=== PATIENT | female | born 1965 | race Asian ===

== ENCOUNTER 2020-03-28 13:14 | Outpatient (REF) | payer OTHER, SELFPAY ==
[2020-03-28 14:08] LABS: Basophils Absolute Auto 0.1 X10*3/uL (0.0-0.2); Basophils Percent Auto 1.8 % (0-2); Eosinophils Absolute Auto 0.7 X10*3/uL (0.0-0.4); Eosinophils Percent Auto 9.1 % (0-4); Imm Gran Abs Auto 0.02 X10*3/uL (0.00-0.03); Imm Gran Pct Auto 0.3 % (0.0-0.4); MANUAL DIFF FLAG SCAN; SCAN SMEAR FLAG 1
[2020-03-28 14:10] LABS: Hematocrit 25.3 % (37-47); Lymphocytes Absolute Auto 2.4 X10*3/uL (1.2-4.9); Lymphocytes Percent Auto 33.7 % (20-40); Mean Corpuscular HGB Conc 24.9 g/dl (31.0-35.0); Mean Corpuscular Hemoglobin 13.3 pg (27.0-33.0); Monocytes Absolute Auto 0.7 X10*3/uL (0.1-1.2); Monocytes Percent Auto 9.1 % (2-11); NRBC Pct Auto 0.6 /100WBC (0.0-0.2); Neutrophils Absolute Auto 3.3 X10*3/uL (2.0-8.3); Platelet Count 434 X10*3/uL (160-400); Red Blood Count 4.74 X10*6/uL (4.20-5.50); Red Cell Distribution Width 21.7 % (11.0-16.0); White Blood Count 7.3 X10*3/uL (4.8-10.8)
[2020-03-28 14:18] LABS: Mean Corpuscular Volume 53.4 fL (80-98)
[2020-03-28 14:19] LABS: Estimated Average Glucose 108 mg/dL; Hemoglobin A1c % 5.4 %
[2020-03-28 14:20] LABS: PLT ABN DIST 1
[2020-03-28 14:27] LABS: Hemoglobin 6.3 g/dl (12.0-16.0)
[2020-03-28 14:43] LABS: Anion Gap 12 (12-20); Blood Urea Nitrogen 14 mg/dL (9-16); Carbon Dioxide 25 mmol/L (22-29); Chloride 108 mmol/L (96-108); Cholesterol 115 mg/dL; Estimated Glomerular Filt Rate > 60; Glucose Fasting 94 mg/dL (60-99); HDL Cholesterol 34 mg/dL; LDL Cholesterol Calculated 57 mg/dl; Potassium 4.9 mmol/l (3.3-5.1); Sodium 140 mmol/L (135-145); Triglycerides 123 mg/dL
[2020-03-28 15:00] LABS: SLIDE REVIEW VERIFIED
[2020-03-28 15:01] LABS: Erythrocyte Sedimentation Rate 28 MM/HR (0-20)
[2020-03-30 09:37] LABS: SARS COV2 IgG Negative (Negative)
== END 2020-03-28 13:15 | disposition home or self-care (01) ==
LOC: HO.HMGCLDS 13:14
PROVIDERS: PCP Internal Medicine; Visit Provider Internal Medicine
DX: Z20.828 Contact with and (suspected) exposure to other viral communicable diseases (principal)
CPT/HCPCS: 36415; 80048; 80061; 83036; 85025; 85060; 85652; 86769

== ENCOUNTER 2020-04-09 12:12 | Outpatient (REF) | payer OTHER, SELFPAY ==
[2020-04-09 12:45] LABS: Basophils Absolute Auto 0.2 X10*3/uL (0.0-0.2); Hemoglobin 10.2 g/dl (12.0-16.0); Imm Gran Abs Auto 0.03 X10*3/uL (0.00-0.03); Imm Gran Pct Auto 0.3 % (0.0-0.4); MANUAL DIFF FLAG SCAN; Red Blood Count 5.67 X10*6/uL (4.20-5.50); SCAN SMEAR FLAG 1
[2020-04-09 12:47] LABS: Basophils Percent Auto 1.8 % (0-2); Eosinophils Absolute Auto 0.9 X10*3/uL (0.0-0.4); Eosinophils Percent Auto 9.4 % (0-4); Hematocrit 36.7 % (37-47); Lymphocytes Absolute Auto 2.7 X10*3/uL (1.2-4.9); Mean Corpuscular HGB Conc 27.8 g/dl (31.0-35.0); Mean Platelet Volume 9.6 fL (9.4-12.3); Monocytes Absolute Auto 0.8 X10*3/uL (0.1-1.2); Monocytes Percent Auto 8.3 % (2-11); Neutrophils Absolute Auto 4.5 X10*3/uL (2.0-8.3); Neutrophils Percent Auto 50.2 % (45-73); Platelet Count 453 X10*3/uL (160-400)
[2020-04-09 12:48] LABS: Mean Corpuscular Volume 64.7 fL (80-98)
[2020-04-09 12:49] LABS: PLT ABN DIST 1
[2020-04-09 13:35] LABS: SLIDE REVIEW VERIFIED
== END 2020-04-09 12:13 | disposition home or self-care (01) ==
LOC: HO.LAB 12:12
PROVIDERS: PCP Internal Medicine; Visit Provider Internal Medicine
DX: D64.9 Anemia, unspecified (principal)
CPT/HCPCS: 36415; 85025

== ENCOUNTER → 2020-05-08 14:08 | Outpatient (BNVA) | payer OTHER, SELFPAY | PROVIDERS: PCP Internal Medicine; Referring Provider Internal Medicine; Visit Provider Internal Medicine Gastroenterology | DX: Z76.89 Persons encountering health services in other specified circumstances (principal) ==

== ENCOUNTER → 2020-06-30 14:51 | Outpatient (BNVA) | payer OTHER, SELFPAY | PROVIDERS: PCP Internal Medicine; Visit Provider Internal Medicine Gastroenterology | DX: Z76.89 Persons encountering health services in other specified circumstances (principal) ==

== ENCOUNTER 2020-10-14 14:28 | Outpatient (REF) | payer OTHER, SELFPAY ==
[2020-10-14 16:26] LABS: MANUAL DIFF FLAG NO
[2020-10-14 16:29] LABS: Basophils Percent Auto 0.6 % (0-2); Eosinophils Absolute Auto 0.2 X10*3/uL (0.0-0.4); Eosinophils Percent Auto 3.5 % (0-4); Hematocrit 39.7 % (37-47); Hemoglobin 12.5 g/dl (12.0-16.0); Imm Gran Abs Auto 0.02 X10*3/uL (0.00-0.03); Imm Gran Pct Auto 0.3 % (0.0-0.4); Lymphocytes Absolute Auto 2.3 X10*3/uL (1.2-4.9); Lymphocytes Percent Auto 36.7 % (20-40); Mean Corpuscular HGB Conc 31.5 g/dl (31.0-35.0); Mean Corpuscular Hemoglobin 25.5 pg (27.0-33.0); Mean Platelet Volume 10.4 fL (9.4-12.3); Monocytes Absolute Auto 0.6 X10*3/uL (0.1-1.2); Monocytes Percent Auto 9.3 % (2-11); Neutrophils Absolute Auto 3.1 X10*3/uL (2.0-8.3); Neutrophils Percent Auto 49.6 % (45-73); Platelet Count 453 X10*3/uL (160-400); Red Cell Distribution Width 12.9 % (11.0-16.0); White Blood Count 6.3 X10*3/uL (4.8-10.8)
[2020-10-14 16:57] LABS: Alanine Aminotransferase 24 U/L (0-31); Alkaline Phosphatase 95 U/L (39-117); Anion Gap 13 (12-20); Aspartate Amino Transferase 35 U/L (5-31); Bilirubin Total 0.7 mg/dL (0.0-1.0); Blood Urea Nitrogen 13 mg/dL (9-16); Calcium 9.7 mg/dL (8.4-10.2); Carbon Dioxide 27 mmol/L (22-29); Chloride 107 mmol/L (96-108); Estimated Glomerular Filt Rate > 60; Glucose Random 95 mg/dL (60-115); Sodium 142 mmol/L (135-145); Total Protein 7.8 g/dL (6.5-8.0)
[2020-10-14 17:17] LABS: Ferritin 22 ng/mL (10-250)
== END 2020-10-14 14:29 | disposition home or self-care (01) ==
LOC: HO.HMGCLDS 14:28
PROVIDERS: PCP Internal Medicine; Visit Provider Internal Medicine Medical Oncology
DX: D50.9 Iron deficiency anemia, unspecified (principal); N93.8 Other specified abnormal uterine and vaginal bleeding
CPT/HCPCS: 36415; 80053; 82728; 85025

== ENCOUNTER 2020-11-03 15:56 | Outpatient (REF) | payer OTHER, SELFPAY | END 2020-11-03 15:57 | disposition home or self-care (01) | LOC: HO.LAB 15:56 | PROVIDERS: Visit Provider Internal Medicine | DX: Z20.822 Contact with and (suspected) exposure to COVID-19 (principal) | CPT/HCPCS: C9803; U0003; U0005 ==

== ENCOUNTER 2020-11-04 09:37 | Outpatient (REF) | payer OTHER, SELFPAY ==
[2020-11-04 13:18] LABS: Thyroid Stimulating Hormone 2.01 uIU/mL (0.32-4.0)
[2020-11-05 04:00] LABS: CT PCR NOT DETECTED (Not Detect.); NG PCR NOT DETECTED (Not Detect.)
[2020-11-05 09:48] LABS: BV Int Neg Control Negative (Negative); BV Int Pos Control Positive (Positive)
[2020-11-05 12:43] LABS: Follicle Stimulating Hormone 86.8 mIU/mL
[2020-11-07 15:11] LABS: HPV mRNA E6/E7 rflx Not Detected (Not Detected)
== END 2020-11-04 09:38 | disposition home or self-care (01) ==
LOC: HO.LAB 09:37
PROVIDERS: PCP Internal Medicine; Visit Provider Advanced Practice Midwife
DX: N93.9 Abnormal uterine and vaginal bleeding, unspecified (principal); N92.1 Excessive and frequent menstruation with irregular cycle; R23.2 Flushing; I10 Essential (primary) hypertension; R79.1 Abnormal coagulation profile; F41.9 Anxiety disorder, unspecified
CPT/HCPCS: 36415; 83001; 84443; 87480; 87491; 87510; 87591; 87624; 87660; 88142; 99202

== ENCOUNTER 2020-11-12 15:20 | Outpatient (REF) | payer OTHER, SELFPAY | END 2020-11-12 15:21 | disposition home or self-care (01) | LOC: HO.US 15:20 | PROVIDERS: PCP Internal Medicine; Visit Provider Advanced Practice Midwife | DX: Z13.89 Encounter for screening for other disorder (principal) ==

== ENCOUNTER 2020-11-18 16:01 | Outpatient (REF) | payer OTHER, SELFPAY ==
--- NOTE | ~2020-11-18 | US_ITS ---
EXAMINATION: US PELVIS CLINICAL INFORMATION: Abnormal uterine and vaginal bleeding. COMPARISON: None TECHNIQUE: Transabdominal pelvic ultrasound. Patient refused transvaginal exam. Exam is limited due to body habitus. FINDINGS: UTERUS: The uterus is anteverted and measures 9.1 x 5.7 x 5.1 cm. The endometrium is not seen. No focal uterine lesion is appreciated. Right ovary not seen. Left ovary measures 1.9 x 1.6 x 1.5 cm and is normal-appearing. There is no fluid in the pelvis. US/US pelvic complete IMPRESSION: Very limited exam. Endometrium not seen. Right ovary not seen. Patient declined transvaginal exam.
== END 2020-11-18 16:02 | disposition home or self-care (01) ==
LOC: HO.US 16:01
PROVIDERS: Visit Provider Advanced Practice Midwife
DX: N93.9 Abnormal uterine and vaginal bleeding, unspecified (principal)
CPT/HCPCS: 76856

== ENCOUNTER → 2020-11-27 13:15 | Outpatient (BNVA) | payer OTHER, SELFPAY | PROVIDERS: Visit Provider Advanced Practice Midwife ==

== ENCOUNTER 2020-12-10 14:13 | Outpatient (REF) | payer OTHER, SELFPAY | END 2020-12-10 14:14 | disposition home or self-care (01) | LOC: HO.LAB 14:13 | PROVIDERS: Visit Provider Advanced Practice Midwife | DX: N93.9 Abnormal uterine and vaginal bleeding, unspecified (principal) | CPT/HCPCS: 58100; 88305 ==

== ENCOUNTER → 2020-12-24 15:20 | Outpatient (BNVA) | payer OTHER, SELFPAY | PROVIDERS: Visit Provider Advanced Practice Midwife ==

== ENCOUNTER 2021-02-17 14:46 | Outpatient (REF) | payer OTHER, SELFPAY ==
--- NOTE | ~2021-02-17 | XR_ITS ---
EXAMINATION: BILATERAL KNEE X-RAY CLINICAL INFORMATION: Pain COMPARISON: None TECHNIQUE: 2 views of each knee FINDINGS: Left: Bone alignment is normal. No fracture or dislocation is seen. There is arthritis at the patellofemoral joint with osteophytes. There is no joint effusion. Right: Bone alignment is normal. No fracture or dislocation is seen. There is arthritis at the medial femoral tibial and patellofemoral joints with osteophyte formation. There is an osteophyte at the quadriceps tendon insertion to the patella. There is no joint effusion. XR/XR knee RT 2V IMPRESSION: Bilateral arthritis.
--- NOTE | ~2021-02-17 | XR_ITS ---
EXAMINATION: BILATERAL KNEE X-RAY CLINICAL INFORMATION: Pain COMPARISON: None TECHNIQUE: 2 views of each knee FINDINGS: Left: Bone alignment is normal. No fracture or dislocation is seen. There is arthritis at the patellofemoral joint with osteophytes. There is no joint effusion. Right: Bone alignment is normal. No fracture or dislocation is seen. There is arthritis at the medial femoral tibial and patellofemoral joints with osteophyte formation. There is an osteophyte at the quadriceps tendon insertion to the patella. There is no joint effusion. XR/XR knee LT 2V IMPRESSION: Bilateral arthritis.
[2021-02-17 16:44] LABS: MANUAL DIFF FLAG NO
[2021-02-17 16:55] LABS: Basophils Absolute Auto 0.1 X10*3/uL (0.0-0.2); Eosinophils Absolute Auto 0.5 X10*3/uL (0.0-0.4); Eosinophils Percent Auto 8.7 % (0-4); Hematocrit 44.9 % (37-47); Hemoglobin 14.5 g/dl (12.0-16.0); Imm Gran Abs Auto 0.01 X10*3/uL (0.00-0.03); Imm Gran Pct Auto 0.2 % (0.0-0.4); Lymphocytes Absolute Auto 2.4 X10*3/uL (1.2-4.9); Lymphocytes Percent Auto 41.4 % (20-40); Mean Corpuscular HGB Conc 32.3 g/dl (31.0-35.0); Mean Corpuscular Hemoglobin 25.5 pg (27.0-33.0); Mean Corpuscular Volume 78.9 fL (80-98); Mean Platelet Volume 10.3 fL (9.4-12.3); Monocytes Absolute Auto 0.5 X10*3/uL (0.1-1.2); Monocytes Percent Auto 7.8 % (2-11); Neutrophils Absolute Auto 2.4 X10*3/uL (2.0-8.3); Neutrophils Percent Auto 40.9 % (45-73); Platelet Count 255 X10*3/uL (160-400); Red Blood Count 5.69 X10*6/uL (4.20-5.50); White Blood Count 5.9 X10*3/uL (4.8-10.8)
[2021-02-17 17:21] LABS: Alanine Aminotransferase 60 U/L (0-31); Albumin Level 3.9 g/dL (3.5-5.0); Alkaline Phosphatase 101 U/L (39-117); Anion Gap 11 (12-20); Aspartate Amino Transferase 70 U/L (5-31); Bilirubin Total 0.7 mg/dL (0.0-1.0); Blood Urea Nitrogen 8 mg/dL (9-16); Calcium 9.4 mg/dL (8.4-10.2); Carbon Dioxide 26 mmol/L (22-29); Chloride 106 mmol/L (96-108); Estimated Glomerular Filt Rate > 60; Glucose Random 91 mg/dL (60-115); Potassium 4.3 mmol/L (3.3-5.1); Sodium 139 mmol/L (135-145); Total Protein 7.5 g/dL (6.5-8.0); Uric Acid 6.9 mg/dL (2.4-5.7)
== END 2021-02-17 14:47 | disposition home or self-care (01) ==
LOC: HO.HMGCX 14:46
PROVIDERS: PCP Internal Medicine; Visit Provider Internal Medicine
DX: Z00.01 Encounter for general adult medical examination with abnormal findings (principal); M25.561 Pain in right knee; M25.562 Pain in left knee; I10 Essential (primary) hypertension; D50.9 Iron deficiency anemia, unspecified
CPT/HCPCS: 36415; 73560; 80053; 84550; 85025

== ENCOUNTER 2021-03-10 15:55 | Outpatient (REF) | payer OTHER, SELFPAY ==
--- NOTE | ~2021-03-10 | MM_ITS ---
EXAMINATION: MM SCREENING DIGITAL BREAST TOMOSYNTHESIS, BILATERAL CLINICAL INFORMATION: Screening. Asymptomatic. The lifetime risk of breast cancer based on the Tyrer-Cuzick Model is 5.5%. COMPARISON: Mammography: 10/25/2018 and studies dating back to 09/06/2014 TECHNIQUE: Digital breast tomosynthesis is performed in both the craniocaudal and mediolateral oblique views along with computer-aided detection (CAD). Synthesized 2-D images are generated from the tomosynthesis. FINDINGS: There are scattered areas of fibroglandular density (ACR BI-RADS breast composition Category b). Within the deep lateral aspect of the left breast on craniocaudal view, there is an asymmetric density with question of a few calcifications not definitely seen on prior study, however, not as much posterior tissue was present on prior studies. Recommend spot magnification view in craniocaudal projection. Within the upper outer aspect of the right breast, there is a circumscribed 1.1 x 1.0 x 0.8 cm density without spiculation or calcification for which ultrasound is recommended. MM/MM tomosynthesis screening BI IMPRESSION: Right breast circumscribed density for which ultrasound is recommended. Density with a few calcifications about the deep lateral aspect of the left breast for which a spot magnification view is recommended. ASSESSMENT: BI-RADS 0: Incomplete - Need Additional Imaging Evaluation. RECOMMENDATION: 1. Additional views of the left breast. Right breast ultrasound. 2. Targeted ultrasound left breast if warranted after review of the additional views. 3. Radiology department staff will contact the patient for additional imaging. This patient's information was entered into a reminder system with a target due date for their next mammogram.
== END 2021-03-10 15:56 | disposition home or self-care (01) ==
LOC: HO.MAMMO 15:55
PROVIDERS: PCP Internal Medicine; Visit Provider Advanced Practice Midwife
DX: Z12.31 Encounter for screening mammogram for malignant neoplasm of breast (principal)
CPT/HCPCS: 77063; 77067

== ENCOUNTER 2021-03-24 09:39 | Outpatient (REF) | payer OTHER, SELFPAY ==
--- NOTE | ~2021-03-24 | US_ITS ---
EXAMINATION: MM DIAGNOSTIC DIGITAL MAMMOGRAPHY, LEFT US DIAGNOSTIC ULTRASOUND BREAST, RIGHT CLINICAL INFORMATION: Bilateral recall from screening for question of asymmetric density with calcification posterior upper outer left breast, and for smooth nodule with partly obscured margins posterior upper outer right breast. COMPARISON: Mammography: 11/07/2020, 10/25/2018, 11/12/2016, 09/06/2014 TECHNIQUE: Digital breast tomosynthesis is performed. 2D images are generated from the tomosynthesis. The following views are obtained: Magnification left CC, magnification left ML x2, Ultrasound right breast is targeted to the posterior upper outer breast. Grayscale imaging and color Doppler are performed. Patient declined additional scanning by the radiologist. FINDINGS: There are scattered areas of fibroglandular density (ACR BI-RADS breast composition Category b). Additional views left breast show no abnormal calcifications. There is no persistent asymmetric density or developing density in this area. Parenchymal pattern is similar to remote prior mammography left breast 2016 and 2014. Ultrasound right breast demonstrates an oblong simple cyst with circumscribed margins and anechoic lumen with real-time posterior acoustic enhancement and no associated color flow. Dimensions are 1.2 x 0.7 x 0.4 cm. This most likely corresponds to the finding on mammography. There is also an incidental node seen upper outer right breast with normal jonas architecture and overall size 0.7 cm. There is no solid mass or architectural abnormality. Patient declined additional ultrasound evaluation by the radiologist. Results are discussed with the patient and her son at time of visit. US/US breast RT limited IMPRESSION: 1. Left: Additional views show no significant changes from prior exams. 2. Right: Ultrasound demonstrates benign cyst in area of recent imaging concern. ASSESSMENT: BI-RADS 2: Benign RECOMMENDATION: Routine annual mammography screening. This patient's information was entered into a reminder system with a target due date for their next mammogram.
== END 2021-03-24 09:40 | disposition home or self-care (01) ==
LOC: HO.MAMMO 09:39
PROVIDERS: Visit Provider Internal Medicine
DX: R92.2 Inconclusive mammogram (principal); R92.1 Mammographic calcification found on diagnostic imaging of breast
CPT/HCPCS: 76642; 77065

== ENCOUNTER 2021-12-23 13:24 | Outpatient (REF) | payer OTHER, SELFPAY ==
[2021-12-23 14:01] LABS: MANUAL DIFF FLAG NO
[2021-12-23 14:06] LABS: Basophils Absolute Auto 0.1 X10*3/uL (0.0-0.2); Basophils Percent Auto 0.8 % (0-2); Eosinophils Absolute Auto 0.5 X10*3/uL (0.0-0.4); Hematocrit 47.7 % (37.0-47.0); Hemoglobin 15.3 g/dl (12.0-16.0); Imm Gran Abs Auto 0.01 X10*3/uL (0.00-0.03); Imm Gran Pct Auto 0.2 % (0.0-0.4); Lymphocytes Absolute Auto 3.1 X10*3/uL (1.2-4.9); Lymphocytes Percent Auto 47.6 % (20-40); Mean Corpuscular HGB Conc 32.1 g/dl (31.0-35.0); Mean Corpuscular Hemoglobin 25.5 pg (27.0-33.0); Mean Corpuscular Volume 79.4 fL (80.0-98.0); Mean Platelet Volume 10.2 fL (9.4-12.3); Monocytes Absolute Auto 0.5 X10*3/uL (0.1-1.2); Neutrophils Absolute Auto 2.4 x10*3/uL (2.0-8.3); Neutrophils Percent Auto 36.4 % (45-73); Platelet Count 271 X10*3/uL (160-400); Red Blood Count 6.01 X10*6/uL (4.20-5.50); Red Cell Distribution Width 13.2 % (11.0-16.0); White Blood Count 6.6 X10*3/uL (4.8-10.8)
[2021-12-23 14:31] LABS: Alanine Aminotransferase 57 U/L (0-31); Albumin Level 3.9 g/dL (3.5-5.0); Alkaline Phosphatase 115 U/L (39-117); Anion Gap 11 (12-20); Aspartate Amino Transferase 64 U/L (5-31); Bilirubin Total 0.8 mg/dL (0.0-1.0); Blood Urea Nitrogen 11 mg/dL (9-16); Calcium 9.4 mg/dL (8.4-10.2); Carbon Dioxide 27 mmol/L (22-29); Chloride 107 mmol/L (96-108); Cholesterol 169 mg/dL; Estimated Glomerular Filt Rate > 60; Glucose Fasting 101 mg/dL (60-99); HDL Cholesterol 53 mg/dL; LDL Cholesterol Calculated 91 mg/dl; Potassium 4.3 mmol/L (3.3-5.1); Sodium 141 mmol/L (135-145); Total Protein 7.6 g/dL (6.5-8.0); Triglycerides 129 mg/dL
== END 2021-12-23 13:25 | disposition home or self-care (01) ==
LOC: HO.HMGCLDS 13:24
PROVIDERS: PCP Internal Medicine; Visit Provider Internal Medicine
DX: I10 Essential (primary) hypertension (principal); K21.9 Gastro-esophageal reflux disease without esophagitis; M25.561 Pain in right knee; M25.562 Pain in left knee; M62.830 Muscle spasm of back; R21 Rash and other nonspecific skin eruption
CPT/HCPCS: 36415; 80053; 80061; 84443; 85025

== ENCOUNTER 2022-02-10 07:25 | Outpatient (REF) | payer OTHER, SELFPAY ==
--- NOTE | ~2022-02-10 | XR_ITS ---
EXAMINATION: XR KNEES, STANDING AP XR KNEE, RIGHT XR KNEE, LEFT CLINICAL INFORMATION: Bilateral knee pain. COMPARISON: Radiographs bilateral knees 02/17/2021. TECHNIQUE: Standing AP view of both knees is performed. Each knee is also imaged in lateral and axial patella views. FINDINGS: Right: Normal bony mineralization. No fracture, dislocation, or definite effusion. There is mild narrowing medial knee joint compartment and lateral patellofemoral joint. No erosive change or visible chondrocalcinosis. There are marginal osteophytes from the medial femoral condyle, lateral tibial plateau, and lateral patella. Probable mild lateral tilting of the patella. Degenerative changes are slightly increased since prior imaging 2020. Left: Normal bony mineralization. No fracture, dislocation, or definite effusion. There is mild narrowing medial knee joint compartment and the patellofemoral joint. No erosive change or visible chondrocalcinosis. There are marginal osteophytes from the medial femoral condyle, lateral tibial plateau, and lateral patella. No lateralization or tilting patella. Degenerative changes are slightly increased since prior imaging 2020. XR/XR knee RT 2V IMPRESSION: -Bilateral degenerative changes slightly increased since prior imaging 02/17/2021. -No definite effusion.
--- NOTE | ~2022-02-10 | XR_ITS ---
EXAMINATION: XR KNEES, STANDING AP XR KNEE, RIGHT XR KNEE, LEFT CLINICAL INFORMATION: Bilateral knee pain. COMPARISON: Radiographs bilateral knees 02/17/2021. TECHNIQUE: Standing AP view of both knees is performed. Each knee is also imaged in lateral and axial patella views. FINDINGS: Right: Normal bony mineralization. No fracture, dislocation, or definite effusion. There is mild narrowing medial knee joint compartment and lateral patellofemoral joint. No erosive change or visible chondrocalcinosis. There are marginal osteophytes from the medial femoral condyle, lateral tibial plateau, and lateral patella. Probable mild lateral tilting of the patella. Degenerative changes are slightly increased since prior imaging 2020. Left: Normal bony mineralization. No fracture, dislocation, or definite effusion. There is mild narrowing medial knee joint compartment and the patellofemoral joint. No erosive change or visible chondrocalcinosis. There are marginal osteophytes from the medial femoral condyle, lateral tibial plateau, and lateral patella. No lateralization or tilting patella. Degenerative changes are slightly increased since prior imaging 2020. XR/XR knee standing BI IMPRESSION: -Bilateral degenerative changes slightly increased since prior imaging 02/17/2021. -No definite effusion.
--- NOTE | ~2022-02-10 | XR_ITS ---
EXAMINATION: XR KNEES, STANDING AP XR KNEE, RIGHT XR KNEE, LEFT CLINICAL INFORMATION: Bilateral knee pain. COMPARISON: Radiographs bilateral knees 02/17/2021. TECHNIQUE: Standing AP view of both knees is performed. Each knee is also imaged in lateral and axial patella views. FINDINGS: Right: Normal bony mineralization. No fracture, dislocation, or definite effusion. There is mild narrowing medial knee joint compartment and lateral patellofemoral joint. No erosive change or visible chondrocalcinosis. There are marginal osteophytes from the medial femoral condyle, lateral tibial plateau, and lateral patella. Probable mild lateral tilting of the patella. Degenerative changes are slightly increased since prior imaging 2020. Left: Normal bony mineralization. No fracture, dislocation, or definite effusion. There is mild narrowing medial knee joint compartment and the patellofemoral joint. No erosive change or visible chondrocalcinosis. There are marginal osteophytes from the medial femoral condyle, lateral tibial plateau, and lateral patella. No lateralization or tilting patella. Degenerative changes are slightly increased since prior imaging 2020. XR/XR knee LT 2V IMPRESSION: -Bilateral degenerative changes slightly increased since prior imaging 02/17/2021. -No definite effusion.
== END 2022-02-10 07:26 | disposition home or self-care (01) ==
LOC: HO.HOSX 07:25
PROVIDERS: Visit Provider Physician Assistant
DX: M17.0 Bilateral primary osteoarthritis of knee (principal)
CPT/HCPCS: 73560; 73565; 99202

== ENCOUNTER 2022-10-15 12:17 | Outpatient (REF) | payer OTHER, SELFPAY ==
[2022-10-15 13:40] LABS: MANUAL DIFF FLAG NO
[2022-10-15 13:47] LABS: Basophils Absolute Auto 0.1 X10*3/uL (0.0-0.2); Basophils Percent Auto 1.2 % (0-2); Eosinophils Absolute Auto 0.3 X10*3/uL (0.0-0.4); Eosinophils Percent Auto 5.6 % (0-4); Hematocrit 44.8 % (37.0-47.0); Hemoglobin 14.6 g/dl (12.0-16.0); Imm Gran Abs Auto 0.01 X10*3/uL (0.00-0.03); Imm Gran Pct Auto 0.2 % (0.0-0.4); Lymphocytes Absolute Auto 1.9 X10*3/uL (1.2-4.9); Lymphocytes Percent Auto 33.1 % (20-40); Mean Corpuscular HGB Conc 32.6 g/dl (31.0-35.0); Mean Corpuscular Hemoglobin 26.2 pg (27.0-33.0); Mean Corpuscular Volume 80.4 fL (80.0-98.0); Mean Platelet Volume 10.9 fL (9.4-12.3); Monocytes Absolute Auto 0.6 X10*3/uL (0.1-1.2); Monocytes Percent Auto 9.8 % (2-11); Neutrophils Absolute Auto 2.9 x10*3/uL (2.0-8.3); Neutrophils Percent Auto 50.1 % (45-73); Platelet Count 260 X10*3/uL (160-400); Red Blood Count 5.57 X10*6/uL (4.20-5.50); Red Cell Distribution Width 12.9 % (11.0-16.0); White Blood Count 5.7 X10*3/uL (4.8-10.8)
[2022-10-15 14:08] LABS: Alanine Aminotransferase 74 U/L (0-31); Albumin Level 3.7 g/dL (3.5-5.0); Alkaline Phosphatase 116 U/L (39-117); Anion Gap 12 (12-20); Aspartate Amino Transferase 94 U/L (5-31); Bilirubin Total 0.6 mg/dL (0.0-1.0); Blood Urea Nitrogen 14 mg/dL (9-16); Calcium 9.4 mg/dL (8.4-10.2); Carbon Dioxide 24 mmol/L (22-29); Chloride 108 mmol/L (96-108); Estimated Glomerular Filt Rate > 60; Glucose Random 109 mg/dL (60-115); Potassium 4.2 mmol/L (3.3-5.1); Sodium 140 mmol/L (135-145); Total Protein 7.1 g/dL (6.5-8.0)
[2022-10-18 01:49] LABS: LDL Cholesterol Direct 87 mg/dL (<100)
== END 2022-10-15 12:18 | disposition home or self-care (01) ==
LOC: HO.HMGCLDS 12:17
PROVIDERS: PCP Internal Medicine; Visit Provider Internal Medicine
DX: I10 Essential (primary) hypertension (principal); F41.1 Generalized anxiety disorder; R10.13 Epigastric pain; D64.9 Anemia, unspecified; L29.9 Pruritus, unspecified; K21.9 Gastro-esophageal reflux disease without esophagitis; M17.0 Bilateral primary osteoarthritis of knee
CPT/HCPCS: 36415; 80053; 83721; 84443; 85025

== ENCOUNTER 2022-12-17 16:32 | Outpatient (REF) | payer OTHER, SELFPAY ==
--- NOTE | ~2022-12-17 | XR_ITS ---
EXAMINATION: XR TIBIA AND FIBULA, LEFT CLINICAL INFORMATION: Pain. COMPARISON: None available. TECHNIQUE: AP and lateral views of the left tibia and fibula were obtained. FINDINGS: No acute fractures or malalignment. No significant soft tissue abnormality. No unexpected radiopaque foreign bodies. XR/XR tibia fibula LT 2V IMPRESSION: No acute fractures or malalignment.
--- NOTE | ~2022-12-17 | XR_ITS ---
EXAMINATION: XR KNEE, LEFT CLINICAL INFORMATION: Pain. COMPARISON: Radiograph left knee 02/10/2022. TECHNIQUE: Four views of the left knee. FINDINGS: No evidence of acute fractures or subluxation. Mild joint space narrowing and subcortical sclerosis of the medial and patellofemoral compartments. No erosions or chondrocalcinosis. No joint effusion. XR/XR knee LT 4V IMPRESSION: 1. No acute fractures or subluxation. 2. Mild degenerative osteoarthritis of the medial and patellofemoral compartments.
--- NOTE | ~2022-12-17 | XR_ITS ---
EXAMINATION: XR ANKLE, LEFT CLINICAL INFORMATION: Pain. COMPARISON: None available. TECHNIQUE: AP, lateral, and mortise views of the left ankle. FINDINGS: No acute fractures or malalignment. Nonspecific soft tissue thickening more prominent adjacent to the medial malleolus and along the anterior surface of the ankle. No unexpected radiopaque foreign bodies. XR/XR ankle LT min 3V IMPRESSION: 1. No acute fractures or malalignment. 2. Nonspecific soft tissue thickening, more prominent adjacent to the medial malleolus and anterior surface of the ankle.
== END 2022-12-17 16:33 | disposition home or self-care (01) ==
LOC: HO.HMGCX 16:32
PROVIDERS: PCP Internal Medicine; Visit Provider Physician Assistant Medical
DX: M25.562 Pain in left knee (principal); S99.912A Unspecified injury of left ankle, initial encounter
CPT/HCPCS: 73564; 73590; 73610

== ENCOUNTER 2023-01-14 10:39 | Outpatient (AMB) | payer OTHER, SELFPAY ==
--- NOTE | 2023-01-14 10:58 | A.OFFVIS_ITS ---
Intake Intake Visit Reasons: FC- Left Ankle Sprain Intake Note: Jyoti 57 yr old female who is right hand dominant who speaks Thai presents today with her son Matthew for her left ankle injury from DOI 12/17/22. States she fell by a play area. States she fell and sat on her own ankle. Seen in walk in center same day where xrays were taken and was given a boot. Also seen with her PCP who told her to D/C boot. Currently patient states she cont's to have pain and is limited with her ROM. Allergies No Known Allergies [No Known Allergies*] Allergy (Verified 01/14/23 11:04) HPI FC- Left Ankle Sprain HPI Details 57-year-old right hand dominant Thai speaking female who presents to the office today with her son for evaluation of left ankle injury s/p fall by a play area and sitting on her own ankle, 12/17/22. She was seen at walk-in center the same day where x-rays were performed and she was placed in a boot. She was also seen by her PCP where she was told to discontinue the boot. She currently states she has pain in her ankle which makes her limited with ROM. She had tried Celebrex in the past with benefits but she had to discontinue it due to her history of hypertension. [facility], [facility] Medical History Anxiety, generalized Dyspepsia Hypertension, essential Low hematocrit Microcytic anemia Normal colonoscopy Surgical History Hx of colonoscopy (~10/2014) Family History Father Heart attack Mother Hepatitis C HTN (hypertension) Social History Household Members Other:: . 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 No discomfort along the posterior aspect of the ankle, no deformity along the Achilles tendon, negative Velazco?s. No pain along the syndesmosis or anterior tibia. No laxity, NVI. Results Reviewed Results Reviewed: xrays of the left ankle are negative for fracture or dislocation Assessment & Plan Assessment & Plan (1) Left ankle sprain: Code(s): S93.402A - Sprain of unspecified ligament of left ankle, initial encounter Plan She was fit for an off the shelf lace-up ankle brace and also referred to physical therapy. She should increase activity as tolerated and continue to take anti-inflammatories as directed by her PCP. Due to her hypertension, she cannot take high doses of medications. If symptoms persist or worsens, patient will contact the office, otherwise follow-up as needed. Orders: Orders PT Evaluation and Treatment Today S93.402A - Sprain of unspecified ligament of left ankle, initial encounter Patient Instructions: Scribed for Lou Johnson PA-C, by Toi Avelar medical sales associate, on 01/14/2023 at 10:30 AM EST. I, Lou Johnson PA-C, have personally reviewed and agree with the information entered by the scribe. Coding Level of Care Code Est Pt Level 3 (70426) Diagnoses Left ankle sprain S93.402A
== END 2023-01-14 12:17 | disposition home or self-care (01) ==
PROVIDERS: PCP Internal Medicine; Visit Provider Physician Assistant
DX: S93.402A Sprain of unspecified ligament of left ankle, initial encounter (principal)
CPT/HCPCS: 99213

== ENCOUNTER → 2023-01-14 10:39 | Outpatient (BNVA) | payer OTHER, SELFPAY | PROVIDERS: PCP Internal Medicine; Visit Provider Physician Assistant | DX: S93.402A Sprain of unspecified ligament of left ankle, initial encounter (principal) | CPT/HCPCS: 99212 ==

== ENCOUNTER 2023-02-15 14:01 | Outpatient (AMB) | payer OTHER, SELFPAY ==
--- NOTE | 2023-02-15 14:13 | A.OFFPC_ITS ---
Vital Signs 02/15/23 14:15 Weight 162 lb BP 120/88 Blood Pressure Location Lt brachial Position Sitting Pulse 64 Pulse Source Pulse Oximeter Pulse Oximetry (%) 98 Oxygen Delivery Method Room Air Intake Visit Reasons: PE Allergies No Known Allergies [No Known Allergies*] Allergy (Verified 02/15/23 14:16) Medication List - Last Reconciled 02/15/23 by Jose Manuel Saleh MD acetaminophen 500 mg PO Q6H PRN 90 days atenolol 100 mg PO DAILY 90 days celecoxib (Celebrex) 200 mg PO ONCE PRN 90 days cholecalciferol (vitamin D3) 25 mcg PO DAILY 90 days clonidine HCl 0.2 mg PO BEDTIME clotrimazole-betamethasone 1-0.05 % 1 appl topical ONCE 30 days cyclobenzaprine 5 mg PO BEDTIME 30 days fluticasone propionate 50 mcg/actuation (Allergy Relief (fluticasone)) 1 spray intranasal DAILY 30 days hydroxyzine HCl 25 mg PO BEDTIME PRN 90 days losartan-hydrochlorothiazide 100-25 mg 1 tab PO DAILY multivitamin 1 cap PO DAILY pantoprazole 40 mg PO BEDTIME Tobacco use date assessed: 12/31/22 HPI PE HPI Details Physical exam appointment Mammogram up-to-date Colonoscopy 2014 Pap smear 2020 LFT elevated but stable Due for labs Blood pressure is fluctuating up and down due to stress at home Blood pressure is well controlled today Patient is requesting orthopedic appointment for knee pain, referral created Follow-up 3 months [facility] Medical History Anxiety, generalized Dyspepsia Hypertension, essential Low hematocrit Microcytic anemia Normal colonoscopy Surgical History Hx of colonoscopy (~10/2014) Family History Father Heart attack Mother Hepatitis C HTN (hypertension) Social History Household Members Other:: . 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 1. Little interest or pleasure in doing things: not at all 2. Feeling down, depressed, or hopeless: not at all 3. Trouble falling or staying asleep, or sleeping too much: not at all 4. Feeling tired or having little energy: several days 5. Poor appetite or overeating: not at all 6. Feeling bad about yourself - or that you are a failure or have let yourself or your family down: not at all 7. Trouble concentrating on things, such as reading the newspaper or watching television: not at all 8. Moving or speaking so slowly that other people could have noticed. Or the opposite - being so fidgety or restless that you have been moving around a lot more than usual: not at all 9. Thoughts that you would be better off or of hurting yourself in some way: not at all Total score: 1 Depression Screening Interpretation: Negative 31257 - PHQ-9 Billing: Yes Source: Developed by Drs. Lio Ogden, Mildred Paez, Gen Butler and colleagues, with an educational radha from [employer]. Thrive Questionnaire Date Thrive assessed: 12/23/21 Review of Systems Const Denies chills, Denies fever(s) and Denies headache(s) Eyes Denies blurry vision ENT Denies headache(s), Denies nasal discharge, Denies nasal obstruction, Denies odynophagia and Denies sinus pain Card Denies chest pain at rest and Denies chest pain with activity Resp Denies cough and Denies hemoptysis GI Denies diarrhea, Denies odynophagia, Denies vomiting and Denies hematemesis Reports as per HPI Musc Denies abnormal gait Skin/Breast Reports as per HPI Neuro Denies Neuro-related abnormal movements, Denies Abnormal speech present, Denies abnormal gait, Denies headache(s) and Denies Sensory deficit (Neuro) Psych Denies mood swings and Denies paranoia Endo Reports as per HPI Dell/Lymph Reports as per HPI Aller/Immun Reports as per HPI Physical exam (Primary Care) Vital Signs: Last Vital Signs Pulse 64 02/15/23 14:15 BP 120/88 08/22/23 14:15 Pulse Ox 98 02/15/23 14:15 Oxygen Delivery Method Room Air 02/15/23 14:15 Tobacco/Smoking Status: Tobacco use Status Tobacco use date assessed 12/31/22 02/15/23 14:15 Patient Tobacco Use Status Never used Tobacco 02/15/23 14:15 e-Cigarette/Vaping Use Never Used 02/15/23 14:15 Depression Screening Interpretation: Negative Thrive Assessment: Date of Thrive Assessment Date Thrive assessed 12/23/21 02/15/23 14:15 Const General: cooperative, comfortable and no acute distress Orientation/consciousness: patient oriented x3 HENMT Head: Yes normocephalic and Yes atraumatic Eyes General: appearance normal, both eyes and all related structures Pupils: Equal, round and reactive pupils present EOM: EOMs intact bilaterally Neck Neck: Yes supple and No lymphadenopathy Thyroid: Thyroid normal Lymphatic: no lymphadenopathy noted Chest Other: Breast exam declined Resp Effort & Inspection: normal respiratory effort and able to speak in complete sen tences Auscultation: clear to auscultation bilaterally Cardio Heart sounds: S1 normal heart sound present and S2 normal heart sound present GI Palpation (GI): Soft to palpation and nontender Auscultation: normal bowel sounds General: Yes no CVA tenderness Back/Spine/Pelvis Back: no CVA tenderness Skin General skin exam: elasticity normal and turgor normal Neuro General: patient oriented x3 and gait normal Cranial nerves: Yes Equal, round and reactive pupils present Speech: No Abnormal speech present Sensory Exam: No Sensory deficit (Neuro) Coordination: tandem gait normal and Romberg test negative Extrem General: Yes normal exam except as noted and No edema Assessment and Plan Assessment & Plan (1) Encounter for general adult medical examination with abnormal findings: Code(s): Z00.01 - Encounter for general adult medical examination with abnormal findings (2) Hypertension, essential: Comment: continue medications Code(s): I10 - Essential (primary) hypertension (3) Anxiety, generalized: Comment: continue medications Code(s): F41.1 - Generalized anxiety disorder (4) Microcytic anemia: Code(s): D50.9 - Iron deficiency anemia, unspecified (5) GERD (gastroesophageal reflux disease): Code(s): K21.9 - Gastro-esophageal reflux disease without esophagitis (6) Chronic constipation: Code(s): K59.09 - Other constipation (7) Stress at home: Code(s): F43.9 - Reaction to severe stress, unspecified (8) Knee pain, bilateral: Code(s): M25.561 - Pain in right knee; M25.562 - Pain in left knee Orders: Orders Comprehensive Met. Panel Today D50.9 - Iron deficiency anemia, unspecified, F41.1 - Generalized anxiety disorder, F43.9 - Reaction to severe stress, unspecified, I10 - Essential (primary) hypertension, K21.9 - Gastro-esophageal reflux disease without esophagitis, K59.09 - Other constipation, Z00.01 - Encounter for general adult medical examination with abnormal findings LDL Cholesterol Direct Today D50.9 - Iron deficiency anemia, unspecified, F41.1 - Generalized anxiety disorder, F43.9 - Reaction to severe stress, unspecified, I10 - Essential (primary) hypertension, K21.9 - Gastro-esophageal reflux disease without esophagitis, K59.09 - Other constipation, Z00.01 - Encounter for general adult medical examination with abnormal findings Complete Blood Count Auto Diff Today D50.9 - Iron deficiency anemia, unspecified, F41.1 - Generalized anxiety disorder, F43.9 - Reaction to severe stress, unspecified, I10 - Essential (primary) hypertension, K21.9 - Gastro- esophageal reflux disease without esophagitis, K59.09 - Other constipation, Z00.01 - Encounter for general adult medical examination with abnormal findings MM tomosynthesis screening BI Today Z12.31 - Encounter for screening mammogram for malignant neoplasm of breast Referrals Orthopedics Referral M25.561 - Pain in right knee, M25.562 - Pain in left knee Medications: Refilled atenolol 100 mg PO DAILY 90 tabs 1RF 90 days I10 - Essential (primary) hypertension clonidine HCl 0.2 mg PO BEDTIME 90 tabs 1RF losartan-hydrochlorothiazide 100-25 mg 1 tab PO DAILY 90 tabs 1RF pantoprazole 40 mg PO BEDTIME 90 tabs 0RF Stomach acid celecoxib (Celebrex) 200 mg PO ONCE PRN 90 caps 0RF pain knee 90 days cholecalciferol (vitamin D3) 25 mcg PO DAILY 90 tabs 1RF Vitamin-D supplement 90 days acetaminophen 500 mg PO Q6H PRN 180 tabs 0RF Pain knee 90 days Discontinued cyclobenzaprine Discontinued Reason: Doctor's Order 5 mg PO BEDTIME 30 days 30 tabs 0RF M54.9 - Dorsalgia, unspecified hydroxyzine HCl Discontinued Reason: Doctor's Order 25 mg PO BEDTIME 90 days PRN 90 tabs 0RF itching Coding Level of Care Code Est Pt Prev Care 40-64y(78385) Diagnoses Encounter for general adult medical examination with abnormal findings Z00.01 Hypertension, essential I10 Anxiety, generalized F41.1 Microcytic anemia D50.9 GERD (gastroesophageal reflux disease) K21.9 Chronic constipation K59.09 Stress at home F43.9 Knee pain, bilateral M25.561; M25.562
[2023-02-15 14:15] VITALS: BP 120/88; PULSE 64; O2SAT 98
== END 2023-02-15 14:47 | disposition home or self-care (01) ==
PROVIDERS: Visit Provider Internal Medicine
DX: Z00.01 Encounter for general adult medical examination with abnormal findings (principal); I10 Essential (primary) hypertension; K21.9 Gastro-esophageal reflux disease without esophagitis; F43.9 Reaction to severe stress, unspecified; F41.1 Generalized anxiety disorder; D50.9 Iron deficiency anemia, unspecified; K59.09 Other constipation; M25.561 Pain in right knee; M25.562 Pain in left knee
CPT/HCPCS: 99396

== ENCOUNTER 2023-02-15 14:42 | Outpatient (REF) | payer OTHER, SELFPAY ==
[2023-02-15 16:10] LABS: MANUAL DIFF FLAG NO
[2023-02-15 16:18] LABS: Basophils Absolute Auto 0.1 X10*3/uL (0.0-0.2); Basophils Percent Auto 1.2 % (0-2); Eosinophils Absolute Auto 0.2 X10*3/uL (0.0-0.4); Hematocrit 48.1 % (37.0-47.0); Hemoglobin 15.4 g/dl (12.0-16.0); Imm Gran Abs Auto 0.02 X10*3/uL (0.00-0.03); Imm Gran Pct Auto 0.3 % (0.0-0.4); Lymphocytes Absolute Auto 2.8 X10*3/uL (1.2-4.9); Mean Corpuscular Volume 81.3 fL (80.0-98.0); Monocytes Absolute Auto 0.6 X10*3/uL (0.1-1.2); Monocytes Percent Auto 7.9 % (2-11); Neutrophils Percent Auto 51.6 % (45-73); Platelet Count 294 X10*3/uL (160-400); Red Blood Count 5.92 X10*6/uL (4.20-5.50); Red Cell Distribution Width 13.2 % (11.0-16.0); White Blood Count 7.8 X10*3/uL (4.8-10.8)
[2023-02-15 17:01] LABS: Alanine Aminotransferase 71 U/L (0-31); Alkaline Phosphatase 98 U/L (39-117); Anion Gap 13 (12-20); Aspartate Amino Transferase 79 U/L (5-31); Bilirubin Total 0.6 mg/dL (0.0-1.0); Blood Urea Nitrogen 16 mg/dL (9-16); Calcium 10.6 mg/dL (8.4-10.2); Carbon Dioxide 26 mmol/L (22-29); Chloride 109 mmol/L (96-108); Estimated Glomerular Filt Rate > 60; Glucose Random 108 mg/dL (60-115); Potassium 3.9 mmol/L (3.3-5.1); Sodium 144 mmol/L (135-145); Total Protein 8.2 g/dL (6.5-8.0)
[2023-02-16 19:17] LABS: LDL Cholesterol Direct 104 mg/dL (<100)
== END 2023-02-15 14:43 | disposition home or self-care (01) ==
LOC: HO.HMGCLDS 14:42
PROVIDERS: PCP Internal Medicine; Visit Provider Internal Medicine
DX: Z00.01 Encounter for general adult medical examination with abnormal findings (principal); D50.9 Iron deficiency anemia, unspecified; F41.1 Generalized anxiety disorder; F43.9 Reaction to severe stress, unspecified; K21.9 Gastro-esophageal reflux disease without esophagitis; K59.09 Other constipation; I10 Essential (primary) hypertension
CPT/HCPCS: 36415; 80053; 83721; 85025

== ENCOUNTER 2023-03-28 09:54 | Outpatient (REF) | payer OTHER, SELFPAY ==
--- NOTE | ~2023-03-28 | XR_ITS ---
EXAMINATION: XR KNEE, AP STANDING, BILATERAL XR KNEE, 2 VIEWS, LEFT XR KNEE, 2 VIEWS, RIGHT CLINICAL INFORMATION: Bilateral knee pain. COMPARISON: 12/17/2022 and 02/10/2022. TECHNIQUE: Standing AP view of both knees and lateral and sunrise views of each knee. FINDINGS: LEFT KNEE: Small marginal osteophytes are present in the patellofemoral and medial compartments with mild associated joint space narrowing. Small marginal osteophytes in the lateral compartment without appreciable joint space narrowing. No effusion. No fracture or malalignment. No erosions or chondrocalcinosis. Findings are similar to the prior study from November of this year. Small enthesopathic spur at the quadriceps tendon insertion. RIGHT KNEE: Small tricompartmental marginal osteophytes. Mild medial and patellofemoral compartment joint space narrowing. Lateral compartment joint space appears relatively well preserved. No effusion. Small enthesopathic spur at the quadriceps tendon insertion. No fracture or malalignment. No erosions or chondrocalcinosis. Findings are unchanged from the prior study from 2021. XR/XR knee standing BI IMPRESSION: No significant change in the mild tricompartmental osteoarthritis in both knees, more notably in the medial and patellofemoral compartments.
--- NOTE | ~2023-03-28 | XR_ITS ---
EXAMINATION: XR KNEE, AP STANDING, BILATERAL XR KNEE, 2 VIEWS, LEFT XR KNEE, 2 VIEWS, RIGHT CLINICAL INFORMATION: Bilateral knee pain. COMPARISON: 12/17/2022 and 02/10/2022. TECHNIQUE: Standing AP view of both knees and lateral and sunrise views of each knee. FINDINGS: LEFT KNEE: Small marginal osteophytes are present in the patellofemoral and medial compartments with mild associated joint space narrowing. Small marginal osteophytes in the lateral compartment without appreciable joint space narrowing. No effusion. No fracture or malalignment. No erosions or chondrocalcinosis. Findings are similar to the prior study from November of this year. Small enthesopathic spur at the quadriceps tendon insertion. RIGHT KNEE: Small tricompartmental marginal osteophytes. Mild medial and patellofemoral compartment joint space narrowing. Lateral compartment joint space appears relatively well preserved. No effusion. Small enthesopathic spur at the quadriceps tendon insertion. No fracture or malalignment. No erosions or chondrocalcinosis. Findings are unchanged from the prior study from 2021. XR/XR knee LT 1V IMPRESSION: No significant change in the mild tricompartmental osteoarthritis in both knees, more notably in the medial and patellofemoral compartments.
--- NOTE | ~2023-03-28 | XR_ITS ---
EXAMINATION: XR KNEE, AP STANDING, BILATERAL XR KNEE, 2 VIEWS, LEFT XR KNEE, 2 VIEWS, RIGHT CLINICAL INFORMATION: Bilateral knee pain. COMPARISON: 12/17/2022 and 02/10/2022. TECHNIQUE: Standing AP view of both knees and lateral and sunrise views of each knee. FINDINGS: LEFT KNEE: Small marginal osteophytes are present in the patellofemoral and medial compartments with mild associated joint space narrowing. Small marginal osteophytes in the lateral compartment without appreciable joint space narrowing. No effusion. No fracture or malalignment. No erosions or chondrocalcinosis. Findings are similar to the prior study from November of this year. Small enthesopathic spur at the quadriceps tendon insertion. RIGHT KNEE: Small tricompartmental marginal osteophytes. Mild medial and patellofemoral compartment joint space narrowing. Lateral compartment joint space appears relatively well preserved. No effusion. Small enthesopathic spur at the quadriceps tendon insertion. No fracture or malalignment. No erosions or chondrocalcinosis. Findings are unchanged from the prior study from 2021. XR/XR knee RT 2V IMPRESSION: No significant change in the mild tricompartmental osteoarthritis in both knees, more notably in the medial and patellofemoral compartments.
== END 2023-03-28 09:55 | disposition home or self-care (01) ==
LOC: HO.HOSX 09:54
PROVIDERS: Visit Provider Physician Assistant
DX: M25.561 Pain in right knee (principal); M25.562 Pain in left knee
CPT/HCPCS: 20610; 73560; 73565; 99212; J1040

== ENCOUNTER 2023-03-28 13:50 | Outpatient (AMB) | payer OTHER, SELFPAY ==
--- NOTE | 2023-03-28 14:06 | MHC.OFFVIS ---
Intake Vital Signs 03/28/23 14:07 Height 5 ft 3 in Weight 162 lb BMI 28.7 Intake Visit Reasons: ov- B/L knee pain Intake Note: getting worse making it difficult to wlak, knee locks. She would like to go forward with bilateral cortisone injection. Allergies No Known Allergies [No Known Allergies*] Allergy (Verified 02/15/23 14:16) HPI ov- B/L knee pain HPI Details Ms. Beaver is a 58-year-old female who presents the office today for bilateral knee pain. She is accompanied by her son. She reports that she has been having ongoing knee pain for quite some time. Roughly about 4 months. She has been seen in the past by Lou Johnson PA-C, where cortisone injections were discussed. She would like to proceed with this while in the office today. [facility] Medical History Anxiety, generalized Dyspepsia Hypertension, essential Low hematocrit Microcytic anemia Normal colonoscopy Surgical History Hx of colonoscopy (~10/2014) Family History Father Heart attack Mother Hepatitis C HTN (hypertension) Social History Household Members Other:: . 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 Crepitus felt with range of motion. Tenderness to palpation medial and lateral joint lines bilaterally which is mild. Negative Kari. Negative anterior drawer. NVI. Office Procedures Joint Injection/Drain Joint Injection/Drain Primary Site: right knee Secondary Site: left knee Injected: 80 mg of, DepoMedrol, with 8 mL of (2% plain lidocaine) and in the joint Approach Used: anterolateral Coding - Large joint Procedure code (CPT) selection complete Results Reviewed Results Reviewed: 03/28/23 14:05 Lidocaine HCl 2 % MPF [Xylocaine 2 % MPF] 5 ml .ROUTE .STK-MED ONE methylPREDNISolone acetate [DEPO-MedroL] 80 mg .ROUTE .STK-MED ONE Assessment & Plan Assessment & Plan (1) Knee pain, bilateral: Code(s): M25.561 - Pain in right knee; M25.562 - Pain in left knee Plan: Ms. Beaver is a 58-year-old female who presents the office today for bilateral knee pain. She is accompanied by her son. She reports that she has been having ongoing knee pain for quite some time. Roughly about 4 months. She has been seen in the past by Lou Johnson PA-C, where cortisone injections were discussed. She would like to proceed with this while in the office today. After obtaining consent I injected both knees. Patient tolerated procedure very well. There were no complications. Instructed the patient that she may have an increase in pain over the next several days. Should this occur she should take Tylenol ibuprofen as needed for pain. She reports that she will be relieving the country for the next 2-3 months she will follow-up upon her return if needed. X-rays obtained the office today reveal osteoarthritis bilateral knees. Orders: Orders XR knee LT 1V Today M25.569 - Pain in unspecified knee XR knee RT 2V Today M25.569 - Pain in unspecified knee XR knee standing BI Today M25.569 - Pain in unspecified knee Coding Level of Care Code Est Pt Level 3 (33096) Diagnoses Knee pain, bilateral M25.561; M25.562 CPT Codes Coding - Large joint: 48222 - Large joint ([id number])
[2023-03-28 14:07] VITALS: BMI 28.7
== END 2023-03-28 14:28 | disposition home or self-care (01) ==
PROVIDERS: PCP Internal Medicine; Visit Provider Physician Assistant
DX: M25.561 Pain in right knee (principal); M25.562 Pain in left knee
CPT/HCPCS: 20610; 99213

== ENCOUNTER → 2023-03-29 14:30 | Outpatient (BNV) | payer OTHER, SELFPAY | PROVIDERS: PCP Internal Medicine; Visit Provider Radiology Diagnostic Radiology | DX: Z12.31 Encounter for screening mammogram for malignant neoplasm of breast (principal) | CPT/HCPCS: 77063; 77067 ==

== ENCOUNTER 2023-03-29 14:32 | Outpatient (REF) | payer OTHER, SELFPAY | END 2023-03-29 14:33 | disposition home or self-care (01) | LOC: HO.MAMMO 14:32 | PROVIDERS: PCP Internal Medicine; Visit Provider Internal Medicine | DX: Z12.31 Encounter for screening mammogram for malignant neoplasm of breast (principal) | CPT/HCPCS: 77063; 77067 ==

== ENCOUNTER 2023-09-02 08:18 | Outpatient (REF) | payer OTHER, SELFPAY | END 2023-09-02 08:19 | disposition home or self-care (01) | LOC: HO.HOSX 08:18 | PROVIDERS: PCP Internal Medicine; Visit Provider Physician Assistant | DX: M17.0 Bilateral primary osteoarthritis of knee (principal) | CPT/HCPCS: 20610; 99212; J1040 ==

== ENCOUNTER 2023-09-02 08:18 | Outpatient (AMB) | payer OTHER, SELFPAY ==
--- NOTE | 2023-09-02 08:19 | A.OFFVIS_ITS ---
Intake Intake Visit Reasons: OV - B/L knee OA, last inj 03/28/23 Intake Note: Jyoti is a 58 year old female who presents today for a follow up for her bilateral knee OA, last inj 03/28/23. Patient reports her last injection gave her relief for 3 months. She states that she would like to repeat. Allergies No Known Allergies [No Known Allergies*] Allergy (Verified 09/02/23 08:35) HPI OV - B/L knee OA, last inj 03/28/23 HPI Details 58-year-old female, presents in the offi ce today for a follow up of bilateral knee pain. I last saw the patient on 03/28/2023 at which time she received cortisone injections in the bilateral knees. While in the office today the patient reports the last injection gave her about 3 months of relief. She would like to repeat the injections today. [facility] Medical History Anxiety, generalized Dyspepsia Hypertension, essential Low hematocrit Microcytic anemia Normal colonoscopy Surgical History Hx of colonoscopy (~10/2014) Family History Father Heart attack Mother Hepatitis C HTN (hypertension) Social History Household Members Other:: . 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 Crepitus felt with range of motion. Tenderness to palpation medial and lateral joint lines bilaterally which is mild. Negative Kari. Negative anterior drawer. NVI. Office Procedures Joint Injection/Drain Joint Injection/Drain Primary Site: right knee Secondary Site: left knee Injected: 80 mg of, DepoMedrol, with 8 mL of (2% plain lido) and in the joint Approach Used: anterolateral Procedure: The patient tolerated the procedure well, but had some pain with the injection and there was some relief with the local anesthesia Coding - Large joint Procedure code (CPT) selection complete Assessment & Plan Assessment & Plan (1) Knee pain, bilateral: Code(s): M25.561 - Pain in right knee; M25.562 - Pain in left knee Plan Ms. Beaver is a 58-year-old female, presents in the office today for a follow up of bilateral knee pain. I last saw the patient on 03/28/2023 at which time she received cortisone injections in the bilateral knees. While in the office today the patient reports the last injection gave her about 3 months of relief. She would like to repeat the injections today. The patient was offered a cortisone injection in the bilateral knees with 80 mg of DepoMedrol. The patient was explained the risk, benefits, and alternatives to receiving this injection. After receiving consent for the injection, the patient had the procedure done while in office today. The patient tolerated the procedure well with no complications. Follow up will be PRN, or sooner if needed. Patient Instructions: Scribed by Anastasia Zeng medical billing and coding instructor, for Adelina Martins PA-C on 09/02/2023 at 8:34 am, EST. Coding Level of Care Code Est Pt Level 3 (96709) Diagnoses Knee pain, bilateral M25.561; M25.562 CPT Codes Coding - Large joint: 49914 - Large joint ([id number])
== END 2023-09-02 08:36 | disposition home or self-care (01) ==
PROVIDERS: PCP Internal Medicine; Visit Provider Physician Assistant
DX: M25.561 Pain in right knee (principal); M25.562 Pain in left knee
CPT/HCPCS: 20610; 99213

== ENCOUNTER 2023-11-15 14:59 | Outpatient (AMB) | payer OTHER, SELFPAY ==
--- NOTE | 2023-11-15 15:02 | A.OFFPC_ITS ---
Vital Signs 11/15/23 15:03 Height 5 ft 3 in Weight 163 lb 6 oz BMI 28.9 BP 156/90 H Blood Pressure Location Rt brachial Position Sitting Pulse 68 Pulse Source Pulse Oximeter Pulse Oximetry (%) 98 Oxygen Delivery Method Room Air Intake Visit Reasons: knee pain Allergies No Known Allergies [No Known Allergies*] Allergy (Verified 11/15/23 15:07) Medication List - Last Reconciled 11/15/23 by Jose Manuel Saleh MD acetaminophen 500 mg PO Q6H PRN 90 days atenolol 100 mg PO DAILY 90 days cholecalciferol (vitamin D3) 25 mcg PO DAILY 90 days losartan-hydrochlorothiazide 100-25 mg 1 tab PO DAILY multivitamin 1 cap PO DAILY pantoprazole 40 mg PO BEDTIME Tobacco use date assessed: 11/15/23 Dental Screening Dental Screen Date: 11/15/23 Did you have a dental visit in the last 12 months?: No Did you have a dental problem in the last 6 months where you did not have access to dental care?: No Was dental information given to patient?: No HPI knee pain HPI Details Patient is 58-year-old female who was last seen January of last year then missed her follow-up appointment as she was traveling internationally Blood pressure is 156/90, patient is on atenolol 100 mg and losartan hydrochlorothiazide 100-25 mg She also suffers from anxiety and is taking no medication for that, I have sent Lexapro 10 mg patient is to start taking that 1 daily She is complaining of bilateral knee pain, patient have osteoarthritis, she already have appointment with orthopedic coming up for cortisone injection LFT: Mild elevation, need to be monitored Patient says that she went for pilgr[place] so they reveal and over there she fell on her back She is complaining of pain which initially started in lumbar area and now also located at thoracic area Some days are worse than other. Pain is nonradiating to lower extremity. BMI is elevated need to lose weight Patient is having cataract surgery January 10 and need a preop appointment before that. [facility] Medical History Microcytic anemia Normal colonoscopy Low hematocrit Dyspepsia Anxiety, generalized Hypertension, essential Surgical History Hx of colonoscopy (~10/2014) Family History Father Heart attack Mother Hepatitis C HTN (hypertension) Social History Household Members Other:: . 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 1. Little interest or pleasure in doing things: not at all 2. Feeling down, depressed, or hopeless: not at all 3. Trouble falling or staying asleep, or sleeping too much: not at all 4. Feeling tired or having little energy: several days 5. Poor appetite or overeating: not at all 6. Feeling bad about yourself - or that you are a failure or have let yourself or your family down: not at all 7. Trouble concentrating on things, such as reading the newspaper or watching television: not at all 8. Moving or speaking so slowly that other people could have noticed. Or the opposite - being so fidgety or restless that you have been moving around a lot more than usual: not at all 9. Thoughts that you would be better off or of hurting yourself in some way: not at all Total score: 1 Depression Screening Interpretation: Negative Depression Screening Done: Yes 18361 - PHQ-9 Billing: Yes Source: Developed by Drs. Lio Ogden, Mildred Paez, Gen Butler and colleagues, with an educational radha from [employer]. Thrive Questionnaire Date Thrive assessed: 12/23/21 AUDIT C Alcohol Use Questionnaire (AUDIT-C) 1. How often do you have a drink containing alcohol?: Never 3. How often do you have six or more drinks on one occasion?: Never Total Score: 0 Score Reviewed/Action Taken: Yes Review of Systems Const Denies chills and Denies fever(s) ENT Denies epistaxis and Denies nasal discharge Card Denies chest pain Resp Denies chest congestion, Denies cough and Denies hemoptysis GI Denies diarrhea and Denies nausea Skin/Breast Denies rash Neuro Reports no additional complaints Psych Reports no additional complaints Endo Reports no additional complaints Physical exam (Primary Care) Vital Signs: Last Vital Signs Pulse 68 11/15/23 15:03 BP 156/90 H 11/15/23 15:03 Pulse Ox 98 11/15/23 15:03 Oxygen Delivery Method Room Air 11/15/23 15:03 BMI result Body Mass Index 28.9 Tobacco/Smoking Status: Tobacco use Status Tobacco use date assessed 11/15/23 11/15/23 15:07 Patient Tobacco Use Status Never used Tobacco 11/15/23 15:07 e-Cigarette/Vaping Use Never Used 11/15/23 15:07 Depression Screening Interpretation: Negative Thrive Assessment: Date of Thrive Assessment Date Thrive assessed 12/23/21 11/15/23 15:07 Const General: cooperative, comfortable and no acute distress Orientation/consciousness: patient oriented x3 HENMT Head: Yes normocephalic Eyes General: appearance normal, both eyes and all related structures Neck Neck: Yes supple Resp Effort & Inspection: normal respiratory effort, no cough and no stridor Cardio Rhythm: regular rhythm Heart sounds: S1 normal heart sound present and S2 normal heart sound present Skin General skin exam: turgor normal Neuro General: patient oriented x3, tone normal and moves all extremities Extrem Right lower extremity: no edema Left lower extremity: no edema Assessment and Plan Assessment & Plan (1) Uncontrolled hypertension: Code(s): I10 - Essential (primary) hypertension (2) Anxiety, generalized: Comment: continue medications Code(s): F41.1 - Generalized anxiety disorder (3) Dyspepsia: Comment: continue medications Code(s): R10.13 - Epigastric pain (4) Low hematocrit: Code(s): D64.9 - Anemia, unspecified (5) GERD (gastroesophageal reflux disease): Code(s): K21.9 - Gastro-esophageal reflux disease without esophagitis Qualifiers: Esophagitis presence: without esophagitis Qualified Code(s): K21.9 - Gastro-esophageal reflux disease without esophagitis (6) Chronic constipation: Code(s): K59.09 - Other constipation (7) Fall: Code(s): W19.XXXA - Unspecified fall, initial encounter Qualifiers: Encounter type: initial encounter Qualified Code(s): W19.XXXA - Unspecified fall, initial encounter (8) Thoracic back pain: Code(s): M54.6 - Pain in thoracic spine Qualifiers: Chronicity: chronic Back pain laterality: bilateral Qualified Code(s): M54.6 - Pain in thoracic spine; G89.29 - Other chronic pain (9) Lumbar pain: Code(s): M54.50 - Low back pain, unspecified Plan atient is 58-year-old female who was last seen January of last year then missed her follow-up appointment as she was traveling internationally Blood pressure is 156/90, patient is on atenolol 100 mg and losartan hydrochlorothiazide 100-25 mg She also suffers from anxiety and is taking no medication for that, I have sent Lexapro 10 mg patient is to start taking that 1 daily She is complaining of bilateral knee pain, patient have osteoarthritis, she already have appointment with orthopedic coming up for cortisone injection LFT: Mild elevation, need to be monitored Patient says that she went for pilgrimage so they reveal and over there she fell on her back She is complaining of pain which initially started in lumbar area and now also located at thoracic area Some days are worse than other. Pain is nonradiating to lower extremity. BMI is elevated need to lose weight Patient is having cataract surgery January 10 and need a preop appointment before that. Orders: Orders Complete Blood Count Auto Diff Today D64.9 - Anemia, unspecified, F41.1 - Generalized anxiety disorder, I10 - Essential (primary) hypertension, K21.9 - Gastro-esophageal reflux disease without esophagitis, K59.09 - Other constipation, R10.13 - Epigastric pain Comprehensive Met. Panel Today D64.9 - Anemia, unspecified, F41.1 - Generalized anxiety disorder, I10 - Essential (primary) hypertension, K21.9 - Gastro- esophageal reflux disease without esophagitis, K59.09 - Other constipation, R10.13 - Epigastric pain Hepatitis A,B,C Profile Today D64.9 - Anemia, unspecified, F41.1 - Generalized anxiety disorder, I10 - Essential (primary) hypertension, K21.9 - Gastro- esophageal reflux disease without esophagitis, K59.09 - Other constipation, R10.13 - Epigastric pain LDL Cholesterol Direct Today D64.9 - Anemia, unspecified, F41.1 - Generalized anxiety disorder, I10 - Essential (primary) hypertension, K21.9 - Gastro- esophageal reflux disease without esophagitis, K59.09 - Other constipation, R10.13 - Epigastric pain XR lumbar spine 2-3V Today M54.50 - Low back pain, unspecified, M54.6 - Pain in thoracic spine, W19.XXXA - Unspecified fall, initial encounter XR thoracic spine 2V Today M54.50 - Low back pain, unspecified, M54.6 - Pain in thoracic spine, W19.XXXA - Unspecified fall, initial encounter TSH reflex Free T4 Today D64.9 - Anemia, unspecified, F41.1 - Generalized anxiety disorder, I10 - Essential (primary) hypertension, K21.9 - Gastro- esophageal reflux disease without esophagitis, K59.09 - Other constipation, R10.13 - Epigastric pain Vitamin B12 Today D64.9 - Anemia, unspecified, F41.1 - Generalized anxiety disorder, I10 - Essential (primary) hypertension, K21.9 - Gastro-esophageal reflux disease without esophagitis, K59.09 - Other constipation, R10.13 - Epigastric pain Vitamin D 25-OH (D2 and D3) Today D64.9 - Anemia, unspecified, F41.1 - Genera lized anxiety disorder, I10 - Essential (primary) hypertension, K21.9 - Gastro- esophageal reflux disease without esophagitis, K59.09 - Other constipation, R10.13 - Epigastric pain Medications: New escitalopram oxalate (Lexapro) 10 mg PO DAILY 90 tabs 0RF Anxiety Coding Level of Care Code Est Pt Level 4 (21581) Complex EM visit Add On G2211 Diagnoses Uncontrolled hypertension I10 Anxiety, generalized F41.1 Dyspepsia R10.13 Low hematocrit D64.9 Gastroesophageal reflux disease without esophagitis K21.9 Esophagitis presence: without esophagitis Chronic constipation K59.09 Fall, initial encounter W19.XXXA Encounter type: initial encounter Chronic bilateral thoracic back pain M54.6; G89.29 Chronicity: chronic Back pain laterality: bilateral Lumbar pain M54.50
[2023-11-15 15:03] VITALS: BP 156/90; PULSE 68; O2SAT 98; BMI 28.9
== END 2023-11-15 15:39 | disposition home or self-care (01) ==
PROVIDERS: PCP Internal Medicine; Visit Provider Internal Medicine
DX: I10 Essential (primary) hypertension (principal); F41.1 Generalized anxiety disorder; R10.13 Epigastric pain; D64.9 Anemia, unspecified; K21.9 Gastro-esophageal reflux disease without esophagitis; K59.09 Other constipation; W19.XXXA Unspecified fall, initial encounter; M54.6 Pain in thoracic spine; G89.29 Other chronic pain; M54.50 Low back pain, unspecified
CPT/HCPCS: 99214; G2211

== ENCOUNTER 2023-11-18 11:29 | Outpatient (REF) | payer OTHER, SELFPAY ==
--- NOTE | ~2023-11-18 | XR_ITS ---
EXAMINATION: THORACIC AND LUMBAR SPINE CLINICAL INFORMATION: Fall with pain COMPARISON: MRI of May 08, 2019 TECHNIQUE: AP and lateral views of the thoracic spine. Three-view lumbar spine. FINDINGS: Thoracic spine: The bony texture and alignment of the thoracic spine is satisfactory. No significant disc space narrowing is identified. There is some marginal spurring seen within the mid and lower thoracic spine. No acute fracture. Pedicles appear intact. No abnormal paraspinal line bulge. Lumbar spine: There are 5 nonrib bearing lumbar vertebra. No acute fractures identified. There is narrowing of the L5-S1 disc space with a grade 1 spondylolisthesis. There appear to be bilateral L5 pars defects with facet arthropathy bilaterally at L5-S1. No significant abnormality is seen L1-L4. XR/XR thoracic spine 2V IMPRESSION: No significant thoracic spine abnormality. No acute fracture within the thoracic spine. No acute fracture within the lumbar spine. Grade 1 spondylolisthesis L5-S1 with bilateral L5 pars defects and disc space narrowing.
--- NOTE | ~2023-11-18 | XR_ITS ---
EXAMINATION: THORACIC AND LUMBAR SPINE CLINICAL INFORMATION: Fall with pain COMPARISON: MRI of May 08, 2019 TECHNIQUE: AP and lateral views of the thoracic spine. Three-view lumbar spine. FINDINGS: Thoracic spine: The bony texture and alignment of the thoracic spine is satisfactory. No significant disc space narrowing is identified. There is some marginal spurring seen within the mid and lower thoracic spine. No acute fracture. Pedicles appear intact. No abnormal paraspinal line bulge. Lumbar spine: There are 5 nonrib bearing lumbar vertebra. No acute fractures identified. There is narrowing of the L5-S1 disc space with a grade 1 spondylolisthesis. There appear to be bilateral L5 pars defects with facet arthropathy bilaterally at L5-S1. No significant abnormality is seen L1-L4. XR/XR lumbar spine 2-3V IMPRESSION: No significant thoracic spine abnormality. No acute fracture within the thoracic spine. No acute fracture within the lumbar spine. Grade 1 spondylolisthesis L5-S1 with bilateral L5 pars defects and disc space narrowing.
[2023-11-18 13:14] LABS: MANUAL DIFF FLAG NO
[2023-11-18 13:30] LABS: Basophils Absolute Auto 0.1 X10*3/uL (0.0-0.2); Basophils Percent Auto 0.9 % (0-2); Eosinophils Absolute Auto 0.3 X10*3/uL (0.0-0.4); Hematocrit 45.5 % (37.0-47.0); Hemoglobin 14.7 g/dl (12.0-16.0); Imm Gran Abs Auto 0.02 X10*3/uL (0.00-0.03); Imm Gran Pct Auto 0.3 % (0.0-0.4); Lymphocytes Absolute Auto 2.5 X10*3/uL (1.2-4.9); Lymphocytes Percent Auto 38.8 % (20-40); Mean Corpuscular HGB Conc 32.3 g/dl (31.0-35.0); Mean Corpuscular Volume 80.4 fL (80.0-98.0); Mean Platelet Volume 11.5 fL (9.4-12.3); Monocytes Absolute Auto 0.5 X10*3/uL (0.1-1.2); Monocytes Percent Auto 6.9 % (2-11); Neutrophils Absolute Auto 3.2 x10*3/uL (2.0-8.3); Neutrophils Percent Auto 49.1 % (45-73); Platelet Count 278 X10*3/uL (160-400); Red Blood Count 5.66 X10*6/uL (4.20-5.50); Red Cell Distribution Width 14.3 % (11.0-16.0); White Blood Count 6.5 X10*3/uL (4.8-10.8)
[2023-11-18 13:45] LABS: Alanine Aminotransferase 73 U/L (0-31); Albumin Level 3.6 g/dL (3.5-5.0); Alkaline Phosphatase 111 U/L (39-117); Anion Gap 12 (12-20); Aspartate Amino Transferase 78 U/L (5-31); Bilirubin Total 0.6 mg/dL (0.0-1.0); Blood Urea Nitrogen 14 mg/dL (9-16); Calcium 9.5 mg/dL (8.4-10.2); Carbon Dioxide 23 mmol/L (22-29); Chloride 109 mmol/L (96-108); Estimated Glomerular Filt Rate > 60; Glucose Random 105 mg/dL (60-115); Sodium 140 mmol/L (135-145); Total Protein 7.7 g/dL (6.5-8.0)
[2023-11-18 14:03] LABS: TSH reflex Free T4 1.51 uIU/mL (0.32-4.0)
[2023-11-18 14:30] LABS: Vitamin B12 570 pg/mL (200-900)
[2023-11-19 05:08] LABS: HBS Num1 212.17 mIU/mL (0-7.99); HBc Num1 2.07 S/CO (0.00-0.79); HBsAGNum1 0.37 S/CO (0.00-0.99); Hepatitis A Antibody IgM 0.19 Index (0-0.79); Hepatitis B Surface Antigen Negative (Negative); ~HepC Num1 11.26 S/CO (0.00-0.79); ~Hepatitis A Antibody IgM Nonreactive (Nonreactive); ~Hepatitis B Surface Antibody REACTIVE (Nonreactive); ~Hepatitis C Antibody Reactive (Nonreactive)
[2023-11-19 05:47] LABS: HBc Num2 2.17 S/CO; HBc Num3 2.26 S/CO; Hepatitis B Core Antibody Reactive (Nonreactive)
[2023-11-19 11:09] LABS: LDL Cholesterol Direct 84 mg/dL (<100)
[2023-11-22 16:48] LABS: Vitamin D 25-OH, D2 <4 ng/mL; Vitamin D 25-OH, D3 49 ng/mL; Vitamin D 25-OH, Total 49 ng/mL (30-100)
== END 2023-11-18 11:30 | disposition home or self-care (01) ==
LOC: HO.HMGCX 11:29
PROVIDERS: PCP Internal Medicine; Visit Provider Internal Medicine
DX: M54.50 Low back pain, unspecified (principal); M54.6 Pain in thoracic spine; W19.XXXA Unspecified fall, initial encounter; I10 Essential (primary) hypertension; F41.1 Generalized anxiety disorder; R10.13 Epigastric pain; D64.9 Anemia, unspecified; K21.9 Gastro-esophageal reflux disease without esophagitis; K59.09 Other constipation
CPT/HCPCS: 36415; 72070; 72100; 80053; 82306; 82607; 83721; 84443; 85025; 86704; 86706; 86709; 86803; 87340

== ENCOUNTER 2023-11-29 11:14 | Outpatient (AMB) | payer OTHER, SELFPAY ==
[2023-11-29 11:18] VITALS: BP 146/84; PULSE 68; O2SAT 97; BMI 29.4
--- NOTE | 2023-11-29 11:18 | A.OFFPC_ITS ---
Vital Signs 11/29/23 11:18 Height 5 ft 3 in Weight 166 lb BMI 29.4 BP 146/84 H Blood Pressure Location Rt brachial Position Sitting Pulse 68 Pulse Source Pulse Oximeter Pulse Oximetry (%) 97 Oxygen Delivery Method Room Air Intake Visit Reasons: 9m month fu Allergies No Known Allergies [No Known Allergies*] Allergy (Verified 11/29/23 11:21) Medication List - Last Reconciled 11/29/23 by Jose Manuel Saleh MD acetaminophen 500 mg PO Q6H PRN 90 days atenolol 100 mg PO DAILY 90 days cholecalciferol (vitamin D3) 25 mcg PO DAILY 90 days escitalopram oxalate (Lexapro) 10 mg PO DAILY losartan-hydrochlorothiazide 100-25 mg 1 tab PO DAILY multivitamin 1 cap PO DAILY pantoprazole 40 mg PO BEDTIME Tobacco use date assessed: 11/29/23 Dental Screening Dental Screen Date: 11/29/23 Did you have a dental visit in the last 12 months?: Yes Did you have a dental problem in the last 6 months where you did not have access to dental care?: No Was dental information given to patient?: Patient has dentist HPI 9m month fu HPI Details Patient is 58-year-old female today for follow-up appointment blood p ressure Blood pressure has 146/84, she patient is on atenolol 100 mg and losartan hydrochlorothiazide 100-25 mg Mood is stable with Lexapro 10 mg she is to continue that 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 Labs done recently reviewed, she is no longer anemic Kidney functions are intact Liver enzymes are stable Patient is stable for cataract surgery [facility] Medical History Microcytic anemia Normal colonoscopy Low hematocrit Dyspepsia Anxiety, generalized Hypertension, essential Surgical History Hx of colonoscopy (~10/2014) Family History Father Heart attack Mother Hepatitis C HTN (hypertension) Social History Household Members Other:: . 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 How often do you have a drink containing alcohol?: Never 3. How often do you have six or more drinks on one occasion?: Never Total Score: 0 Score Reviewed/Action Taken: Yes Review of Systems Const Denies chills and Denies fever(s) ENT Denies epistaxis and Denies nasal discharge Card Denies chest pain Resp Denies chest congestion, Denies cough and Denies hemoptysis GI Denies diarrhea and Denies nausea Skin/Breast Denies rash Neuro Reports no additional complaints Psych Reports no additional complaints Endo Reports no additional complaints Physical exam (Primary Care) Vital Signs: Last Vital Signs Pulse 68 11/29/23 11:18 BP 146/84 H 11/29/23 11:18 Pulse Ox 97 11/29/23 11:18 Oxygen Delivery Method Room Air 11/29/23 11:18 BMI result Body Mass Index 29.4 Tobacco/Smoking Status: Tobacco use Status Tobacco use date assessed 11/29/23 11/29/23 11:21 Patient Tobacco Use Status Never used Tobacco 11/29/23 11:21 e-Cigarette/Vaping Use Never Used 11/29/23 11:21 Thrive Assessment: Date of Thrive Assessment Date Thrive assessed 12/23/21 11/29/23 11:21 Const General: cooperative, comfortable and no acute distress Orientation/consciousness: patient oriented x3 HENMT Head: Yes normocephalic Eyes General: appearance normal, both eyes and all related structures Neck Neck: Yes supple Resp Effort & Inspection: normal respiratory effort, no cough and no stridor Cardio Rhythm: regular rhythm Heart sounds: S1 normal heart sound present and S2 normal heart sound present Skin General skin exam: turgor normal Neuro General: patient oriented x3, tone normal and moves all extremities Extrem Right lower extremity: no edema Left lower extremity: no edema Assessment and Plan Assessment & Plan (1) Hypertension, essential: Comment: continue medications Code(s): I10 - Essential (primary) hypertension (2) Anxiety, generalized: Comment: continue medications Code(s): F41.1 - Generalized anxiety disorder (3) Dyspepsia: Comment: continue medications Code(s): R10.13 - Epigastric pain (4) GERD (gastroesophageal reflux disease): Code(s): K21.9 - Gastro-esophageal reflux disease without esophagitis Qualifiers: Esophagitis presence: without esophagitis Qualified Code(s): K21.9 - Gastro-esophageal reflux disease without esophagitis (5) Chronic constipation: Code(s): K59.09 - Other constipation (6) Lumbar pain: Code(s): M54.50 - Low back pain, unspecified Plan Patient is 58-year-old female today for follow-up appointment blood pressure Blood pressure has 146/84, she patient is on atenolol 100 mg and losartan hydrochlorothiazide 100-25 mg Mood is stable with Lexapro 10 mg she is to continue that 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 Labs done recently reviewed, she is no longer anemic Kidney functions are intact Liver enzymes are stable Patient is stable for cataract surgery Orders: Orders Hepatitis A,B,C Profile Today I10 - Essential (primary) hypertension, R79.89 - Other specified abnormal findings of blood chemistry Comprehensive Met. Panel Today I10 - Essential (primary) hypertension, R79.89 - Other specified abnormal findings of blood chemistry Coding Level of Care Code Est Pt Level 4 (07238) Complex EM visit Add On G2211 Diagnoses Hypertension, essential I10 Anxiety, generalized F41.1 Dyspepsia R10.13 Gastroesophageal reflux disease without esophagitis K21.9 Esophagitis presence: without esophagitis Chronic constipation K59.09 Lumbar pain M54.50
== END 2023-11-29 12:42 | disposition home or self-care (01) ==
PROVIDERS: PCP Internal Medicine; Visit Provider Internal Medicine
DX: I10 Essential (primary) hypertension (principal); F41.1 Generalized anxiety disorder; R10.13 Epigastric pain; K21.9 Gastro-esophageal reflux disease without esophagitis; K59.09 Other constipation; M54.50 Low back pain, unspecified
CPT/HCPCS: 99214; G2211

== ENCOUNTER 2023-12-06 13:42 | Outpatient (AMB) | payer OTHER, SELFPAY ==
--- NOTE | 2023-12-06 13:43 | MHC.OFFVIS ---
Vital Signs 12/06/23 13:43 Height 5 ft 3 in Intake Visit Reasons: B/L knee OA, last inj 09/02/2023 Intake Note: Jyoti is a 58 year old female who presents today for a follow up for her bilateral knee OA, last inj 09/02/23. Patient reports her last injection gave her a week of relief. Patient and her son wants to talk to Adelina before she repeats her injections. Allergies No Known Allergies [No Known Allergies*] Allergy (Verified 12/06/23 13:52) HPI HPI B/L knee OA, last inj 09/02/2023: Details: 58-year-old female, who is Georgian speaking, presents in the office today for a follow up of bilateral knee pain. I last saw the patient in the office on 09/02/2023 when she received cortisone injections in the bilateral knees. While in the office today the patient reports the injection gave her about a week of relief. Patient is accompanied in the office today by her son. [facility] Medical History Microcytic anemia Normal colonoscopy Low hematocrit Dyspepsia Anxiety, generalized Hypertension, essential Surgical History Hx of colonoscopy (~10/2014) Family History Father Heart attack Mother Hepatitis C HTN (hypertension) Social History Household Members Other:: . 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 Crepitus felt with range of motion. Tenderness to palpation medial and lateral joint lines bilaterally which is mild. Negative Kari. Negative anterior drawer. NVI. Office Procedures Joint Injection/Drain Joint Injection/Drain Primary Site: right knee Secondary Site: left knee Prep: site was prepped using aseptic technique, ethochloride spray was applied and injection warnings given Injected: 80 mg of, DepoMedrol, with 8 mL of (2% plain lido ) and in the joint Approach Used: anterolateral Procedure: The patient tolerated the procedure well, but had some pain with the injection and there was some relief with the local anesthesia Coding - Large joint Procedure code (CPT) selection complete Assessment & Plan Assessment & Plan (1) Knee pain, bilateral: Code(s): M25.561 - Pain in right knee; M25.562 - Pain in left knee Category: Medical (2) Osteoarthritis of knees, bilateral: Code(s): M17.0 - Bilateral primary osteoarthritis of knee Category: Medical Plan: ? Plan 58-year-old female, who is Georgian speaking, presents in the office today for a follow up of bilateral knee pain. I last saw the patient in the office on 09/02/2023 when she received cortisone injections in the bilateral knees. ? While in the office today the patient reports the injection gave her about a week of relief.? Patient is accompanied in the office today by her son.? The patient was offered a cortisone injection in the bilateral knees with 80 mg of DepoMedrol. The patient was explained the risk, benefits, and alternatives to receiving this injection. After receiving consent for the injection, the patient had the procedure done while in the office today. The patient tolerated the procedure well with no complications.?? We will petition the insurance for gel injections. Follow-up will be after insurance approval, or sooner if needed. Patient Instructions: Scribed by Anastasia Zeng medical anthropology director, for Adelina Martins PA-C on 12/06/2023 at 1:45 pm, EST. Coding Level of Care Code Est Pt Level 3 (52469) Diagnoses Knee pain, bilateral M25.561; M25.562 Osteoarthritis of knees, bilateral M17.0 CPT Codes Coding - Large joint: 88257 - Large joint ([id number])
== END 2023-12-06 14:07 | disposition home or self-care (01) ==
PROVIDERS: PCP Internal Medicine; Visit Provider Physician Assistant
DX: M17.0 Bilateral primary osteoarthritis of knee (principal)
CPT/HCPCS: 20610; 99213

== ENCOUNTER → 2023-12-06 13:42 | Outpatient (BNVA) | payer OTHER, SELFPAY | PROVIDERS: PCP Internal Medicine; Visit Provider Physician Assistant | DX: M17.0 Bilateral primary osteoarthritis of knee (principal); M25.561 Pain in right knee; M25.562 Pain in left knee | CPT/HCPCS: 20610; 99212; J1010 ==

== ENCOUNTER 2024-01-05 13:06 | Outpatient (AMB) | payer OTHER, SELFPAY ==
--- NOTE | 2024-01-05 13:08 | MHC.OFFVIS ---
Vital Signs 01/05/24 13:20 Height 5 ft 4 in Weight 163 lb 2.273 oz BMI 28.0 Intake Visit Reasons: [employer] [place] low back pain Intake Note: Jyoti is a 58 year old female who presents to the office today with her son for a new patient visit for Bilateral lower back pain. Referral provider unknown. Lumbar/thoracic spine X-ray done 11/18/23. Patient states she has been having sharp pain that have been consistent for 4-5 months. She expresses occasional stiffness in the lower back that causes discomfort and pain when she has to bend forward. There is pain with ambulation, walking, prolonged sitting and lying on back. She has numbness and tingling that comes on and off and radiates down her back into her buttock. Tylenol gives her relief. Denies recent injury. She has cataract surgery 01/11/24 and would like to know if she is okay to proceed with this. Allergies No Known Allergies [No Known Allergies*] Allergy (Verified 01/05/24 13:21) Medication List - Last Reconciled 01/05/24 by Josette Nevarez MD acetaminophen 500 mg PO Q6H PRN 90 days atenolol 100 mg PO DAILY 90 days cholecalciferol (vitamin D3) 25 mcg PO DAILY 90 days escitalopram oxalate (Lexapro) 10 mg PO DAILY losartan-hydrochlorothiazide 100-25 mg 1 tab PO DAILY multivitamin 1 cap PO DAILY pantoprazole 40 mg PO BEDTIME HPI Comments Details: Here with son. Back pain only 6 months. [place], impacting right side. Pain in lower back, goes both legs, back to thights/buttocks Not to feet. Numbness/tingling in same distribution, not on feet, which only started last week. Pain worst with bending forward. No PT yet. [facility] Medical History Microcytic anemia Normal colonoscopy Low hematocrit Dyspepsia Anxiety, generalized Hypertension, essential Surgical History Hx of colonoscopy (~10/2014) Family History Father Heart attack Mother Hepatitis C HTN (hypertension) Social History Household Members Other:: . 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 Patient was appropriately conversant and oriented. Good historian. MSK: No specific abnormalities found on inspection of the spine and all extremities. Most of the tenderness is midline lumbar lower levels. But she is also slightly tender on lumbar paraspinals, SI joints, GT. Lumbar ROM was full. Bilateral hip, knee and ankle ROM WNL. No ligamentous laxity or crepitance. No increased effusion. Straight-leg raising test negative. FABERE test negative. Strength is 5/5 in all muscle groups tested. No increased tone noted. Neurological: Neurologic examination of the upper and lower extremities was nonfocal with intact sensation, muscle stretch reflexes and without focal motor deficits . Reilly?s negative bilaterally. Babinski was down going bilaterally. Clonus was negative. Gait is non-antalgic without loss of balance. Results Reviewed Results Reviewed: I independently reviewed the results of the following: [ ] I reviewed records from the following: [ ] Assessment & Plan Assessment & Plan (1) Acquired spondylolisthesis of lumbosacral region: Code(s): M43.17 - Spondylolisthesis, lumbosacral region Category: Medical (2) Lumbar spondylolysis: Code(s): M43.06 - Spondylolysis, lumbar region Category: Medical (3) Trochanteric bursitis of both hips: Code(s): M70.61 - Trochanteric bursitis, right hip; M70.62 - Trochanteric bursitis, left hip Category: Medical Plan Lumbar x-rays read as having bilateral L5 spondylolysis and grade 1 spondylolisthesis. Most likely from fall 6 months ago as patient denies any back pain prior. She does not have any red flags now. She also has some tenderness over bilateral greater trochanter and describes this as being swollen. We will refer to physical therapy for now, work on both lumbar and trochanters. If not improved at follow-up, we may consider trochanteric injections versus obtaining further lumbar imaging. Assessment and plan discussed with patient, and patient was agreeable. All questions were answered thoroughly. Follow up in 2 months. Josette Nevarez MD, RUTH Board Certified, [place] [employer] and [employer] (ABPMR) Board Certified, [place] [employer] (ABEM) Orders: Orders PT Evaluation and Treatment Today M43.06 - Spondylolysis, lumbar region, M43.17 - Spondylolisthesis, lumbosacral region, M70.61 - Trochanteric bursitis, right hip, M70.62 - Trochanteric bursitis, left hip Coding Level of Care Code New Pt Level 4 (58309) Diagnoses Acquired spondylolisthesis of lumbosacral region M43.17 Lumbar spondylolysis M43.06 Trochanteric bursitis of both hips M70.61; M70.62
[2024-01-05 13:20] VITALS: BMI 28.0
== END 2024-01-05 13:40 | disposition home or self-care (01) ==
PROVIDERS: PCP Internal Medicine; Visit Provider Physical Medicine & Rehabilitation
DX: M43.17 Spondylolisthesis, lumbosacral region (principal); M43.06 Spondylolysis, lumbar region; M70.61 Trochanteric bursitis, right hip; M70.62 Trochanteric bursitis, left hip
CPT/HCPCS: 99203

== ENCOUNTER → 2024-01-05 13:06 | Outpatient (BNVA) | payer OTHER, SELFPAY | PROVIDERS: PCP Internal Medicine; Visit Provider Physical Medicine & Rehabilitation | DX: M43.17 Spondylolisthesis, lumbosacral region (principal); M43.06 Spondylolysis, lumbar region; M70.61 Trochanteric bursitis, right hip; M70.62 Trochanteric bursitis, left hip | CPT/HCPCS: 99202 ==

== ENCOUNTER 2024-01-06 13:18 | Outpatient (AMB) | payer OTHER, SELFPAY ==
[2024-01-06 13:22] VITALS: BP 180/100; PULSE 73; O2SAT 96; BMI 28.7
--- NOTE | 2024-01-06 13:22 | MHC.PC.OV ---
Vital Signs 01/06/24 13:22 01/06/24 14:40 Height 5 ft 4 in Weight 167 lb 8 oz BMI 28.7 BP 180/100 H 150/89 H Blood Pressure Location Lt brachial Pulse 73 Pulse Source Pulse Oximeter Pulse Oximetry (%) 96 Oxygen Delivery Method Room Air Intake Visit Reasons: Preop/ surgery 01/10 Allergies No Known Allergies [No Known Allergies*] Allergy (Verified 01/06/24 13:24) Medication List - Last Reconciled 01/06/24 by Jose Manuel Saleh MD acetaminophen 500 mg PO Q6H PRN 90 days atenolol 100 mg PO DAILY 90 days cholecalciferol (vitamin D3) 25 mcg PO DAILY 90 days escitalopram oxalate (Lexapro) 10 mg PO DAILY losartan-hydrochlorothiazide 100-25 mg 1 tab PO DAILY multivitamin 1 cap PO DAILY pantoprazole 40 mg PO BEDTIME Tobacco use date assessed: 01/06/24 Dental Screening Dental Screen Date: 01/06/24 Did you have a dental visit in the last 12 months?: No Did you have a dental problem in the last 6 months where you did not have access to dental care?: No Was dental information given to patient?: No HPI Preop/ surgery 01/10 HPI Details Patient is 58-year-old female who is going in for cataract surgery by Dr. 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, taking Tylenol as needed LFT: Mild elevation, need to be monitored , I will add hepatitis profile with next set of labs Lumbar pain is better, x-ray shows L5-S1 vertebral height narrowing, will address that if pain got intense or constant BMI is elevated need to lose weight Labs done recently reviewed, she is no longer anemic Kidney functions are intact Liver enzymes are stable, continued to be slightly elevated Patient is stable for cataract surgery [facility] Medical History Microcytic anemia Normal colonoscopy Low hematocrit Dyspepsia Anxiety, generalized Hypertension, essential Surgical History Hx of colonoscopy (~10/2014) Family History Father Heart attack Mother Hepatitis C HTN (hypertension) Social History Household Members Other:: . 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 How often do you have a drink containing alcohol?: Never 3. How often do you have six or more drinks on one occasion?: Never Total Score: 0 Score Reviewed/Action Taken: Yes Review of Systems Const Denies chills and Denies fever(s) ENT Denies epistaxis and Denies nasal discharge Card Denies chest pain Resp Denies chest congestion, Denies cough and Denies hemoptysis GI Denies diarrhea and Denies nausea Skin/Breast Denies rash Neuro Reports no additional complaints Psych Reports no additional complaints Endo Reports no additional complaints Physical exam (Primary Care) Vital Signs: Last Vital Signs Pulse 73 01/06/24 13:22 BP 180/100 H 01/06/24 13:22 Pulse Ox 96 01/06/24 13:22 Oxygen Delivery Method Room Air 01/06/24 13:22 BMI result Body Mass Index 28.7 Tobacco/Smoking Status: Tobacco use Status Tobacco use date assessed 01/06/24 01/06/24 13:25 Patient Tobacco Use Status Never used Tobacco 01/06/24 13:25 e-Cigarette/Vaping Use Never Used 01/06/24 13:25 Thrive Assessment: Date of Thrive Assessment Date Thrive assessed 12/23/21 01/06/24 13:25 Const General: cooperative, comfortable and no acute distress Orientation/consciousness: patient oriented x3 HENMT Head: Yes normocephalic Eyes General: appearance normal, both eyes and all related structures Neck Neck: Yes supple Resp Effort & Inspection: normal respiratory effort, no cough and no stridor Cardio Rhythm: regular rhythm Heart sounds: S1 normal heart sound present and S2 normal heart sound present Skin General skin exam: turgor normal Neuro General: patient oriented x3, tone normal and moves all extremities Extrem Right lower extremity: no edema Left lower extremity: no edema Assessment and Plan Assessment & Plan (1) Pre-op evaluation: Code(s): Z01.818 - Encounter for other preprocedural examination (2) Cataract: Code(s): H26.9 - Unspecified cataract Qualifiers: Cataract type: other Laterality: unspecified laterality Qualified Code(s): H26.8 - Other specified cataract (3) Hypertension, essential: Comment: continue medications Code(s): I10 - Essential (primary) hypertension (4) Anxiety, generalized: Comment: continue medications Code(s): F41.1 - Generalized anxiety disorder (5) Dyspepsia: Comment: continue medications Code(s): R10.13 - Epigastric pain (6) GERD (gastroesophageal reflux disease): Code(s): K21.9 - Gastro-esophageal reflux disease without esophagitis Qualifiers: Esophagitis presence: without esophagitis Qualified Code(s): K21.9 - Gastro-esophageal reflux disease without esophagitis (7) LFT elevation: Code(s): R79.89 - Other specified abnormal findings of blood chemistry (8) White coat syndrome with hypertension: Code(s): I10 - Essential (primary) hypertension Plan Patient is 58-year-old female who is going in for cataract surgery by Dr. 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, taking Tylenol as needed LFT: Mild elevation, need to be monitored , I will add hepatitis profile with next set of labs Lumbar pain is better, x-ray shows L5-S1 vertebral height narrowing, will address that if pain got intense or constant BMI is elevated need to lose weight Labs done recently reviewed, she is no longer anemic Kidney functions are intact Liver enzymes are stable, continued to be slightly elevated Patient is stable for cataract surgery Orders: Orders Lipid Panel 2 Months F41.1 - Generalized anxiety disorder, I10 - Essential (primary) hypertension, K21.9 - Gastro-esophageal reflux disease without esophagitis, R10.13 - Epigastric pain, R79.89 - Other specified abnormal findings of blood chemistry Hepatitis A,B,C Profile 2 Months F41.1 - Generalized anxiety disorder, I10 - Essential (primary) hypertension, K21.9 - Gastro-esophageal reflux disease without esophagitis, R10.13 - Epigastric pain, R79.89 - Other specified abnormal findings of blood chemistry Complete Blood Count Auto Diff 2 Months F41.1 - Generalized anxiety disorder, I10 - Essential (primary) hypertension, K21.9 - Gastro-esophageal reflux disease without esophagitis, R10.13 - Epigastric pain, R79.89 - Other specified abnormal findings of blood chemistry Comprehensive [place]. Panel Fast 2 Months F41.1 - Generalized anxiety disorder, I10 - Essential (primary) hypertension, K21.9 - Gastro-esophageal reflux disease without esophagitis, R10.13 - Epigastric pain, R79.89 - Other specified abnormal findings of blood chemistry TSH reflex Free T4 2 Months F41.1 - Generalized anxiety disorder, I10 - Essential (primary) hypertension, K21.9 - Gastro-esophageal reflux disease without esophagitis, R10.13 - Epigastric pain, R79.89 - Other specified abnormal findings of blood chemistry Medications: New lorazepam One tablet the day of doctor's appointment 0.5 mg PO DAILY 90 days PRN 14 tabs 0RF anxiety Refilled escitalopram oxalate (Lexapro) 10 mg PO DAILY 90 tabs 3RF Anxiety losartan-hydrochlorothiazide 100-25 mg 1 tab PO DAILY 90 tabs 1RF atenolol 100 mg PO DAILY 90 days 90 tabs 1RF I10 - Essential (primary) hypertension pantoprazole 40 mg PO BEDTIME 90 tabs 1RF Stomach acid Discontinued acetaminophen Discontinued Reason: Doctor's Order 500 mg PO Q6H 90 days PRN 180 tabs 0RF Pain knee Coding Level of Care Code Est Pt Level 4 (56221) Complex EM visit Add On G2211 Diagnoses Pre-op evaluation Z01.818 Other cataract, unspecified laterality H26.8 Cataract type: other Laterality: unspecified laterality Hypertension, essential I10 Anxiety, generalized F41.1 Dyspepsia R10.13 Gastroesophageal reflux disease without esophagitis K21.9 Esophagitis presence: without esophagitis LFT elevation R79.89 White coat syndrome with hypertension I10
[2024-01-06 14:40] VITALS: BP 150/89
== END 2024-01-06 13:56 | disposition home or self-care (01) ==
PROVIDERS: PCP Internal Medicine; Visit Provider Internal Medicine
DX: I10 Essential (primary) hypertension (principal); Z01.818 Encounter for other preprocedural examination; H26.8 Other specified cataract; F41.1 Generalized anxiety disorder; R10.13 Epigastric pain; K21.9 Gastro-esophageal reflux disease without esophagitis; R79.89 Other specified abnormal findings of blood chemistry
CPT/HCPCS: 99214; G2211

== ENCOUNTER → 2024-02-22 13:40 | Outpatient (RCR) | payer OTHER, SELFPAY ==
[2020-05-05 13:39] VITALS: BMI 27.3
[2020-05-05 13:42] VITALS: BP 154/78; PULSE 75; RESP 18; TEMP 36.4; O2SAT 98
[2020-05-05 14:43] LABS: Baso%MD 1.3 %; Hemoglobin 12.9 g/dl (12.0-16.0); IG%MD 0.2 %; Platelet Count 307 X10*3/uL (160-400)
[2020-05-05 14:45] LABS: Eos%MD 10.6 %; Lymph%MD 39.5 %; Mean Corpuscular Hemoglobin 21.5 pg (27.0-33.0); Mean Corpuscular Volume 71.8 fL (80-98); Mono%MD 8.3 %; Neut%MD 40.1 %; Red Blood Count 5.99 X10*6/uL (4.20-5.50); Reticulocyte Percent 0.5 % (0.5-1.8); White Blood Count 6.1 X10*3/uL (4.8-10.8)
[2020-05-05 14:58] LABS: PLT ABN DIST 1
--- NOTE | 2020-05-05 15:00 | PM.HEMONCCN ---
Subjective - Subjective Chief complaint: consult for microcytic hypochromic anemia. Patient: new to practice Requesting Physician: Jose Manuel Saleh. Primary Care Provider: Jose Manuel Saleh MD Medical Summary: DIAGNOSIS: MICROCYTIC ANEMIA. HPI - Consult Narrative Reason for consult: CONSULT FOR MICROCYTIC ANEMIA. Narrative: Jyoti Beaver is a pleasant 55 year old lady, Tells me that she felt rather fatigued over a month ago. While doing her housework, she noted her legs were getting weak. even walking a few steps made her feel exhausted. She had to stop. Subsequently she noted a same thing happening to her arms. one-day she passed out. She went to her primary. labs revealed a hemoglobin of 6.2. she was advised to go to the emergency room right away. The patient was actually on her way to visit her sister in [place], so she elected to go to the ER there. There, the hemoglobin was repeated and was confirmed to be 6.2. She was there overnight. she was given a couple of units of blood and then discharged the next day. Subsequently she was placed on oral iron. She has noted her stool color to be black. She does not know if it was black previous to that since she did not pay much attention. She denies any past history of a similar episode. Denies any known family history of anemia on GI issues. She went through menopause about a year ago. She had a screening colonoscopy 11/13/2014, by Dr. Marcial which was negative except for lymphoid follicle. Review of Systems - Constitutional Reports system reviewed and no additional complaints, except as documented, Reports fatigue, Denies anorexia - Eyes Reports system reviewed and no additional complaints, except as documented - ENT Reports system reviewed and no additional complaints, except as documented - Cardiovascular Reports system reviewed and no additional complaints, except as documented - Respiratory Reports no additional respiratory complaints - Gastrointestinal Reports system reviewed and no additional complaints, except as documented, Reports belching, Reports black, tarry stools, Reports bloating, Reports bright, red blood in stools, Reports change in bowel habits, Reports excessive passing of gas - Genitourinary Reports no additional female genitourinary complaints - Integumentary/Breasts Skin/Breast: Reports no additional skin complaints - Neurologic Reports system reviewed and no additional complaints, except as documented - Psychiatric Reports system reviewed and no additional complaints, except as documented - Endocrine Reports no additional endocrine complaints - Hematologic/Lymphatic Reports system reviewed and no additional complaints, except as documented - Allergic/Immunologic Reports system reviewed and no additional complaints, except as documented [facility] Medical History: Medical History (Last Updated 05/05/20 @ 13:55 by Jenna Ann RN) Anxiety, generalized Dyspepsia Hypertension, essential Low hematocrit Normal colonoscopy Patient : No Family History: Family History (Last Updated 03/28/20 @ 12:44 by JAMES Delgadillo) Father CVD (cardiovascular disease) Mother Hepatitis C Home Medications and Allergies Home Medications Medication Instructions Recorded Confirmed Type acetaminophen 500 mg tablet 500 mg PO Q6H PRN 03/28/20 03/28/20 History atenolol 100 mg tablet 50 mg PO DAILY tab 03/28/20 History carbamide peroxide 6.5 % ear drops 5 drp OTIC (EARS) DAILY 03/28/20 03/28/20 History multivitamin 1 cap PO DAILY 03/28/20 03/28/20 History Allergies Allergy/AdvReac Type Severity Reaction Status Date / Time No Known Allergies Allergy Verified 05/05/20 13:54 [No Known Allergies*] Physical Exam Vital signs: Vital Signs Temp 97.6 F 05/05/20 13:42 Pulse 75 05/05/20 13:42 Resp 18 05/05/20 13:42 BP 154/78 H 05/05/20 13:42 Pulse Ox 98 05/05/20 13:42 Intake & Output 05/04/20 05/05/20 05/05/20 18:59 06:59 18:59 Other: Weight 70.1 kg Weight 70.1 kg - Constitutional Present: no acute distress - Routine HEENT Exam Head: Present: normal inspection ENT: Present: mucous membranes moist - Routine Neck Exam Present: supple - Routine Respiratory Exam Present: CTAB - Routine Cardiovascular Exam Cardiovascular: Present: S1, S2 - Routine Abdominal Exam Present: soft, tenderness - Routine Rectal Exam Patient deferred: digital exam - Routine Extremities Exam Present: nontender - Routine Skin Exam Present: intact - Detailed Neurological Exam: Coma Scale Eye Opening: Spontaneous (4) Verbal Response: Oriented (5) Motor Response: Obeys commands (6) Brook Coma Scale Total: 15 - Routine Psychiatric Exam Present: normal affect Hem/Onc Consult Result - Labs CBC & Chem 7: 05/05/20 14:30 05/05/20 14:30 Labs: Short CBC 05/05/20 Range/Units 14:30 WBC 6.1 (4.8-10.8) X10*3/uL Hgb 12.9 D (12.0-16.0) g/dl Hct 43.0 (37-47) % Plt Count 307 D (160-400) X10*3/uL Assessment and Plan (1) Microcytic anemia Status: Acute This is a pleasant 55-year-old lady, with onset of symptoms a couple of months ago consisting of progressive easy fatigability. She was noted to have a microcytic hypochromic anemia with a hemoglobin down to 6 range. She had a couple of units of blood at [facility], in the beginning of March. She was started on oral iron. She felt a lot better after the transfusion but now her energy level is trailing. She does have some GI complaints. occasional bright red blood per rectum. Her stool is black however that could be the oral iron. My concern is iron deficiency anemia related to occult GI bleeding. other possibility is iron malabsorption from something like celiac disease. Hemoglobin on April 09 was 10.2. DIFFERENTIAL DIAGNOSIS: Includes: 2. Thalassemia: Could cause the Microcytosis. She is from [place] where it is a common finding. PLAN: I will check her labs today. B12 509. Folate 16. Will check a type and screen, in case she needs a transfusion. Will check iron studies however they may not be reliable, given that she is on iron replacement and had blood transfusion earlier. iron studies: 68/458/15/54. Will check for celiac disease: Transglut. IgA is less than 1. Will arrange for a GI consult for EGD/colonoscopy. For now she was advised to take iron supplements along with vitamin-C. She will return in a month for a follow-up visit. Thank you, cc: Dr. Jose Manuel Saleh. Dr. Lobo Herrera. Dr. Nedra Marcial. Addendum: Hemoglobin is 12.9 today. This is reassuring. She will continue on the iron and follow up with GI. (2) Microcytic anemia Status: Acute
[2020-05-05 15:06] LABS: Alanine Aminotransferase 58 U/L (0-31); Albumin Level 3.9 g/dL (3.5-5.0); Alkaline Phosphatase 70 U/L (39-117); Anion Gap 12 (12-20); Aspartate Amino Transferase 69 U/L (5-31); Bilirubin Total 0.3 mg/dL (0.0-1.0); Blood Urea Nitrogen 13 mg/dL (9-16); Calcium 9.6 mg/dL (8.4-10.2); Carbon Dioxide 26 mmol/L (22-29); Chloride 106 mmol/L (96-108); Creatinine Clr Calc Pharmacy 79.8; Estimated Glomerular Filt Rate > 60; Glucose Random 105 mg/dL (60-115); Iron 68 mcg/dL (30-160); Percent Iron Saturation 15 % (15-50); Potassium 4.1 mmol/l (3.3-5.1); Sodium 140 mmol/L (135-145); Total Iron Binding Capacity 458 mcg/dL (228-428); Total Protein 7.4 g/dL (6.5-8.0); Unsaturated Iron Binding 390 ug/dL
[2020-05-05 15:15] LABS: Basophils Abs Manual 0.2 X10*3/uL (0.0-0.3); Basophils Percent Manual 3 % (0-1); Eosinophils Absolute Manual 0.7 X10*3/UL (0.0-0.8); Eosinophils Percent Manual 12 % (0-4); Lymphocytes Percent Manual 33 % (20-40); Monocytes Absolute Manual 0.7 X10*3/uL (0.0-1.2); Monocytes Percent Manual 11 % (2-11); Neutrophils Percent Manual 41 % (45-73)
[2020-05-05 15:16] LABS: Band Neutrophils Percent 0 % (3-5); Neutrophils Absolute Manual 2.5 X10*3/uL (2.2-7.9); Platelet Estimate NORMAL (NORMAL)
[2020-05-05 15:17] LABS: Hypochromasia 1+; Macrocytosis 1+; Microcytosis 1+; Platelet Morphology Comment NORMAL; RBC Morphology NOTED; Stomatocytes 1+; Target Cells 1+
[2020-05-05 15:18] LABS: Ovalocytes 1+; Spherocytes 1+; Tear Drop Cells 1+
[2020-05-05 15:27] LABS: Ferritin 54 ng/mL (10-250)
[2020-05-05 16:13] LABS: Vitamin B12 509 pg/mL (200-900)
--- NOTE | 2020-05-05 16:31 | MHC.HEMONC ---
Dr Marcial's office called to make follow up appt for endo/colonoscopy. Office will call patient with next available appt.
[2020-05-07 13:52] LABS: Transglutaminase IgA 1 U/mL
[2020-05-09 08:07] LABS: Hematocrit 42.6 % (35.0-45.0); Hemoglobin 12.9 g/dL (11.7-15.5); MCH 21.3 pg (27.0-33.0); MCV 70.2 fL (80.0-100.0); RBC 6.07 Million/uL (3.80-5.10)
[2020-06-05 14:46] VITALS: BMI 27.4
[2020-06-05 14:47] VITALS: BP 190/91; PULSE 61; RESP 18; TEMP 35.7; O2SAT 98
--- NOTE | 2020-06-05 14:50 | P.PNHO_ITS ---
Medical Summary - Medical Summary Date of Service: 06/05/20 Medical Summary: DIAGNOSIS: MICROCYTIC ANEMIA. Interval History Interval history: Jyoti Beaver is a pleasant 55 year old lady, here for a follow-up visit. She denies any changes in her medical history nor medications. She tells me that she is no longer fatigued nor tired. She used to have some GI complaints/dyspepsia. However since she moved into her new home which is more spatious, she is active, walking around, a GI complaints have resolved. She denies any diarrhea nor gross blood in the stools. Initially when she started the iron she was constipated however now that has resolved. She has not even taken the omeprazole for about 5 months. She was scheduled for an upper endoscopy a couple of weeks ago however she canceled that. She gets occasional pain in her arms and hip on movement. She enjoys agood appetite. She has gained weight. She is in good spirits. Rest of the review of systems is unremarkable. Previous History: She told me that she felt rather fatigued few months ago. While doing her housework, she noted her legs were getting weak. even walking a few steps made her feel exhausted. She had to stop. Subsequently she noted a same thing happening to her arms. one-day she passed out. She went to her primary. labs revealed a hemoglobin of 6.2. she was advised to go to the emergency room right away. The patient was actually on her way to visit her sister in [place], so she elected to go to the ER there. There, the hemoglobin was repeated and was confirmed to be 6.2. She was there overnight. she was given a couple of units of blood and then discharged the next day. Subsequently she was placed on oral iron. She has noted her stool color to be black. She does not know if it was black previous to that since she did not pay much attention. She had a screening colonoscopy 11/13/2014, by Dr. Marcial which was negative except for lymphoid follicle. Denies any known family history of anemia on GI issues. She went through menopause about a year ago. Review of Systems - Constitutional Denies lack of energy - Eyes Reports system reviewed and no additional complaints, except as documented - ENT Reports system reviewed and no additional complaints, except as documented - Cardiovascular Reports system reviewed and no additional complaints, except as documented, Denies chest pain at rest - Respiratory Reports no additional respiratory complaints, Denies chest congestion - Gastrointestinal Reports system reviewed and no additional complaints, except as documented, Denies abdominal pain, Denies belching, Denies black, tarry stools, Denies bloating - Genitourinary Reports no additional female genitourinary complaints - Musculoskeletal Reports joint pain - Integumentary/Breasts Skin/Breast: Reports no additional skin complaints - Neurologic Reports system reviewed and no additional complaints, except as documented - Psychiatric Reports system reviewed and no additional complaints, except as documented - Endocrine Reports no additional endocrine complaints - Hematologic/Lymphatic Reports system reviewed and no additional complaints, except as documented - Allergic/Immunologic Reports system reviewed and no additional complaints, except as documented [facility] Medical History: Medical History (Last Reviewed 05/14/20 @ 21:49 by Jose Manuel Saleh MD) Anxiety, generalized Dyspepsia Hypertension, essential Low hematocrit Microcytic anemia Normal colonoscopy Functional capacity: independent ambulation Patient : No Family History: Family History (Last Reviewed 05/14/20 @ 21:49 by Jose Manuel Saleh MD) Father Heart attack Mother Hepatitis C HTN (hypertension) Surgical History: Surgical History (Last Reviewed 05/14/20 @ 21:49 by Jose Manuel Saleh MD) Hx of colonoscopy Onset Date: ~10/2014 Home Medications and Allergies Home Medications Medication Instructions Recorded Confirmed Type acetaminophen 500 mg tablet 500 mg PO Q6H PRN 03/28/20 06/05/20 History atenolol 100 mg tablet 100 mg PO DAILY tab 03/28/20 06/05/20 History carbamide peroxide 6.5 % ear drops 5 drp OTIC (EARS) DAILY 03/28/20 06/05/20 History multivitamin 1 cap PO DAILY 03/28/20 06/05/20 History ferrous sulfate 325 mg PO BID 05/27/20 06/05/20 History Allergies Allergy/AdvReac Type Severity Reaction Status Date / Time No Known Allergies Allergy Verified 05/14/20 12:42 [No Known Allergies*] Exam Vital signs: Vital Signs Temp 96.3 F L 06/05/20 14:47 Pulse 61 06/05/20 14:47 Resp 18 06/05/20 14:47 BP 190/91 H 06/05/20 14:47 Pulse Ox 98 06/05/20 14:47 Intake & Output 06/04/20 06/05/20 06/05/20 18:59 06:59 18:59 Other: Weight 70.3 kg Weight 70.3 kg Body Mass Index 27.4 - Constitutional Present: no acute distress - Routine HEENT Exam Head: Present: normal inspection Eye: Present: normal appearance ENT: Present: mucous membranes moist - Routine Neck Exam Present: full ROM - Routine Respiratory Exam Present: CTAB - Routine Cardiovascular Exam Cardiovascular: Present: S1, S2 - Routine Abdominal Exam Present: soft, tenderness - Routine Rectal Exam Patient deferred: digital exam - Routine Extremities Exam Present: nontender - Routine Back/Spine/Pelvis Exam Back/Spine: Present: full ROM - Routine Skin Exam Present: intact - Routine Neurological Exam Present: alert, oriented X3 - Detailed Neurological Exam: Coma Scale Eye Opening: Spontaneous (4) - Routine Psychiatric Exam Present: normal affect Data - Labs CBC & Chem 7: 06/05/20 14:40 06/05/20 14:40 Labs: 05/05/20 14:30 Type and Screen Routine Complete Blood Count Man Dif Routine Comprehensive Met. Panel Routine Ferritin Routine IRON PROFILE Routine Reticulocyte Count Routine Transglutaminase IgA Routine Vitamin B12 and Folate Routine 05/05/20 15:27 Hemoglobin Electrophoresis Routine 05/05/20 15:34 Add Laboratory Test Routine Laboratory Last Values WBC 6.1 X10*3/uL (4.8-10.8) 05/05/20 14:30 RBC 5.99 X10*6/uL (4.20-5.50) H 05/05/20 14:30 RBC (Send Out) 6.07 Million/uL (3.80-5.10) H 05/05/20 15:27 Hgb 12.9 g/dl (12.0-16.0) D 05/05/20 14:30 Hgb (Send Out) 12.9 g/dL (11.7-15.5) 05/05/20 15:27 Hct 43.0 % (37-47) 05/05/20 14:30 Hct (Send Out) 42.6 % (35.0-45.0) 05/05/20 15:27 MCV 71.8 fL (80-98) L 05/05/20 14:30 MCV (Send Out) 70.2 fL (80.0-100.0) L 05/05/20 15: MCH 21.5 pg (27.0-33.0) L 05/05/20 14:30 MCH (Send Out) 21.3 pg (27.0-33.0) L 05/05/20 15: MCHC 30.0 g/dl (31.0-35.0) L 05/05/20 14:30 RDW Not Reportable 05/05/20 14:30 Red Cell Dist (Send Out) SEE NOTE % (11.0-15.0) 05/05/20 15: Plt Count 307 X10*3/uL (160-400) D 05/05/20 14:30 MPV Not Reportable 05/05/20 14: Absolute Nucleated RBC 0.000 X10*3/uL (0.0-0.012) 05/05/20 14:30 Nucleated RBC % (auto) 0.0 /100WBC (0.0-0.2) 05/05/20 14:30 Neutrophils % (Manual) 41 % (45-73) L 05/05/20 14:30 Band Neutrophils % 0 % (3-5) L 05/05/20 14:30 Lymphocytes % (Manual) 33 % (20-40) 05/05/20 14:30 Monocytes % (Manual) 11 % (2-11) 05/05/20 14:30 Eosinophils % (Manual) 12 % (0-4) H 05/05/20 14:30 Basophils % (Manual) 3 % (0-1) H 05/05/20 14:30 Abs Neuts (Manual) 2.5 X10*3/uL (2.2-7.9) 05/05/20 14:30 Lymphocytes # (Manual) 2.0 X10*3/uL (0.6-4.8) 05/05/20 14:30 Monocytes # (Manual) 0.7 X10*3/uL (0.0-1.2) 05/05/20 14:30 Eosinophils # (Manual) 0.7 X10*3/UL (0.0-0.8) 05/05/20 14:30 Basophils # (Manual) 0.2 X10*3/uL (0.0-0.3) 05/05/20 14:30 Platelet Estimate NORMAL (NORMAL) 05/05/20 14:30 Plt Morphology Comment NORMAL 05/05/20 14:30 RBC Morphology NOTED 05/05/20 14:30 Hypochromasia 1+ 05/05/20 14:30 Microcytosis 1+ 05/05/20 14:30 Macrocytosis 1+ 05/05/20 14:30 Spherocytes 1+ 05/05/20 14:30 Target Cells 1+ 05/05/20 14:30 Tear Drop Cells 1+ 05/05/20 14:30 Ovalocytes 1+ 05/05/20 14:30 Stomatocytes 1+ 05/05/20 14:30 Absolute Retic TNP 05/05/20 14:30 Percent Retic 0.5 % (0.5-1.8) 05/05/20 14:30 Immature Retic Fraction TNP 05/05/20 14:30 Retic Hgb Equivalent TNP 05/05/20 14:30 Hemoglobin A 96.8 % (>96.0) 05/05/20 15:27 Hemoglobin A2 2.2 % (1.8-3.5) 05/05/20 15:27 Hemoglobin C TNP 05/05/20 15:27 Hemoglobin E TNP 05/05/20 15:27 Hemoglobin F <1.0 % (<2.0) 05/05/20 15:27 Hemoglobin S TNP 05/05/20 15:27 Hgb ELP Comment TNP 05/05/20 15:27 Hgb ELP Comment 2 TNP 05/05/20 15:27 Hgb ELP Interp SEE NOTE 05/05/20 15:27 Sodium 140 mmol/L (135-145) 05/05/20 14:30 Potassium 4.1 mmol/l (3.3-5.1) 05/05/20 14:30 Chloride 106 mmol/L (96-108) 05/05/20 14:30 Carbon Dioxide 26 mmol/L (22-29) 05/05/20 14:30 Anion Gap 12 (12-20) 05/05/20 14:30 BUN 13 mg/dL (9-16) 05/05/20 14:30 Creatinine 0.73 mg/dL (0.5-1.4) 05/05/20 14:30 Estim Creat Clear Calc 79.8 05/05/20 14:30 Estimated GFR > 60 05/05/20 14:30 Random Glucose 105 mg/dL (60-115) 05/05/20 14:30 Calcium 9.6 mg/dL (8.4-10.2) D 05/05/20 14:30 Iron 68 mcg/dL (30-160) 05/05/20 14:30 TIBC 458 mcg/dL (228-428) H 05/05/20 14:30 % Saturation 15 % (15-50) 05/05/20 14:30 Unsat Iron Binding 390 ug/dL 05/05/20 14:30 Ferritin 54 ng/mL (10-250) 05/05/20 14:30 Total Bilirubin 0.3 mg/dL (0.0-1.0) 05/05/20 14:30 AST 69 U/L (5-31) H 05/05/20 14:30 ALT 58 U/L (0-31) H 05/05/20 14:30 Alkaline Phosphatase 70 U/L (39-117) 05/05/20 14:30 Total Protein 7.4 g/dL (6.5-8.0) 05/05/20 14:30 Albumin 3.9 g/dL (3.5-5.0) 05/05/20 14:30 Vitamin B12 509 pg/mL (200-900) 05/05/20 14:30 Folate 16.0 ng/mL (> or = 4.0) 05/05/20 14:30 Tiss Transglutamin IgA 1 U/mL 05/05/20 14:30 Blood Type TNP 05/05/20 14:30 Antibody Screen TNP 05/05/20 14:30 Progress Note: A/P (1) Microcytic anemia Status: Acute (2) Microcytic anemia Status: Inactive Assessment and plan: This is a pleasant 55-year-old lady, seen here a couple of months ago, with onset of symptoms a couple of months ago consisting of progressive easy fatigability. She was noted to have a microcytic hypochromic anemia with a hemoglobin down to 6 range. She had a couple of units of blood at [facility], in the beginning of March. She was started on oral iron. She felt a lot better after the transfusion but now her energy level is trailing. Initially, she did have some GI complaints. Occasional bright red blood per rectum. Her stool was black however that could be the oral iron. My concern was iron deficiency anemia related to occult GI bleeding. Other possibilitywais iron malabsorption from something like celiac disease. Hemoglobin on April 09 was 10.2. DIFFERENTIAL DIAGNOSIS: Includes: 2. Thalassemia: Could cause the Microcytosis. She is from [place] where it is a common finding. I checked her labs: B12 509. Folate 16. l checked a type and screen, in case she would need a transfusion. l checked iron studies however they may not be reliable, given that she is on iron replacement and had blood transfusion earlier. Iiron studies: 68/458/15/54. l checked for celiac disease: Transglut. IgA is less than 1. l referred her for further GI evaluation for EGD/colonoscopy. She was actually scheduled however she said she did not keep the appointment since she her symptoms resolved with increased activity. PLAN: Her blood count today is normal. Hemoglobin has improved. All that is good news. For now she was advised to continue to take iron supplements along with vitamin- C for another 3 months to replete her iron stores. She will return in 3 months for a follow-up visit. Thank you, cc: Dr. Jose Manuel Saleh. Dr. Lobo Herrera. - Time Spent With Patient Total time spent is greater than 50% in coordination of care (as documented) at patient's floor/unit and/or counseling patient: 25 - 35 minutes
[2020-06-05 15:02] LABS: Basophils Absolute Auto 0.1 X10*3/uL (0.0-0.2); Basophils Percent Auto 0.9 % (0-2); Eosinophils Absolute Auto 0.4 X10*3/uL (0.0-0.4); Eosinophils Percent Auto 5.7 % (0-4); Hematocrit 43.6 % (37-47); Hemoglobin 13.7 g/dl (12.0-16.0); Imm Gran Abs Auto 0.01 X10*3/uL (0.00-0.03); Imm Gran Pct Auto 0.1 % (0.0-0.4); Lymphocytes Absolute Auto 2.9 X10*3/uL (1.2-4.9); Lymphocytes Percent Auto 40.8 % (20-40); MANUAL DIFF FLAG SCAN; Mean Corpuscular HGB Conc 31.4 g/dl (31.0-35.0); Mean Corpuscular Hemoglobin 23.9 pg (27.0-33.0); Mean Corpuscular Volume 76.1 fL (80-98); Monocytes Absolute Auto 0.6 X10*3/uL (0.1-1.2); Monocytes Percent Auto 8.7 % (2-11); Neutrophils Absolute Auto 3.1 X10*3/uL (2.0-8.3); Neutrophils Percent Auto 43.8 % (45-73); Platelet Count 275 X10*3/uL (160-400); Red Blood Count 5.73 X10*6/uL (4.20-5.50); SCAN SMEAR FLAG 1
[2020-06-05 15:04] LABS: PLT ABN DIST 1
[2020-06-05 15:10] LABS: SLIDE REVIEW VERIFIED
[2020-06-05 15:17] LABS: Alanine Aminotransferase 49 U/L (0-31); Albumin Level 3.9 g/dL (3.5-5.0); Alkaline Phosphatase 86 U/L (39-117); Anion Gap 13 (12-20); Aspartate Amino Transferase 52 U/L (5-31); Bilirubin Total 0.3 mg/dL (0.0-1.0); Blood Urea Nitrogen 12 mg/dL (9-16); Calcium 9.7 mg/dL (8.4-10.2); Carbon Dioxide 27 mmol/L (22-29); Chloride 105 mmol/L (96-108); Creatinine Clr Calc Pharmacy 89.8; Estimated Glomerular Filt Rate > 60; Glucose Random 97 mg/dL (60-115); Sodium 141 mmol/L (135-145); Total Protein 7.3 g/dL (6.5-8.0)
[2020-06-05 15:38] LABS: Ferritin 58 ng/mL (10-250)
== END | disposition home or self-care (01) ==
LOC: HO.ONC 05-05 13:30
PROVIDERS: PCP Internal Medicine; Referring Provider Internal Medicine; Visit Provider Internal Medicine Medical Oncology
DX: D50.9 Iron deficiency anemia, unspecified (principal); Z79.899 Other long term (current) drug therapy
CPT/HCPCS: 36415; 80053; 82607; 82728; 82746; 83021; 83516; 83540; 85007; 85014; 85018; 85025; 85027; 85041; 85045; 86850; 99204; 99214

== ENCOUNTER 2024-04-20 11:33 | Outpatient (AMB) | payer OTHER, SELFPAY ==
--- NOTE | 2024-04-20 11:37 | A.OFFVIS_ITS ---
Intake Visit Reasons: Inj-B/L knee OA, last inj 12/06/23 Intake Note: Jyoti is a 58 year old female who presents today for a follow up for her bilateral knee OA, last inj 12/06/23. Patient reports the last injections didn't give her any relief. She has tried and failed 3 + months of Tylenol and NSAIDs. Allergies No Known Allergies [No Known Allergies*] Allergy (Verified 04/20/24 11:53) HPI HPI Inj-B/L knee OA, last inj 12/06/23: Details: 59-year-old female, who is [place] speaking, presents in the office today for a follow-up of bilateral knee osteoarthritis. I last saw the patient in the office on 12/06/23 when she was given a cortisone injection in the bilateral knees. We also discussed the role of gel injection and discussed sending the petition for insurance approval. While in the office today, the patient reports her last cortisone did not provide her any relief. She has tried and failed more than 3 months of Tylenol and NSAIDs. She would like to have a repeat injection today. [facility] Medical History Microcytic anemia Normal colonoscopy Low hematocrit Dyspepsia Anxiety, generalized Hypertension, essential Surgical History Hx of colonoscopy (~10/2014) Family History Father Heart attack Mother Hepatitis C HTN (hypertension) Social History Household Members Other:: . 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 Crepitus felt with range of motion. Tenderness to palpation medial and lateral joint lines bilaterally which is mild. Negative Kari. Negative anterior drawer. NVI. Office Procedures Joint Injection/Aspiration Joint Injection/Aspiration Primary Site: right knee Secondary Site: left knee Prep: site was prepped using aseptic technique, ethochloride spray was applied and injection warnings given Injected: 80 mg of, DepoMedrol, with 8 mL of (2% plain lido ) and in the joint Approach Used: anterolateral Procedure: The patient tolerated the procedure well, but had some pain with the injection and there was some relief with the local anesthesia Coding 24179 - Large joint Procedure code (CPT) selection complete Assessment & Plan Assessment & Plan (1) Knee pain, bilateral: Code(s): M25.561 - Pain in right knee; M25.562 - Pain in left knee Category: Medical (2) Osteoarthritis of knees, bilateral: Code(s): M17.0 - Bilateral primary osteoarthritis of knee Category: Medical Plan Ms. Beaver is a 59-year-old female, who is [place] speaking, presents in the office today for a follow-up of bilateral knee osteoarthritis. I last saw the patient in the office on 12/06/23 when she was given a cortisone injection in the bilateral knees. We also discussed the role of gel injection and discussed sending the petition for insurance approval. While in the office today, the patient reports her last cortisone did not provide her any relief. She has tried and failed more than 3 months of Tylenol and NSAIDs. She would like to have a repeat injection today. The patient was offered a cortisone injection in the bilateral knee with 80 mg of Depo-Medrol. The patient was explained the risks, benefits, and alternatives to receiving this injection. After receiving consent for the injection, the patient had the procedure done while in the office today. The patient tolerated the procedure well with no complication. Follow up will be PRN, or sooner if needed. Patient Instructions: Scribed by Aviva Spears medical communication specialist, for Adelina Martins PA-C on 04/19/24 at 11:50 am EST. Coding Level of Care Code Est Pt Level 3 (99710) Diagnoses Knee pain, bilateral M25.561; M25.562 Osteoarthritis of knees, bilateral M17.0 CPT Codes Coding - 12422 Large joint: 27641 - Large joint ([id number])
== END 2024-04-20 11:53 | disposition home or self-care (01) ==
PROVIDERS: PCP Internal Medicine; Visit Provider Physician Assistant
DX: M17.0 Bilateral primary osteoarthritis of knee (principal)
CPT/HCPCS: 20610; 99213

== ENCOUNTER → 2024-04-20 11:33 | Outpatient (BNVA) | payer OTHER, SELFPAY | PROVIDERS: PCP Internal Medicine; Visit Provider Physician Assistant | DX: M17.0 Bilateral primary osteoarthritis of knee (principal); M25.561 Pain in right knee; M25.562 Pain in left knee | CPT/HCPCS: 20610; 99212; J1010; J2003 ==

== ENCOUNTER 2024-05-23 15:08 | Outpatient (AMB) | payer OTHER, SELFPAY ==
[2024-05-23 15:15] VITALS: BP 154/82; PULSE 67; O2SAT 97; BMI 29.9
--- NOTE | 2024-05-23 15:15 | A.OFFPC_ITS ---
Vital Signs 05/23/24 15:15 Height 5 ft 4 in Weight 174 lb BMI 29.9 BP 154/82 H Blood Pressure Location Lt brachial Position Sitting Pulse 67 Pulse Source Pulse Oximeter Pulse Oximetry (%) 97 Oxygen Delivery Method Room Air Intake Visit Reasons: Rash on leg Allergies No Known Allergies [No Known Allergies*] Allergy (Verified 05/23/24 15:19) Medication List - Last Reconciled 05/23/24 by Jose Manuel Saleh MD atenolol 100 mg PO DAILY 90 days cholecalciferol (vitamin D3) 25 mcg PO DAILY 90 days escitalopram oxalate (Lexapro) 10 mg PO DAILY lorazepam 0.5 mg PO DAILY PRN 90 days losartan-hydrochlorothiazide 100-25 mg 1 tab PO DAILY multivitamin 1 cap PO DAILY pantoprazole 40 mg PO BEDTIME Tobacco use date assessed: 05/23/24 Dental Screening Dental Screen Date: 05/23/24 Did you have a dental visit in the last 12 months?: Yes Did you have a dental problem in the last 6 months where you did not have access to dental care?: No Was dental information given to patient?: Patient has dentist HPI Rash on leg HPI Details Patient is 59-year-old female who was last seen December of this year I did order labs which were supposed to be done however they are not done Reminded patient and her son who is present here today Blood pressure is always elevated when she comes to doctor's office, patient is on atenolol 100 mg and losartan hydrochlorothiazide 100-25 mg Patient tells me that at home it is running around 130s systolic Mood is stable with Lexapro 20 mg she is to continue that 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, taking Tylenol as needed LFT: Mild elevation, need to be monitored hepatitis profile was added but labs Lumbar pain is better, stable at this time She is complaining of frequent bruising on her legs without any injury or trauma She will take picture next time BMI is elevated need to lose weight GERD symptoms are worse, she is on pantoprazole 40 mg I have also added famotidine 40 mg to be taken in the morning I will stress controlling the diet and losing weight Follow-up June Medical History Microcytic anemia Normal colonoscopy Low hematocrit Dyspepsia Anxiety, generalized Hypertension, essential Surgical History Hx of colonoscopy (~10/2014) Family History Father Heart attack Mother Hepatitis C HTN (hypertension) Social History Household Members Other:: . 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 1. Little interest or pleasure in doing things: not at all 2. Feeling down, depressed, or hopeless: not at all 3. Trouble falling or staying asleep, or sleeping too much: not at all 4. Feeling tired or having little energy: not at all 5. Poor appetite or overeating: not at all 6. Feeling bad about yourself - or that you are a failure or have let yourself or your family down: not at all 7. Trouble concentrating on things, such as reading the newspaper or watching television: not at all 8. Moving or speaking so slowly that other people could have noticed. Or the opposite - being so fidgety or restless that you have been moving around a lot more than usual: not at all 9. Thoughts that you would be better off or of hurting yourself in some way: not at all Total score: 0 Depression Screening Interpretation: Negative Depression Screening Done: Yes 85687 - PHQ-9 Billing: Yes Source: Developed by Drs. Lio Ogden, Mildred Paez, Gen Butler and colleagues, with an educational radha from [employer] Thrive Questionnaire Date Thrive assessed: 05/23/24 I am a: Patient What is your living situation today?: I have a steady place to live Within the past 12 months, did the food you bought not last and you didn't have the money to get more?: I choose not to answer this question Within the past 12 months, did you worry whether your food would run out before you got money to buy more?: I choose not to answer this question Do you have trouble paying for medicines?: I choose not to answer this question Do you have trouble getting transportation to medical appointments?: I choose not to answer this question Do you have trouble paying your heating and electricity bill?: I choose not to answer this question Do you have trouble taking care of your child, family member or friend?: I choose not to answer this question Do you have trouble with day-to-day activities such as bathing, preparing meals, shopping, managing finances, etc.?: I choose not to answer this question Are you currently unemployed and looking for a job?: I choose not to answer this question Are you interested in more education?: I choose not to answer this question Please select the resources that you would like help with: None Currently or been in a relationship where the following occur: I choose not to answer THRIVE Score: 0 AUDIT C Alcohol Use Questionnaire (AUDIT-C) 1. How often do you have a drink containing alcohol?: Never 3. How often do you have six or more drinks on one occasion?: Never Total Score: 0 Score Reviewed/Action Taken: Yes SACHIN-7 AMB Questionnaire SACHIN-7 Date SACHIN - 7 assessed: 05/23/24 Feeling nervous, anxious, or on edge: 1 = Several days Not being able to stop or control worryin = Not at all Worrying too much about different things: 0 = Not at all Trouble relaxin = Not at all Being so restless that it is hard to sit still: 0 = Not at all Becoming easily annoyed or irritable: 0 = Not at all Feeling afraid as if something awful might happen: 0 = Not at all Total SACHIN-7 score (0-4 normal; 5-9 mild; 10-14 moderate; 15-21 severe): 1 Source: Developed by Drs. Lio Ogden, Mildred Paez, Gen Butler and colleagues, with an educational radha from [employer]. SACHIN-7 Assessment Billing SACHIN-7 Assessment Tool: SACHIN-7 Assessment 61396 Review of Systems Const Denies chills and Denies fever(s) ENT Denies epistaxis and Denies nasal discharge Card Denies chest pain Resp Denies chest congestion, Denies cough and Denies hemoptysis GI Denies diarrhea and Denies nausea Skin/Breast Denies rash Neuro Reports no additional complaints Psych Reports no additional complaints Endo Reports no additional complaints Physical exam (Primary Care) Vital Signs: Last Vital Signs Pulse 67 05/23/24 15:15 BP 154/82 H 05/23/24 15:15 Pulse Ox 97 05/23/24 15:15 Oxygen Delivery Method Room Air 05/23/24 15:15 BMI result Body Mass Index 29.9 Tobacco/Smoking Status: Tobacco use Status Tobacco use date assessed 05/23/24 05/23/24 15:21 Patient Tobacco Use Status Never used Tobacco 05/23/24 15:16 e-Cigarette/Vaping Use Never Used 05/23/24 15:16 PHQ-9: PHQ-9 Score PHQ-9: Total score 0 05/23/24 15:21 Depression Screening Interpretation: Negative Thrive Assessment: Date of Thrive Assessment Date Thrive assessed 05/23/24 05/23/24 15:21 Currently or been in a relationship where the following occur: I choose not to answer Const General: cooperative, comfortable and no acute distress Orientation/consciousness: patient oriented x3 HENMT Head: Yes normocephalic Eyes General: appearance normal, both eyes and all related structures Neck Neck: Yes supple Resp Effort & Inspection: normal respiratory effort, no cough and no stridor Cardio Rhythm: regular rhythm Heart sounds: S1 normal heart sound present and S2 normal heart sound present Skin General skin exam: turgor normal Neuro General: patient oriented x3, tone normal and moves all extremities Extrem Right lower extremity: no edema Left lower extremity: no edema Coding Level of Care Code Est Pt Level 4 (19499) Complex EM visit Add On G2211 Diagnoses Hypertension, essential I10 Anxiety, generalized F41.1 Dyspepsia R10.13 Gastroesophageal reflux disease without esophagitis K21.9 Esophagitis presence: without esophagitis Chronic pain of both knees M25.561; M25.562; G89.29 Chronicity: chronic Primary osteoarthritis of both knees M17.0 Osteoarthritis type: primary LFT elevation R79.89 Additional Codes SACHIN-7 Assessment Billing - SACHIN-7 Assessment Tool: SACHIN-7 Assessment 11343 ([id number]) PHQ-9 - 25741 - PHQ-9 Billing: Yes ([id number]) Assessment & Plan Assessment & Plan (1) Hypertension, essential: Comment: continue medications Code(s): I10 - Essential (primary) hypertension Category: Medical (2) Anxiety, generalized: Comment: continue medications Code(s): F41.1 - Generalized anxiety disorder Category: Medical (3) Dyspepsia: Comment: continue medications Code(s): R10.13 - Epigastric pain Category: Medical (4) GERD (gastroesophageal reflux disease): Code(s): K21.9 - Gastro-esophageal reflux disease without esophagitis Category: Medical Qualifiers: Esophagitis presence: without esophagitis Qualified Code(s): K21.9 - Gastro-esophageal reflux disease without esophagitis (5) Knee pain, bilateral: Code(s): M25.561 - Pain in right knee; M25.562 - Pain in left knee Category: Medical Qualifiers: Chronicity: chronic Qualified Code(s): M25.561 - Pain in right knee; M25.562 - Pain in left knee; G89.29 - Other chronic pain (6) Osteoarthritis of knees, bilateral: Code(s): M17.0 - Bilateral primary osteoarthritis of knee Category: Medical Qualifiers: Osteoarthritis type: primary Qualified Code(s): M17.0 - Bilateral primary osteoarthritis of knee (7) LFT elevation: Code(s): R79.89 - Other specified abnormal findings of blood chemistry Category: Medical Plan Patient is 59-year-old female who was last seen December of this year I did order labs which were supposed to be done however they are not done Reminded patient and her son who is present here today Blood pressure is always elevated when she comes to doctor's office, patient is on atenolol 100 mg and losartan hydrochlorothiazide 100-25 mg Patient tells me that at home it is running around 130s systolic Mood is stable with Lexapro 20 mg she is to continue that 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, taking Tylenol as needed LFT: Mild elevation, need to be monitored hepatitis profile was added but labs Lumbar pain is better, stable at this time She is complaining of frequent bruising on her legs without any injury or trauma She will take picture next time BMI is elevated need to lose weight GERD symptoms are worse, she is on pantoprazole 40 mg I have also added famotidine 40 mg to be taken in the morning I will stress controlling the diet and losing weight Follow-up June Orders: Orders MM tomosynthesis screening BI Today Z12.31 - Encounter for screening mammogram for malignant neoplasm of breast Medications: New famotidine 40 mg PO .q am 90 days 90 tabs 0RF [place] Refilled atenolol 100 mg PO DAILY 90 days 90 tabs 1RF I10 - Essential (primary) hypertension cholecalciferol (vitamin D3) 25 mcg PO DAILY 90 days 90 tabs 1RF Vitamin-D supplement losartan-hydrochlorothiazide 100-25 mg 1 tab PO DAILY 90 tabs 1RF escitalopram oxalate (Lexapro) 10 mg PO DAILY 90 tabs 3RF Anxiety pantoprazole 40 mg PO BEDTIME 90 tabs 1RF Stomach acid
== END 2024-05-23 15:36 | disposition home or self-care (01) ==
PROVIDERS: PCP Internal Medicine; Visit Provider Internal Medicine
DX: I10 Essential (primary) hypertension (principal); F41.1 Generalized anxiety disorder; R10.13 Epigastric pain; K21.9 Gastro-esophageal reflux disease without esophagitis; M25.561 Pain in right knee; M25.562 Pain in left knee; G89.29 Other chronic pain; M17.0 Bilateral primary osteoarthritis of knee; R79.89 Other specified abnormal findings of blood chemistry

== ENCOUNTER → 2024-05-23 15:08 | Outpatient (BNVA) | payer OTHER, SELFPAY | PROVIDERS: PCP Internal Medicine; Visit Provider Internal Medicine | DX: I10 Essential (primary) hypertension (principal); F41.1 Generalized anxiety disorder; R10.13 Epigastric pain; K21.9 Gastro-esophageal reflux disease without esophagitis; M17.0 Bilateral primary osteoarthritis of knee; G89.29 Other chronic pain; R79.89 Other specified abnormal findings of blood chemistry | CPT/HCPCS: 96127; 99212 ==

== ENCOUNTER 2024-05-25 11:41 | Outpatient (REF) | payer OTHER, SELFPAY ==
[2024-05-25 13:38] LABS: MANUAL DIFF FLAG NO
[2024-05-25 13:45] LABS: Basophils Absolute Auto 0.1 X10*3/uL (0.0-0.2); Basophils Percent Auto 1.2 % (0-2); Eosinophils Absolute Auto 0.2 X10*3/uL (0.0-0.4); Eosinophils Percent Auto 3.2 % (0-4); Hematocrit 45.9 % (37.0-47.0); Hemoglobin 14.7 g/dl (12.0-16.0); Imm Gran Abs Auto 0.03 X10*3/uL (0.00-0.03); Imm Gran Pct Auto 0.4 % (0.0-0.4); Lymphocytes Absolute Auto 2.7 X10*3/uL (1.2-4.9); Lymphocytes Percent Auto 36.1 % (20-40); Mean Corpuscular Hemoglobin 26.3 pg (27.0-33.0); Mean Platelet Volume 10.7 fL (9.4-12.3); Monocytes Absolute Auto 0.6 X10*3/uL (0.1-1.2); Monocytes Percent Auto 8.4 % (2-11); Neutrophils Absolute Auto 3.7 x10*3/uL (2.0-8.3); Neutrophils Percent Auto 50.7 % (45-73); Platelet Count 262 X10*3/uL (160-400); Red Cell Distribution Width 13.3 % (11.0-16.0); White Blood Count 7.4 X10*3/uL (4.8-10.8)
[2024-05-25 14:11] LABS: Alanine Aminotransferase 56 U/L (0-31); Albumin Level 3.7 g/dL (3.5-5.0); Alkaline Phosphatase 113 U/L (39-117); Anion Gap 13 (12-20); Aspartate Amino Transferase 66 U/L (5-31); Bilirubin Total 0.5 mg/dL (0.0-1.0); Blood Urea Nitrogen 11 mg/dL (9-16); Carbon Dioxide 23 mmol/L (22-29); Chloride 110 mmol/L (96-108); Cholesterol 195 mg/dL (<200); Estimated Glomerular Filt Rate > 60; Glucose Fasting 112 mg/dL (60-99); HDL Cholesterol 58 mg/dL (>40); LDL Cholesterol Calculated 112 mg/dL (<100); Potassium 3.7 mmol/L (3.3-5.1); Sodium 142 mmol/L (135-145); Total Protein 7.6 g/dL (6.5-8.0); Triglycerides 127 mg/dL (<150)
[2024-05-25 14:26] LABS: TSH reflex Free T4 2.27 uIU/mL (0.32-4.0)
[2024-05-25 14:28] LABS: HBS Num1 229.91 mIU/mL (0-7.99); HBsAGNum1 0.33 S/CO (0.00-0.99); Hepatitis A Antibody IgM 0.35 Index (0-0.79); Hepatitis B Surface Antigen Negative (Negative); ~Hepatitis A Antibody IgM Nonreactive (Nonreactive); ~Hepatitis B Surface Antibody REACTIVE (Nonreactive); ~Hepatitis C Antibody Reactive (Nonreactive)
[2024-05-28 04:15] LABS: HBc Num2 3.38 S/CO; HBc Num3 3.43 S/CO; Hepatitis B Core Antibody Reactive (Nonreactive)
== END 2024-05-25 11:42 | disposition home or self-care (01) ==
LOC: HO.HMGCLDS 11:41
PROVIDERS: PCP Internal Medicine; Visit Provider Internal Medicine
DX: I10 Essential (primary) hypertension (principal); F41.1 Generalized anxiety disorder; R10.13 Epigastric pain; K21.9 Gastro-esophageal reflux disease without esophagitis; R79.89 Other specified abnormal findings of blood chemistry
CPT/HCPCS: 36415; 80053; 80061; 84443; 85025; 86704; 86706; 86709; 86803; 87340

== ENCOUNTER 2024-06-18 12:41 | Outpatient (AMB) | payer OTHER, SELFPAY ==
--- NOTE | 2024-06-18 13:56 | AM.OFFWIN_ITS ---
Intake Vital Signs 06/18/24 14:03 Height 5 ft 4 in Weight 176 lb BMI 30.2 BP 122/84 Blood Pressure Location Lt brachial Position Sitting Pulse 63 Pulse Source Pulse Oximeter Pulse Oximetry (%) 97 Oxygen Delivery Method Room Air Intake Visit Reasons: EP eye redness, swelling, irritated Intake Note: Patient here for left eye redness, swelling and feels like pressure that started yesterday. She had cataract surgery in January. Patient Tobacco Use Status: Never used Tobacco Allergies No Known Allergies [No Known Allergies*] Allergy (Verified 06/18/24 14:05) Do you need a note to return to daycare/school/sports/work: No HPI HPI Comments History of Present Illness Details History of Present Illness The patient is a 59-year-old female presenting with concerns regarding her left eye. She is here with her son who is interpreting/speaking for her. She reported the onset of redness localized to the left eye beginning the previous night. The redness was prominent but not accompanied by any bleeding, pain, or vision changes. The patient described experiencing her left eye feels slightly uncomfortable but not painful. She denied any recent trauma to the area. The patient underwent cataract surgery on the left eye in January, which is approximately four months ago. She has been regularly following up with her automotive designer, Dr. Roman Garcia. The patient has experienced episodes of sneezing yesterday that may have contributed to the current eye issue as explained during the discussion. She has no history of anticoagulation therapy, which could have potentially exacerbated the condition. Physical Exam General: Cooperative, healthy appearing, comfortable, no acute distress and well developed Orientation: Patient oriented x3 Limitations: No limitations Head: Normal to inspection Ears: Hearing grossly normal bilaterally Nose: Normal external nose present Face and sinus: Normal facial exam Eyes: lateral left eye subconjunctival hemorrhage noted, PERRLA, EOM intact, no lid swelling Neck: Normal visual inspection and Yes full ROM Respiratory: Normal respiratory effort and able to speak in complete sentences. Skin: No rashes or lesions noted Neuro: Patient oriented x3 Extremities: Normal to inspection [facility] Medical History Microcytic anemia Normal colonoscopy Low hematocrit Dyspepsia Anxiety, generalized Hypertension, essential Surgical History Hx of colonoscopy (~10/2014) Family History Father Heart attack Mother Hepatitis C HTN (hypertension) Social History Household Members Other:: . 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 Cognitive needs: No Hearing needs: No Vision needs: Yes Review of Systems Const All systems reviewed & are unremarkable except as noted in HPI and below Physical Exam Vital Signs: Last Vital Signs Pulse 63 06/18/24 14:03 BP 122/84 06/18/24 14:03 Pulse Ox 97 06/18/24 14:03 Oxygen Delivery Method Room Air 06/18/24 14:03 BMI result Body Mass Index 30.2 Assessment & Plan Assessment & Plan (1) Subconjunctival hemorrhage of left eye: Code(s): H11.32 - Conjunctival hemorrhage, left eye Plan: Plan - Reassure the patient that the subconjunctival hemorrhage is a benign condition that should resolve over the course of approximately two weeks, but may persist for longer. - Advise the patient to monitor for any changes in vision, onset of pain, or increased pressure sensation. If any of these symptoms manifest, immediate follow-up with an automotive designer or visit to the emergency room should be completed. - Encourage contacting Dr. Roman Garcia's office to discuss concerns about any potential delayed complications from the cataract surgery, although it is unlikely after four months. - Recommend that the patient avoid strenuous activities that may exacerbate the eye condition, such as heavy lifting or prolonged straining. Patient was informed and verbally consented to the use of an ambient scribe for clinic note documentation during this visit. Coding Level of Care Code Est Pt Level 3 (48779) Diagnoses Subconjunctival hemorrhage of left eye H11.32
[2024-06-18 14:03] VITALS: BP 122/84; PULSE 63; O2SAT 97; BMI 30.2
== END 2024-06-18 14:28 | disposition home or self-care (01) ==
PROVIDERS: PCP Internal Medicine; Visit Provider Physician Assistant
DX: H11.32 Conjunctival hemorrhage, left eye (principal)

== ENCOUNTER → 2024-06-18 12:41 | Outpatient (BNVA) | payer OTHER, SELFPAY | PROVIDERS: PCP Internal Medicine; Visit Provider Physician Assistant | DX: H11.32 Conjunctival hemorrhage, left eye (principal) | CPT/HCPCS: 99212 ==

== ENCOUNTER 2024-07-06 14:40 | Outpatient (REF) | payer OTHER, SELFPAY | END 2024-07-06 14:41 | disposition home or self-care (01) | LOC: HO.MAMMO 14:40 | PROVIDERS: PCP Internal Medicine; Visit Provider Internal Medicine | DX: Z12.31 Encounter for screening mammogram for malignant neoplasm of breast (principal) | CPT/HCPCS: 77063; 77067 ==

== ENCOUNTER → 2024-07-06 14:45 | Outpatient (BNV) | payer OTHER, SELFPAY | PROVIDERS: PCP Internal Medicine; Visit Provider Internal Medicine | DX: Z12.31 Encounter for screening mammogram for malignant neoplasm of breast (principal) | CPT/HCPCS: 77063; 77067 ==

== ENCOUNTER 2024-07-12 14:28 | Outpatient (AMB) | payer OTHER, SELFPAY ==
--- NOTE | 2024-07-12 14:40 | A.OFFVIS_ITS ---
Intake Visit Reasons: INJ B/L Knee Euflexxa gel Injections #1 Intake Note: Jyoti is a 59 year old female who presents today for her bilateral knee Euflexxa gel injecitons #1. Allergies No Known Allergies [No Known Allergies*] Allergy (Verified 06/18/24 14:05) HPI HPI INJ B/L Knee Euflexxa gel Injections #1: Details: Patient presents to the office today for bilateral Euflexxa 1. Injections. PFS Medical History Microcytic anemia Normal colonoscopy Low hematocrit Dyspepsia Anxiety, generalized Hypertension, essential Surgical History Hx of colonoscopy (~10/2014) Family History Father Heart attack Mother Hepatitis C HTN (hypertension) Social History Household Members Other:: . 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 Crepitus felt with range of motion. Tenderness to palpation medial and lateral joint lines bilaterally which is mild. Negative Kari. Negative anterior drawer. NVI. Office Procedures AMB Joint Injection/Aspiration Joint Injection/Aspiration Primary Site: right knee Secondary Site: left knee Prep: site was prepped using aseptic technique, ethochloride spray was applied and injection warnings given Injected: in the joint (Euflexxa 1.) Approach Used: anterolateral Procedure: The patient tolerated the procedure well, but had some pain with the injection and there was some relief with the local anesthesia Coding 78499 - Large joint Procedure code (CPT) selection complete Assessment & Plan Assessment & Plan (1) Osteoarthritis of knees, bilateral: Code(s): M17.0 - Bilateral primary osteoarthritis of knee Category: Medical Qualifiers: Osteoarthritis type: primary Qualified Code(s): M17.0 - Bilateral primary osteoarthritis of knee Plan The patient was offered a Euflexxa #1 injection in bilateral knees. The patient was explained the risks, benefits, and alternatives to receiving this injection. After receiving consent for the injection, the patient had the procedure done wh ile in the office today. The patient tolerated the procedure well with no complications. Follow-up will be 1 week for Euflexxa 2, or sooner if needed Coding Level of Care Code Procedure Only Diagnoses Primary osteoarthritis of both knees M17.0 Osteoarthritis type: primary CPT Codes Coding - 97364 Large joint: 86781 - Large joint ([id number])
== END 2024-07-12 14:45 | disposition home or self-care (01) ==
PROVIDERS: PCP Internal Medicine; Visit Provider Physician Assistant
DX: M17.0 Bilateral primary osteoarthritis of knee (principal)
CPT/HCPCS: 20610

== ENCOUNTER → 2024-07-12 14:28 | Outpatient (BNVA) | payer OTHER, SELFPAY | PROVIDERS: PCP Internal Medicine; Visit Provider Physician Assistant | DX: M17.0 Bilateral primary osteoarthritis of knee (principal) | CPT/HCPCS: 20610; J7323 ==

== ENCOUNTER 2024-07-19 10:07 | Outpatient (AMB) | payer OTHER, SELFPAY ==
--- NOTE | 2024-07-19 10:09 | MHC.OFFVIS ---
Vital Signs 07/19/24 10:19 Height 5 ft 4 in Weight 176 lb BMI 30.2 Handedness Right Intake Visit Reasons: INJ B/L Knee Euflexxa gel Injections #2 Intake Note: Jyoti is a 59 year old female who presents today for her bilateral Euflexxa gel injections #2. Patient has been noticing improvements in her pain a little bit, however she is still having pain in her knees. Allergies No Known Allergies [No Known Allergies*] Allergy (Verified 07/19/24 10:19) HPI HPI INJ B/L Knee Euflexxa gel Injections #2: Details: Patient presents to the office today for bilateral Euflexxa #2 Injections. [facility] Medical History Microcytic anemia Normal colonoscopy Low hematocrit Dyspepsia Anxiety, generalized Hypertension, essential Surgical History Hx of colonoscopy (~10/2014) Family History Father Heart attack Mother Hepatitis C HTN (hypertension) Social History Household Members Other:: . 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 Cognitive needs: No Hearing needs: No Vision needs: Yes Review of Systems Const All systems reviewed & are unremarkable except as noted in HPI and below Physical Exam Vital Signs: BMI result Body Mass Index 30.2 Const General: cooperative, healthy appearing and no acute distress Resp Effort & Inspection: normal respiratory effort and able to speak in complete sentences Cardio Rate: regular rate Peripheral pulses: Peripheral pulses 2+ throughout GI Palpation (GI): Soft to palpation Skin Lesions: no lesions Rashes: no rashes Extrem Other: Bilateral knees normal to inspection no ecchymosis erythema or edema. Crepitus felt with range of motion. Tenderness to palpation medial and lateral joint lines bilaterally which is mild. Negative Kari. Negative anterior drawer. NVI. Office Procedures AMB Joint Injection/Aspiration Joint Injection/Aspiration Primary Site: right knee Secondary Site: left knee Injected: in the joint (Euflexxa #2) Approach Used: anterolateral Procedure: The patient tolerated the procedure well, but had some pain with the injection and there was some relief with the local anesthesia Coding 50887 - Large joint Procedure code (CPT) selection complete Assessment & Plan Assessment & Plan (1) Osteoarthritis of knees, bilateral: Code(s): M17.0 - Bilateral primary osteoarthritis of knee Category: Medical Qualifiers: Osteoarthritis type: primary Qualified Code(s): M17.0 - Bilateral primary osteoarthritis of knee Plan The patient was offered a Euflexxa #2 injection in bilateral knees. The patient was explained the risks, benefits, and alternatives to receiving this injection. After receiving consent for the injection, the patient had the procedure done while in the office today. The patient tolerated the procedure well with no complications. Follow-up will be 1 week for Euflexxa 3, or sooner if needed Coding Level of Care Code Procedure Only Diagnoses Primary osteoarthritis of both knees M17.0 Osteoarthritis type: primary CPT Codes Coding - 19014 Large joint: 40580 - Large joint ([id number])
[2024-07-19 10:19] VITALS: BMI 30.2
== END 2024-07-19 10:25 | disposition home or self-care (01) ==
PROVIDERS: PCP Internal Medicine; Visit Provider Physician Assistant
DX: M17.0 Bilateral primary osteoarthritis of knee (principal)
CPT/HCPCS: 20610

== ENCOUNTER → 2024-07-19 10:07 | Outpatient (BNVA) | payer OTHER, SELFPAY | PROVIDERS: PCP Internal Medicine; Visit Provider Physician Assistant | DX: M17.0 Bilateral primary osteoarthritis of knee (principal) | CPT/HCPCS: 20610; J7323 ==

== ENCOUNTER 2024-07-24 10:05 | Outpatient (REF) | payer OTHER, SELFPAY ==
--- NOTE | ~2024-07-24 | XR_ITS ---
CLINICAL HISTORY: R05.9 - Cough, unspecified 2 view chest x-ray Comparison: None Findings: Lungs are clear without acute infiltrates. No pneumothorax. Heart size normal. No acute bony abnormalities. Impression: No acute processes This document has been electronically signed by: Sincere Orozco MD on 07/24/2024 19:24:02
== END 2024-07-24 10:06 | disposition home or self-care (01) ==
LOC: HO.HMGCX 10:05
PROVIDERS: PCP Internal Medicine; Visit Provider Internal Medicine
DX: R05.9 Cough, unspecified (principal); R05.2 Subacute cough; I10 Essential (primary) hypertension; F41.1 Generalized anxiety disorder; R10.13 Epigastric pain; K21.9 Gastro-esophageal reflux disease without esophagitis; M25.561 Pain in right knee; M25.562 Pain in left knee; G89.29 Other chronic pain; M17.0 Bilateral primary osteoarthritis of knee; R79.89 Other specified abnormal findings of blood chemistry
CPT/HCPCS: 71046; 99212

== ENCOUNTER 2024-07-24 10:05 | Outpatient (AMB) | payer OTHER, SELFPAY ==
--- NOTE | 2024-07-24 10:06 | A.OFFPC_ITS ---
Vital Signs 07/24/24 10:07 Height 5 ft 4 in Weight 178 lb 6 oz BMI 30.6 BP 138/82 Blood Pressure Location Lt brachial Position Sitting Pulse 65 Pulse Source Pulse Oximeter Pulse Oximetry (%) 96 Oxygen Delivery Method Room Air Intake Visit Reasons: 2 month follow up Allergies No Known Allergies [No Known Allergies*] Allergy (Verified 07/19/24 10:19) Medication List - Last Reconciled 07/24/24 by Jose Manuel Saleh MD atenolol 100 mg PO DAILY 90 days cholecalciferol (vitamin D3) 25 mcg PO DAILY 90 days escitalopram oxalate (Lexapro) 10 mg PO DAILY famotidine 40 mg PO .q am 90 days lorazepam 0.5 mg PO DAILY PRN 90 days losartan-hydrochlorothiazide 100-25 mg 1 tab PO DAILY multivitamin 1 cap PO DAILY pantoprazole 40 mg PO BEDTIME Tobacco use date assessed: 05/23/24 Dental Screening Dental Screen Date: 05/23/24 HPI 2 month follow up HPI Details Follow-up appointment - The patient is a 59-year-old female pr esenting with chronic cough. - Duration of the cough is approximately one month, arising with preceding respiratory infections. - The cough is persistent, dry, and with out associated respiratory distress. - Management so far includes over-the-co unter remedies and prescribed nighttime cough syrup for symptomatic relief. - Past medical evaluation showed normal Vitamin D levels; currently advised to take 1000 IU Vitamin D weekly. - Discussed anxiety and depression, with a history of escitalopram use, currently not on medication for these conditions. - hypertension, blood pressure is stable with medication - GERD is stable with H2 blockers PPI Medications - Atenolol for hypertension - Losartan/Hydrochlorothiazide for hyper tension - Pantoprazole for gastroesophageal refl ux disease (GERD) - Famotidine for GERD - Vitamin D, 1000 IU weekly (previously checked normal levels) - Edab-dfs-wyztysw cough medication for chronic cough Problem List - Chronic Cough - Gastroesophageal Reflux Disease (GERD) - Hypertension - Anxiety/Depression - obesity Patient Instructions - Continue taking the prescribed nightti me cough syrup to manage cough symptoms. - Use cioi-wqm-nxctexy cough medication during the day, taken as needed. - Prepare and drink herbal concoctions s uch as ian and turmeric tea in the evenings for additional relief. - Vitamin D supplement can be reduced to twice a week at 1000 IU based on previous normal levels. - Return for a follow-up blood test and evaluation as instructed. - Report back if the chronic cough persi sts beyond two to three weeks or worsens. Review of Systems - Respiratory: Reports persistent, dry c ough; denies breathing difficulties. - Gastrointestinal: Denies current heart burn or stomach pain. - Psychiatric: Denies current depression or anxiety episodes. 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 Cognitive needs: No Hearing needs: No Vision needs: Yes Questionnaire Thrive Questionnaire Date Thrive assessed: 05/23/24 I am a: Patient What is your living situation today?: I choose not to answer this question Within the past 12 months, did the food you bought not last and you didn't have the money to get more?: I choose not to answer this question Within the past 12 months, did you worry whether your food would run out before you got money to buy more?: I choose not to answer this question Do you have trouble paying for medicines?: I choose not to answer this question Do you have trouble getting transportation to medical appointments?: I choose not to answer this question Do you have trouble paying your heating and electricity bill?: I choose not to answer this question Do you have trouble taking care of your child, family member or friend?: I choose not to answer this question Do you have trouble with day-to-day activities such as bathing, preparing meals, shopping, managing finances, etc.?: I choose not to answer this question Are you currently unemployed and looking for a job?: I choose not to answer this question Are you interested in more education?: I choose not to answer this question Please select the resources that you would like help with: None Currently or been in a relationship where the following occur: I choose not to answer THRIVE Score: 0 AUDIT C Alcohol Use Questionnaire (AUDIT-C) 1. How often do you have a drink containing alcohol?: Never Total Score: 0 SACHIN-7 AMB Questionnaire SACHIN-7 Date SACHIN - 7 assessed: 05/23/24 Feeling nervous, anxious, or on edge: 0 = Not at all Not being able to stop or control worryin = Not at all Worrying too much about different things: 0 = Not at all Trouble relaxin = Not at all Being so restless that it is hard to sit still: 0 = Not at all Becoming easily annoyed or irritable: 0 = Not at all Feeling afraid as if something awful might happen: 0 = Not at all Total SACHIN-7 score (0-4 normal; 5-9 mild; 10-14 moderate; 15-21 severe): 0 Source: Developed by Drs. Lio Ogden, Mildred Paez, Gen almanza nd colleagues, with an educational radha from [employer]. Physical exam (Primary Care) Vital Signs: Last Vital Signs Pulse 65 07/24/24 10:07 BP 138/82 07/24/24 10:07 Pulse Ox 96 07/24/24 10:07 Oxygen Delivery Method Room Air 07/24/24 10:07 BMI result Body Mass Index 30.6 Tobacco/Smoking Status: Tobacco use Status Tobacco use date assessed 05/23/24 07/24/24 10:14 Patient Tobacco Use Status Never used Tobacco 07/24/24 10:14 e-Cigarette/Vaping Use Never Used 07/24/24 10:14 Thrive Assessment: Date of Thrive Assessment Date Thrive assessed 05/23/24 07/24/24 10:14 Currently or been in a relationship where the following occur: I choose not to answer Coding Level of Care Code Est Pt Level 4 (31586) Complex EM visit Add On G2211 Diagnoses Subacute cough R05.2 Cough type: subacute Hypertension, essential I10 Anxiety, generalized F41.1 Dyspepsia R10.13 Gastroesophageal reflux disease without esophagitis K21.9 Esophagitis presence: without esophagitis Chronic pain of both knees M25.561; M25.562; G89.29 Chronicity: chronic Primary osteoarthritis of both knees M17.0 Osteoarthritis type: primary LFT elevation R79.89 Assessment & Plan Assessment & Plan (1) Cough: Code(s): R05.9 - Cough, unspecified Category: Medical Qualifiers: Cough type: subacute Qualified Code(s): R05.2 - Subacute cough (2) Hypertension, essential: Comment: continue medications Code(s): I10 - Essential (primary) hypertension Category: Medical (3) Anxiety, generalized: Comment: continue medications Code(s): F41.1 - Generalized anxiety disorder Category: Medical (4) Dyspepsia: Comment: continue medications Code(s): R10.13 - Epigastric pain Category: Medical (5) GERD (gastroesophageal reflux disease): Code(s): K21.9 - Gastro-esophageal reflux disease without esophagitis Category: Medical Qualifiers: Esophagitis presence: without esophagitis Qualified Code(s): K21.9 - Gastro-esophageal reflux disease without esophagitis (6) Knee pain, bilateral: Code(s): M25.561 - Pain in right knee; M25.562 - Pain in left knee Category: Medical Qualifiers: Chronicity: chronic Qualified Code(s): M25.561 - Pain in right knee; M25.562 - Pain in left knee; G89.29 - Other chronic pain (7) Osteoarthritis of knees, bilateral: Code(s): M17.0 - Bilateral primary osteoarthritis of knee Category: Medical Qualifiers: Osteoarthritis type: primary Qualified Code(s): M17.0 - Bilateral primary osteoarthritis of knee (8) LFT elevation: Code(s): R79.89 - Other specified abnormal findings of blood chemistry Category: Medical Plan Follow-up appointment - The patient is a 59-year-old female presenting with chronic cough. - Duration of the cough is approximately one month, arising with preceding respiratory infections. - The cough is persistent, dry, and without associated respiratory distress. - Management so far includes uzhp-mtr-frhxynw remedies and prescribed nighttime cough syrup for symptomatic relief. - Past medical evaluation showed normal Vitamin D levels; currently advised to take 1000 IU Vitamin D weekly. - Discussed anxiety and depression, with a history of escitalopram use, currently not on medication for these conditions. - hypertension, blood pressure is stable with medication - GERD is stable with H2 blockers PPI Medications - Atenolol for hypertension - Losartan/Hydrochlorothiazide for hypertension - Pantoprazole for gastroesophageal reflux disease (GERD) - Famotidine for GERD - Vitamin D, 1000 IU weekly (previously checked normal levels) - Tbxy-evx-otjlamj cough medication for chronic cough Problem List - Chronic Cough - Gastroesophageal Reflux Disease (GERD) - Hypertension - Anxiety/Depression - obesity Patient Instructions - Continue taking the prescribed nighttime cough syrup to manage cough symptoms. - Use uklt-lll-arjqofm cough medication during the day, taken as needed. - Prepare and drink herbal concoctions such as ian and turmeric tea in the evenings for additional relief. - Vitamin D supplement can be reduced to twice a week at 1000 IU based on previous normal levels. - Return for a follow-up blood test and evaluation as instructed. - Report back if the chronic cough persists beyond two to three weeks or wor sens. - chest x-ray order today Orders: Orders XR chest 2V Today R05.9 - Cough, unspecified Medications: New prednisone 10 mg PO DAILY 7 days 7 tabs 0RF codeine-guaifenesin 10-100 mg/5 mL Only at night 10 mL PO .qhs 14 days PRN 120 mL 0RF cough Discontinued lorazepam One tablet the day of doctor's appointment Discontinued Reason: Doctor's Order 0.5 mg PO DAILY 90 days PRN 14 tabs 0RF anxiety
[2024-07-24 10:07] VITALS: BP 138/82; PULSE 65; O2SAT 96; BMI 30.6
== END 2024-07-24 10:25 | disposition home or self-care (01) ==
PROVIDERS: PCP Internal Medicine; Visit Provider Internal Medicine
DX: R05.2 Subacute cough (principal); I10 Essential (primary) hypertension; F41.1 Generalized anxiety disorder; R10.13 Epigastric pain; K21.9 Gastro-esophageal reflux disease without esophagitis; M25.561 Pain in right knee; M25.562 Pain in left knee; G89.29 Other chronic pain; M17.0 Bilateral primary osteoarthritis of knee; R79.89 Other specified abnormal findings of blood chemistry

== ENCOUNTER → 2024-07-24 10:29 | Outpatient (BNV) | payer OTHER, SELFPAY | PROVIDERS: PCP Internal Medicine; Visit Provider Radiology Diagnostic Radiology | DX: R05.9 Cough, unspecified (principal) | CPT/HCPCS: 71046 ==

== ENCOUNTER 2024-07-26 10:48 | Outpatient (AMB) | payer OTHER, SELFPAY ==
--- NOTE | 2024-07-26 11:00 | MHC.OFFVIS ---
Intake Visit Reasons: INJ B/L Knee Euflexxa gel Injections #3 Intake Note: Jyoti is a 59 year old female who presents today for her bilateral Euflexxa gel injections #3. Patient reports she is feeling little to no pain at the moment. She mentions that she is having a little trouble fully bending her knees. Allergies No Known Allergies [No Known Allergies*] Allergy (Verified 07/26/24 11:01) HPI HPI INJ B/L Knee Euflexxa gel Injections #3: Details: Patient presents to the office today for 3rd Euflexxa injection of bilateral knees. She reports that she is feeling some relief. Still has some increased pain with range of motion with flexion. [facility] Medical History Microcytic anemia Normal colonoscopy Low hematocrit Dyspepsia Anxiety, generalized Hypertension, essential Surgical History Hx of colonoscopy (~10/2014) Family History Father Heart attack Mother Hepatitis C HTN (hypertension) Social History Household Members Other:: . 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 Crepitus felt with range of motion. Tenderness to palpation medial and lateral joint lines bilaterally which is mild. Negative Kari. Negative anterior drawer. NVI. Office Procedures AMB Joint Injection/Aspiration Joint Injection/Aspiration Primary Site: right knee Secondary Site: left knee Prep: site was prepped using aseptic technique, ethochloride spray was applied and injection warnings given Injected: other (Euflexxa #3) Approach Used: anterolateral Procedure: The patient tolerated the procedure well, but had some pain with the injection and there was some relief with the local anesthesia Coding 22327 - Large joint Procedure code (CPT) selection complete Assessment & Plan Assessment & Plan (1) Osteoarthritis of knees, bilateral: Code(s): M17.0 - Bilateral primary osteoarthritis of knee Category: Medical Qualifiers: Osteoarthritis type: primary Qualified Code(s): M17.0 - Bilateral primary osteoarthritis of knee Plan The patient was offered a Euflexxa #3 injection in bilateral knees. The patient was explained the risks, benefits, and alternatives to receiving this injection. After receiving consent for the injection, the patient had the procedure done while in the office today. The patient tolerated the procedure well with no complications. Follow-up will be p.r.n., or sooner if needed Coding Level of Care Code Procedure Only Diagnoses Primary osteoarthritis of both knees M17.0 Osteoarthritis type: primary CPT Codes Coding - 83513 Large joint: 28447 - Large joint ([id number])
== END 2024-07-26 11:22 | disposition home or self-care (01) ==
PROVIDERS: PCP Internal Medicine; Visit Provider Physician Assistant
DX: M17.0 Bilateral primary osteoarthritis of knee (principal)
CPT/HCPCS: 20610

== ENCOUNTER → 2024-07-26 10:48 | Outpatient (BNVA) | payer OTHER, SELFPAY | PROVIDERS: PCP Internal Medicine; Visit Provider Physician Assistant | DX: M17.0 Bilateral primary osteoarthritis of knee (principal) | CPT/HCPCS: 20610; J7323 ==

== ENCOUNTER 2024-09-14 09:31 | Outpatient (AMB) | payer OTHER, SELFPAY ==
--- NOTE | 2024-09-14 09:42 | A.OFFPC_ITS ---
Vital Signs 09/14/24 09:45 Height 5 ft 4 in Weight 190 lb 6 oz BMI 32.7 BP 120/80 Blood Pressure Location Lt brachial Position Sitting Respiration 16 Pulse 60 Pulse Source Pulse Oximeter Temp 98 F Temp Source Oral Pulse Oximetry (%) 96 Oxygen Delivery Method Room Air Intake Visit Reasons: persistant cough Mold Inspector Required: No Allergies No Known Allergies [No Known Allergies*] Allergy (Verified 09/14/24 09:47) Medication List - Last Reviewed 09/14/24 by Lilian Thomas MA atenolol 100 mg PO DAILY 90 days cholecalciferol (vitamin D3) 25 mcg PO DAILY 90 days escitalopram oxalate (Lexapro) 10 mg PO DAILY famotidine 40 mg PO .q am 90 days losartan-hydrochlorothiazide 100-25 mg 1 tab PO DAILY multivitamin 1 cap PO DAILY pantoprazole 40 mg PO BEDTIME Tobacco use date assessed: 09/14/24 Dental Screening Dental Screen Date: 09/14/24 Did you have a dental visit in the last 12 months?: Yes Did you have a dental problem in the last 6 months where you did not have access to dental care?: No Was dental information given to patient?: Patient has dentist HPI persistant cough HPI Details History - The patient is a 59-year-old female pr esenting for the evaluation and management of elevated liver enzymes and chronic cough. - Elevated liver enzymes were identified from a blood test conducted in April, where moderate liver swelling was observed. - There is a history of chronic cough, s jacklyn past 4 months not responding to PPI H2 blockers or cough medicine There is no signs of infection no shortness a breath except when coughing - The patient has a background of knee p ain, managed previously with injections Anxiety stable, blood pressure is well-controlled today Medications - Continued use of Losartan/Hydrochlorot hiazide 100/25 mg for the management of Essential Hypertension. - Tylenol (acetaminophen) has been minim ized by the patient. - Famotidine 40 mg and Pantoprazole 40 m g for the management of acid and stomach-related issues. - continue Lexapro Problem List - Elevated Liver Enzymes - Chronic Cough - Knee Pain - Essential Hypertension - anxiety - swelling around face and feet [place] of Care - The patient will follow up with Dr. Saad szymanski for the evaluation of potential stomach issues. She has seen her in 2020 - The patient is advised to see Dr. Juno almanza for the management and further evaluation of the persistent cough. - Blood tests and chest x-ray are ordere d for additional insights into current health status. Patient Instructions - Complete the blood test and chest x-ra y as ordered. - Follow up with Dr. Herrera for potential stomach examination. - Schedule an appointment with Dr. Deleon environmental resource specialist - Continue current medications as prescr ibed. - Report any new symptoms or worsening o f current symptoms as soon as they arise. Review of Systems General: No fever no chills neurological: No headaches no dizziness ear nose throat: No sore throat no hearing difficulty no ear pain cardiovascular: No syncope, no chest pain, no palpitations gastrointestinal: No nausea vomiting or diarrhea endocrine: No polyuria polydipsia no heat intolerance genitourinary: No dysuria skin: No new complaints Physical Exam general: No acute distress HEENT: No acute findings neck: Supple respiratory system: Lungs sound clear, no audible wheeze, no stridor cardiovascular: S1-S2 gastrointestinal: Liver was a little swollen in April extremities: No new findings 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 1. Little interest or pleasure in doing things: not at all 2. Feeling down, depressed, or hopeless: not at all 3. Trouble falling or staying asleep, or sleeping too much: not at all 4. Feeling tired or having little energy: not at all 5. Poor appetite or overeating: not at all 6. Feeling bad about yourself - or that you are a failure or have let yourself or your family down: not at all 7. Trouble concentrating on things, such as reading the newspaper or watching television: not at all 8. Moving or speaking so slowly that other people could have noticed. Or the opposite - being so fidgety or restless that you have been moving around a lot more than usual: not at all 9. Thoughts that you would be better off or of hurting yourself in some way: not at all Total score: 0 Depression Screening Interpretation: Negative Depression Screening Done: Yes 13036 - PHQ-9 Billing: Yes Source: Developed by Drs. Lio Ogden, Mildred Paez, Gen Butler and colleagues, with an educational radha from [employer]. Thrive Questionnaire Date Thrive assessed: 09/14/24 I am a: Patient What is your living situation today?: I choose not to answer this question Within the past 12 months, did the food you bought not last and you didn't have the money to get more?: I choose not to answer this question Within the past 12 months, did you worry whether your food would run out before you got money to buy more?: I choose not to answer this question Do you have trouble paying for medicines?: I choose not to answer this question Do you have trouble getting transportation to medical appointments?: I choose not to answer this question Do you have trouble paying your heating and electricity bill?: I choose not to answer this question Do you have trouble taking care of your child, family member or friend?: I choose not to answer this question Do you have trouble with day-to-day activities such as bathing, preparing meals, shopping, managing finances, etc.?: I choose not to answer this question Are you currently unemployed and looking for a job?: I choose not to answer this question Are you interested in more education?: I choose not to answer this question Please select the resources that you would like help with: None Currently or been in a relationship where the following occur: I choose not to answer THRIVE Score: 0 AUDIT C Alcohol Use Questionnaire (AUDIT-C) 1. How often do you have a drink containing alcohol?: Never 3. How often do you have six or more drinks on one occasion?: Never Total Score: 0 Score Reviewed/Action Taken: Yes SACHIN-7 AMB Questionnaire SACHIN-7 Date SACHIN - 7 assessed: 09/14/24 Feeling nervous, anxious, or on edge: 0 = Not at all Not being able to stop or control worryin = Not at all Worrying too much about different things: 0 = Not at all Trouble relaxin = Not at all Being so restless that it is hard to sit still: 0 = Not at all Becoming easily annoyed or irritable: 0 = Not at all Feeling afraid as if something awful might happen: 0 = Not at all Total SACHIN-7 score (0-4 normal; 5-9 mild; 10-14 moderate; 15-21 severe): 0 Source: Developed by Drs. Lio Ogden, Mildred Paez, Gen Butler and colleagues, with an educational radha from [employer]. SACHIN-7 Assessment Billing SACHIN-7 Assessment Tool: SACHIN-7 Assessment 57244 Physical exam (Primary Care) Vital Signs: Last Vital Signs Temp 98 F 09/14/24 09:45 Pulse 60 09/14/24 09:45 Resp 16 09/14/24 09:45 BP 120/80 09/14/24 09:45 Pulse Ox 96 09/14/24 09:45 Oxygen Delivery Method Room Air 09/14/24 09:45 BMI result Body Mass Index 32.7 Tobacco/Smoking Status: Tobacco use Status Tobacco use date assessed 09/14/24 09/14/24 09:48 Patient Tobacco Use Status Never used Tobacco 09/14/24 09:44 e-Cigarette/Vaping Use Never Used 09/14/24 09:44 PHQ-9: PHQ-9 Score PHQ-9: Total score 0 09/14/24 11:41 Depression Screening Interpretation: Negative Thrive Assessment: Date of Thrive Assessment Date Thrive assessed 09/14/24 09/14/24 09:48 Currently or been in a relationship where the following occur: I choose not to answer Results Reviewed Results Reviewed: Laboratory Tests 09/14/24 10:19 AST 62 H ALT 45 H Alkaline Phosphatase 133 H Total Protein 8.2 H Coding Level of Care Code Est Pt Level 5 (71027) Diagnoses Persistent cough R05.3 Part of body swollen R60.9 LFT elevation R79.89 Hypertension, essential I10 Anxiety, generalized F41.1 Dyspepsia R10.13 Microcytic anemia D50.9 Gastroesophageal reflux disease without esophagitis K21.9 Esophagitis presence: without esophagitis Chronic constipation K59.09 Primary osteoarthritis of both knees M17.0 Osteoarthritis type: primary Additional Codes SACHIN-7 Assessment Billing - SACHIN-7 Assessment Tool: SACHIN-7 Assessment 70896 ([id number]) PHQ-9 - 06928 - PHQ-9 Billing: Yes ([id number]) Time Spent (min) 40 Comment Visit problems and management discussed with patient as well as her son Assessment & Plan Assessment & Plan (1) Persistent cough: Code(s): R05.3 - Chronic cough Category: Medical (2) Part of body swollen: Code(s): R60.9 - Edema, unspecified Category: Medical (3) LFT elevation: Code(s): R79.89 - Other specified abnormal findings of blood chemistry Category: Medical (4) Hypertension, essential: Comment: continue medications Code(s): I10 - Essential (primary) hypertension Category: Medical (5) Anxiety, generalized: Comment: continue medications Code(s): F41.1 - Generalized anxiety disorder Category: Medical (6) Dyspepsia: Comment: continue medications Code(s): R10.13 - Epigastric pain Category: Medical (7) Microcytic anemia: Code(s): D50.9 - Iron deficiency anemia, unspecified Category: Medical (8) GERD (gastroesophageal reflux disease): Code(s): K21.9 - Gastro-esophageal reflux disease without esophagitis Category: Medical Qualifiers: Esophagitis presence: without esophagitis Qualified Code(s): K21.9 - Gastro-esophageal reflux disease without esophagitis (9) Chronic constipation: Code(s): K59.09 - Other constipation Category: Medical (10) Osteoarthritis of knees, bilateral: Code(s): M17.0 - Bilateral primary osteoarthritis of knee Category: Medical Qualifiers: Osteoarthritis type: primary Qualified Code(s): M17.0 - Bilateral primary osteoarthritis of knee Plan History - The patient is a 59-year-old female presenting for the evaluation and management of elevated liver enzymes and chronic cough. - Elevated liver enzymes were identified from a blood test conducted in April, where moderate liver swelling was observed. - There is a history of chronic cough, since past 4 months not responding to PPI H2 blockers or cough medicine There is no signs of infection no shortness a breath except when coughing - The patient has a background of knee pain, managed previously with injections Anxiety stable, blood pressure is well-controlled today Medications - Continued use of Losartan/Hydrochlorothiazide 100/25 mg for the management of Essential Hypertension. - Tylenol (acetaminophen) has been minimized by the patient. - Famotidine 40 mg and Pantoprazole 40 mg for the management of acid and stomach-related issues. - continue [facility] Problem List - Elevated Liver Enzymes - Chronic Cough - Knee Pain - Essential Hypertension - anxiety - swelling around face and feet [place] of Care - The patient will follow up with Dr. Herrera for the evaluation of potential stomach issues. She has seen her in 2020 - The patient is advised to see Dr. Deleon for the management and further evaluation of the persistent cough. - Blood tests and chest x-ray are ordered for additional insights into current health status. Patient Instructions - Complete the blood test and chest x-ray as ordered. - Follow up with Dr. Herrera for potential stomach examination. - Schedule an appointment with Dr. Deleon environmental resource specialist - Continue current medications as prescribed. - Report any new symptoms or worsening of current symptoms as soon as they arise. Orders: Orders LDL Cholesterol Direct Today D50.9 - Iron deficiency anemia, unspecified, F41.1 - Generalized anxiety disorder, I10 - Essential (primary) hypertension, K21.9 - Gastro-esophageal reflux disease without esophagitis, K59.09 - Other constipation, M17.0 - Bilateral primary osteoarthritis of knee, R05.3 - Chronic cough, R10.13 - Epigastric pain Hepatitis A,B,C Profile Today R60.9 - Edema, unspecified Complete Blood Count Auto Diff Today D50.9 - Iron deficiency anemia, unspecified, F41.1 - Generalized anxiety disorder, I10 - Essential (primary) hypertension, K21.9 - Gastro-esophageal reflux disease without esophagitis, K59.09 - Other constipation, M17.0 - Bilateral primary osteoarthritis of knee, R05.3 - Chronic cough, R10.13 - Epigastric pain Comprehensive Met. Panel Today D50.9 - Iron deficiency anemia, unspecified, F41.1 - Generalized anxiety disorder, I10 - Essential (primary) hypertension, K21.9 - Gastro-esophageal reflux disease without esophagitis, K59.09 - Other constipation, M17.0 - Bilateral primary osteoarthritis of knee, R05.3 - Chronic cough, R10.13 - Epigastric pain XR chest 2V Today R05.3 - Chronic cough
[2024-09-14 09:45] VITALS: BP 120/80; PULSE 60; RESP 16; TEMP 36.6; O2SAT 96; BMI 32.7
== END 2024-09-14 10:07 | disposition home or self-care (01) ==
LOC: HO.HMCC 09:33
PROVIDERS: PCP Internal Medicine; Visit Provider Internal Medicine
DX: R05.3 Chronic cough (principal); R60.9 Edema, unspecified; R79.89 Other specified abnormal findings of blood chemistry; I10 Essential (primary) hypertension; F41.1 Generalized anxiety disorder; R10.13 Epigastric pain; D50.9 Iron deficiency anemia, unspecified; K21.9 Gastro-esophageal reflux disease without esophagitis; K59.09 Other constipation; M17.0 Bilateral primary osteoarthritis of knee

== ENCOUNTER 2024-09-14 09:31 | Outpatient (REF) | payer OTHER, SELFPAY ==
--- NOTE | ~2024-09-14 | XR_ITS ---
EXAMINATION: XR CHEST 2 VIEWS HISTORY: R05.3 - Chronic cough COMPARISON: Comparison is made with the prior examination dated 07/24/2024. FINDINGS: PA and lateral views of the chest are submitted. The lungs are expanded and clear. There is no pleural effusion, pneumothorax, or pulmonary vascular congestion. The heart is normal in size. There is mild degenerative disc disease of the spine. XR/XR chest 2V IMPRESSION: No acute cardiopulmonary abnormality. Electronically signed by: Lio Issa MD 09/14/2024 11:44 AM EDT
[2024-09-14 13:25] LABS: MANUAL DIFF FLAG NO
[2024-09-14 13:35] LABS: Basophils Absolute Auto 0.1 X10*3/uL (0.0-0.2); Basophils Percent Auto 1.3 % (0-2); Eosinophils Absolute Auto 0.5 X10*3/uL (0.0-0.4); Eosinophils Percent Auto 5.1 % (0-4); Hematocrit 45.1 % (37.0-47.0); Hemoglobin 13.9 g/dl (12.0-16.0); Imm Gran Abs Auto 0.03 X10*3/uL (0.00-0.03); Imm Gran Pct Auto 0.3 % (0.0-0.4); Lymphocytes Absolute Auto 3.9 X10*3/uL (1.2-4.9); Lymphocytes Percent Auto 42.7 % (20-40); Mean Corpuscular HGB Conc 30.8 g/dl (31.0-35.0); Mean Corpuscular Hemoglobin 24.6 pg (27.0-33.0); Mean Platelet Volume 11.9 fL (9.4-12.3); Monocytes Absolute Auto 0.8 X10*3/uL (0.1-1.2); Neutrophils Absolute Auto 3.7 x10*3/uL (2.0-8.3); Neutrophils Percent Auto 41.6 % (45-73); Platelet Count 300 X10*3/uL (160-400); Red Blood Count 5.64 X10*6/uL (4.20-5.50); Red Cell Distribution Width 12.8 % (11.0-16.0)
[2024-09-14 13:56] LABS: Alanine Aminotransferase 45 U/L (0-31); Albumin Level 3.7 g/dL (3.5-5.0); Alkaline Phosphatase 133 U/L (39-117); Anion Gap 12 (12-20); Aspartate Amino Transferase 62 U/L (5-31); Bilirubin Total 0.3 mg/dL (0.0-1.0); Blood Urea Nitrogen 13 mg/dL (9-16); Calcium 9.5 mg/dL (8.4-10.2); Carbon Dioxide 24 mmol/L (22-29); Chloride 108 mmol/L (96-108); Estimated Glomerular Filt Rate > 60; Glucose Random 105 mg/dL (60-115); Potassium 4.2 mmol/L (3.3-5.1); Sodium 140 mmol/L (135-145); Total Protein 8.2 g/dL (6.5-8.0)
[2024-09-14 14:08] LABS: HBS Num1 237.71 mIU/mL (0-7.99); HBc Num1 4.16 S/CO (0.00-0.79); HBsAGNum1 0.38 S/CO (0.00-0.99); Hepatitis A Antibody IgM 0.19 Index (0-0.79); Hepatitis B Surface Antigen Negative (Negative); ~HepC Num1 9.62 S/CO (0.00-0.79); ~Hepatitis A Antibody IgM Nonreactive (Nonreactive); ~Hepatitis B Surface Antibody REACTIVE (Nonreactive); ~Hepatitis C Antibody Reactive (Nonreactive)
[2024-09-15 15:58] LABS: HCV Log PCR 6.95 Log IU/mL (NOT DETECTED)
[2024-09-16 07:04] LABS: LDL Cholesterol Direct 86 mg/dL (<100)
[2024-09-17 03:54] LABS: HBc Num2 4.39 S/CO; HBc Num3 4.18 S/CO; Hepatitis B Core Antibody Reactive (Nonreactive)
== END 2024-09-14 09:32 | disposition home or self-care (01) ==
LOC: HO.HMGCX 09:31
PROVIDERS: PCP Internal Medicine; Visit Provider Internal Medicine
DX: R05.3 Chronic cough (principal); R60.9 Edema, unspecified; R79.89 Other specified abnormal findings of blood chemistry; I10 Essential (primary) hypertension; F41.1 Generalized anxiety disorder; R10.13 Epigastric pain; D50.9 Iron deficiency anemia, unspecified; K21.9 Gastro-esophageal reflux disease without esophagitis; K59.09 Other constipation; M17.0 Bilateral primary osteoarthritis of knee; R76.8 Other specified abnormal immunological findings in serum; Z79.899 Other long term (current) drug therapy
CPT/HCPCS: 36415; 71046; 80053; 83721; 85025; 86704; 86706; 86709; 86803; 87340; 87522; 96127; 99212

== ENCOUNTER → 2024-09-14 10:09 | Outpatient (BNV) | payer OTHER, SELFPAY | PROVIDERS: PCP Internal Medicine; Visit Provider Radiology Diagnostic Radiology | DX: R05.3 Chronic cough (principal) | CPT/HCPCS: 71046 ==

== ENCOUNTER 2024-09-18 12:33 | Outpatient (AMB) | payer OTHER, SELFPAY ==
--- NOTE | 2024-09-18 12:45 | A.OFFPC_ITS ---
Intake Visit Reasons: Discuss labs Allergies No Known Allergies [No Known Allergies*] Allergy (Verified 09/14/24 09:47) Medication List - Last Reconciled 09/18/24 by Jose Manuel Saleh MD atenolol 100 mg PO DAILY 90 days cholecalciferol (vitamin D3) 25 mcg PO DAILY 90 days escitalopram oxalate (Lexapro) 10 mg PO DAILY famotidine 40 mg PO .q am 90 days losartan-hydrochlorothiazide 100-25 mg 1 tab PO DAILY multivitamin 1 cap PO DAILY pantoprazole 40 mg PO BEDTIME Tobacco use date assessed: 09/14/24 Dental Screening Dental Screen Date: 09/14/24 HPI Discuss labs HPI Details History - The patient is a 59-year-old female pr esenting with abnormal liver function tests. - A diagnosis of active Hepatitis C infe ction has been confirmed through testing. - Liver function tests reveal abnormalit ies suggestive of inflammation or damage, including swelling of the liver. - The source of Hepatitis C may involve prior exposure to contaminated needles. - Discussion emphasized the importance o f addressing the ongoing infection to prevent progression to serious conditions such as liver cancer. Problem List - Hepatitis C infection - Abnormal liver function test Patient Instructions - Schedule an urgent appointment with Dr Roxane Herrera, a center director lead teacher, for further evaluation and treatment planning concerning the liver and Hepatitis C infection. - Be aware that untreated Hepatitis C ca n progress to liver cancer; therefore, timely medical follow-up is crucial. - Understand that Hepatitis C is not typ ically transmitted through casual contact, sharing food, or drink, reducing concern of intra-family transmission through daily activities. - Look out for communication from Dr. Saad szymanski regarding the next steps in treatment and management. Review of Systems - Gastrointestinal: Reports abnormal travis er function tests. - General: No fever no chills - Neurological: No headaches no dizziness - Ear nose throat: No sore throat no hearing difficulty no ear pain - Cardiovascular: No syncope, no chest pain, no palpitations - Gastrointestinal: No nausea vomiting or diarrhea - Endocrine: No polyuria polydipsia no heat intolerance - Genitourinary: No dysuria , no blood in urine [facility] Medical History Microcytic anemia Normal colonoscopy Low hematocrit Dyspepsia Anxiety, generalized Hypertension, essential Surgical History Hx of colonoscopy (~10/2014) Family History Father Heart attack Mother Hepatitis C HTN (hypertension) Social History Household Members Other:: . 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 Lio Ogden, Mildred Paez, Gen Butler and colleagues, with an educational radha from [employer]. Physical exam (Primary Care) Tobacco/Smoking Status: Tobacco use Status Tobacco use date assessed 09/14/24 09/14/24 09:48 Patient Tobacco Use Status Never used Tobacco 09/14/24 09:44 e-Cigarette/Vaping Use Never Used 09/14/24 09:44 Thrive Assessment: Date of Thrive Assessment Date Thrive assessed 09/14/24 09/14/24 09:48 Telehealth Telehealth Telehealth Platform: [facility] Location of provider rendering services: practice address Location of patient: address on file Patient Identification confirmed using: Name, : Yes Telehealth method: voice only Patient verbally consented to treatment: Yes Patient verbally consented to billing insurance company: Yes Patient informed of any privacy concerns related to visit: Yes Minutes spent on Phone/Video with Pt.: 13 Coding Level of Care Code Tele Est Pt Level 3 (59791) Diagnoses Acute hepatitis C virus infection without hepatic coma B17.10 Viral hepatitis chronicity: acute Hepatic coma status: without hepatic coma Facial swelling R22.0 Edema, lower extremity R60.0 Assessment & Plan Assessment & Plan (1) Hepatitis C infection: Code(s): B19.20 - Unspecified viral hepatitis C without hepatic coma Category: Medical Qualifiers: Viral hepatitis chronicity: acute Hepatic coma status: without hepatic coma Qualified Code(s): B17.10 - Acute hepatitis C without hepatic coma (2) Facial swelling: Code(s): R22.0 - Localized swelling, mass and lump, head Category: Medical (3) Edema, lower extremity: Code(s): R60.0 - Localized edema Category: Medical Plan History - The patient is a 59-year-old female presenting with abnormal liver function tests. - A diagnosis of active Hepatitis C infection has been confirmed through testing. - Liver function tests reveal abnormalities suggestive of inflammation or damage, including swelling of the liver. - The source of Hepatitis C may involve prior exposure to contaminated needles. - Discussion emphasized the importance of addressing the ongoing infection to prevent progression to serious conditions such as liver cancer. Problem List - Hepatitis C infection - Abnormal liver function test Patient Instructions - Schedule an urgent appointment with Dr. Herrera, a center director lead teacher, for further evaluation and treatment planning concerning the liver and Hepatitis C infection. - Be aware that untreated Hepatitis C can progress to liver cancer; therefore, timely medical follow-up is crucial. - Understand that Hepatitis C is not typically transmitted through casual contact, sharing food, or drink, reducing concern of intra-family transmission through daily activities. - Look out for communication from Dr. Herrera regarding the next steps in treatment and management.
== END 2024-09-18 13:06 | disposition home or self-care (01) ==
LOC: HO.HMCC 12:33
PROVIDERS: PCP Internal Medicine; Visit Provider Internal Medicine
DX: B17.10 Acute hepatitis C without hepatic coma (principal); R22.0 Localized swelling, mass and lump, head

== ENCOUNTER 2024-09-25 12:20 | Outpatient (REF) | payer OTHER, SELFPAY ==
[2024-09-25 15:09] LABS: INTERNATIONAL NORM RATIO 1.1 (0.9-1.1); Prothrombin Time 12.4 SEC (10.9-12.4)
[2024-09-25 18:04] LABS: Ferritin 19 ng/mL (10-250)
[2024-09-26 08:06] LABS: Hepatitis A Antibody IgG REACTIVE (Nonreactive)
[2024-09-26 08:08] LABS: HIV AB/AG Nonreactive (Nonreactive); HIV Num 1 0.06 S/CO (0.00-0.99)
[2024-09-29 09:33] LABS: Hepatitis C Genotype 3
[2024-10-01 01:28] LABS: FIB-ALT 42 U/L (6-29); FIB-Alpha-2-Macroglobulin 369 mg/dL (106-279); FIB-Apolipoprotein A1 178 mg/dL (101-198); FIB-GGT 95 U/L (3-65); FIB-Haptoglobin 102 mg/dL (43-212); FIB-Total Bilirubin 0.5 mg/dL (0.2-1.2); Liver Fibrosis Score 0.56; Liver Fibrosis Stage F2; Nec Inflam Act Grade A1; Nec Inflam Act Score 0.31; Reference ID 5420869
== END 2024-09-25 12:21 | disposition home or self-care (01) ==
LOC: HO.LAB 12:20
PROVIDERS: PCP Internal Medicine; Visit Provider Internal Medicine Gastroenterology
DX: B17.10 Acute hepatitis C without hepatic coma (principal)
CPT/HCPCS: 36415; 81596; 82728; 85610; 86708; 87389; 87902; 99202

== ENCOUNTER 2024-09-25 12:20 | Outpatient (AMB) | payer OTHER, SELFPAY ==
--- NOTE | 2024-09-25 13:01 | MHC.OFFVIS ---
Vital Signs 09/25/24 13:05 Weight 176 lb 5.917 oz BP 186/78 H Blood Pressure Location Lt brachial Position Sitting Pulse 63 Intake Visit Reasons: HCV positive Intake Note: Jyoti presents in the office as a new patient re establish care for HCV positive. CC: She states that she is not having any GI concerns. Tabulating Machine Mechanic Required: Yes Tabulating Machine Mechanic Name: Stephanie Dubois [id number] Allergies No Known Allergies [No Known Allergies*] Allergy (Verified 10/18/24 08:15) Medication List - Last Reconciled 09/25/24 by Lobo Herrera MD atenolol 100 mg PO DAILY 90 days bromfenac 0.09% 1 drp ophthalmic (eye) DAILY cholecalciferol (vitamin D3) 25 mcg PO DAILY 90 days escitalopram oxalate (Lexapro) 10 mg PO DAILY famotidine 40 mg PO .q am 90 days losartan-hydrochlorothiazide 100-25 mg 1 tab PO DAILY multivitamin 1 cap PO DAILY ofloxacin 0.3% drps ophthalmic (eye) pantoprazole 40 mg PO BEDTIME HPI HPI HCV positive: Details: GI Clinic visit for this 59-year-old female referred by Dr Hill for evaluation of Hep C. Pt was last seen in Jun, 2020 TODAY'S VISIT: Elevated LFTs for the past several years and positive Hep C ab (Hep C viral load of 8930 K on 09/14/24) Intermittent spontaneous bleeding and swelling of face and feet off and on for the past several months Also complains of dry month Complains of dry cough for the past several months Complains of intermittent heartburn and takes Pantoprazole 40 mg at bedtime for GERD. Complains of abdominal pain before a BM and improves after a BM Taking Figs every day with improvement in constipation Denies change in appetite. Admits to wt gain Had a blood transfusion 4-5 years ago for severe iron def anemia Pt states her Mom had Hepatitis 15 to 16 yrs ago and she was checked and was negative at that time. Scheduled for EGD and Colon on 05/30/20 and cancelled the appt since she was feeling better - discussed importance of proceeding with GI evaluation. Complains of worsening fatigue for the past 2 yrs. Initially legs felt weak followed by arm weakness. Noted postprandial heaviness and heartburn. Intermittent dizziness and palpitations. Notes bleeding from gums. Complains of pain in the shoulders and legs. Complains of intermittent constipation and abdominal bloating. Worsening constipation since she started taking oral iron (takes 1-2 tab twice a day) Blood transfusion 2 months ago. Thinks she has lost 4-5 lbs. Complains of decreased appetite. Patient denies major cardiac or pulmonary problems, loud snoring or sleep apnea Denies problems with anesthesia in the past. Denies being on chronic anticoagulation. Patient denies known family history of colon polyps, colon cancer or other GI malignancies. PAST VISITS: Jyoti Beaver is a pleasant 55 year old lady, Tells me that she felt rather fatigued over a month ago. While doing her housework, she noted her legs were getting weak. even walking a few steps made her feel exhausted. She had to stop. Subsequently she noted a same thing happening to her arms. one-day she passed out. She went to her primary. labs revealed a hemoglobin of 6.2. she was advised to go to the emergency room right away. The patient was actually on her way to visit her sister in [place], so she elected to go to the ER there. There, the hemoglobin was repeated and was confirmed to be 6.2. She was there overnight. she was given a couple of units of blood and then discharged the next day. Subsequently she was placed on oral iron. She has noted her stool color to be black. She does not know if it was black previous to that since she did not pay much attention. She denies any past history of a similar episode. Denies any known family history of anemia or GI issues. She went through menopause about a year ago . IMAGING STUDIES: no recent GI imaging studies in [facility] ENDOSCOPIC STUDIES: 10/2014 colonoscopy was performed by Dr. Marcial - 2 diminutive polyps were removed found to be lymphoid follicles on biopsy [facility] Medical History (Updated 10/18/24 @ 08:13 by Lobo Herrera MD) Microcytic anemia Normal colonoscopy Low hematocrit Dyspepsia Anxiety, generalized Hypertension, essential Surgical History Hx of colonoscopy (~10/2014) Family History Father Heart attack Mother Hepatitis C HTN (hypertension) Social History Household Members Other:: . 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 Cognitive needs: No Hearing needs: No Vision needs: Yes Review of Systems Const All systems reviewed & are unremarkable except as noted in HPI and below Physical Exam Vital Signs: Last Vital Signs Pulse 63 09/25/24 13:05 BP 186/78 H 09/25/24 13:05 Const General: healthy appearing and no acute distress Nutritional Appearance: obese Orientation/consciousness: patient oriented x3 Limitations: language barrier HEENT Head: Yes normal to inspection Ears: hearing grossly normal bilaterally Mouth: Normal oral and palatal mucosa present Eyes Sclerae: sclerae normal Pupils: Equal, round and reactive pupils present Neck Neck: Yes normal visual inspection Chest Chest palpation & inspection: normal inspection of the chest Resp Effort & Inspection: normal respiratory effort Auscultation: clear to auscultation bilaterally Cardio Palpation: normal PMI Rate: regular rate Rhythm: regular rhythm Heart sounds: S1 normal heart sound present, S2 normal heart sound present and no murmurs GI Palpation (GI): Soft to palpation, nontender and No hepatosplenomegaly present Auscultation: normal bowel sounds Rectal Exam - Female: deferred Skin General skin exam: no rashes or lesions noted Neuro General: patient oriented x3, gait normal and moves all extremities Cranial nerves: Yes Equal, round and reactive pupils present Psych Appearance: grossly normal Mental Status: mental status grossly normal Assessment & Plan Assessment & Plan (1) GERD (gastroesophageal reflux disease): Code(s): K21.9 - Gastro-esophageal reflux disease without esophagitis Category: Medical Qualifiers: Esophagitis presence: without esophagitis Qualified Code(s): K21.9 - Gastro-esophageal reflux disease without esophagitis (2) Iron deficiency anemia: Code(s): D50.9 - Iron deficiency anemia, unspecified Category: Medical (3) Chronic constipation: Code(s): K59.09 - Other constipation Category: Medical (4) LFT elevation: Code(s): R79.89 - Other specified abnormal findings of blood chemistry Category: Medical (5) Hepatitis C antibody positive: Code(s): R76.8 - Other specified abnormal immunological findings in serum Category: Medical (6) Edema, lower extremity: Code(s): R60.0 - Localized edema Category: Medical (7) Hepatitis C infection: Code(s): B19.20 - Unspecified viral hepatitis C without hepatic coma Category: Medical Qualifiers: Hepatic coma status: without hepatic coma Viral hepatitis chronicity: acute Qualified Code(s): B17.10 - Acute hepatitis C without hepatic coma Plan 59 year-old [place] female with hypertension. Patient was seen at [facility] (in [place]) in 03/2020 for severe iron deficiency anemia and received blood transfusion. She has been taking oral iron since then with resolution of anemia. She is post menopausal for the past 5.5 years. Patient complains of postprandial fullness, heartburn and intermittent constipation. Patient was scheduled for an upper endoscopy and colonoscopy on 05/30/2020. She canceled her appointment since she was feeling better. Iron deficiency anemia can be due to upper GI source - erosive esophagitis, hiatal hernia with ulcers, gastritis or peptic ulcer disease, NSAID related small bowel ulcers. Also need to rule out a lower GI source for her anemia - large polyp, colonic AVM. Patient is willing to reschedule her appointment for EGD and colonoscopy for further evaluation of iron deficiency anemia. Patient was advised to continue oral iron and vitamin C once a day and stop 1 week before her EGD and Colon appt. 09/25/24 Pt seen for elevated LFTS and positive Hep C antibody with viral load of 89.3 million IU/ml I will check hep C genotype Patient has been counseled on vaccinations against Hepatitis A and B, Consents to vaccination if not immune patient to review literature about Hep C, medication/treatment, Follow up in 3 weeks to discuss results of labwork, and to decide with MD if treatment will be started Notes: Pt is immune to Hep A and B ? Orders: Orders Liver Fibrosis Pnl 09/25/24 B17.10 - Acute hepatitis C without hepatic coma HIV Ab/Ag 09/25/24 B17.10 - Acute hepatitis C without hepatic coma US abdomen complete 09/25/24 B17.10 - Acute hepatitis C without hepatic coma Hepatitis C Genotype 09/25/24 B17.10 - Acute hepatitis C without hepatic coma Prothrombin Time INR 09/25/24 B17.10 - Acute hepatitis C without hepatic coma Ferritin 09/25/24 B17.10 - Acute hepatitis C without hepatic coma Hepatitis A IgG 09/25/24 B17.10 - Acute hepatitis C without hepatic coma Coding Level of Care Code New Pt Level 4 (92444) Diagnoses Gastroesophageal reflux disease without esophagitis K21.9 Esophagitis presence: without esophagitis Iron deficiency anemia D50.9 Chronic constipation K59.09 LFT elevation R79.89 Hepatitis C antibody positive R76.8 Edema, lower extremity R60.0 Acute hepatitis C virus infection without hepatic coma B17.10 Hepatic coma status: without hepatic coma Viral hepatitis chronicity: acute Time Spent (min) 25
[2024-09-25 13:05] VITALS: BP 186/78; PULSE 63
== END 2024-09-25 14:02 | disposition home or self-care (01) ==
LOC: HO.HGI 12:21
PROVIDERS: PCP Internal Medicine; Visit Provider Internal Medicine Gastroenterology
DX: K21.9 Gastro-esophageal reflux disease without esophagitis (principal); D50.9 Iron deficiency anemia, unspecified; K59.09 Other constipation; R79.89 Other specified abnormal findings of blood chemistry; R76.8 Other specified abnormal immunological findings in serum; R60.0 Localized edema; B17.10 Acute hepatitis C without hepatic coma
CPT/HCPCS: 99204

== ENCOUNTER 2024-10-09 15:30 | Outpatient (AMB) | payer OTHER, SELFPAY ==
--- NOTE | 2024-10-09 15:31 | MHC.OFFVIS ---
Vital Signs 10/09/24 15:33 Height 5 ft 4 in Weight 178 lb 9.191 oz BMI 30.6 BP 142/80 H Blood Pressure Location Lt brachial Position Sitting Pulse 73 Pulse Source Pulse Oximeter Pulse Oximetry (%) 94 Oxygen Delivery Method Room Air Intake Visit Reasons: chronic cough Allergies No Known Allergies [No Known Allergies*] Allergy (Verified 10/09/24 15:36) HPI HPI chronic cough: Details: 59 YEARS OLD FEMALE , ORIGINALLY FROM [place] , , LIVES WITH HER SON( VASYL ) AND [id number] , PRESENTS WITH HISTORY OF ONGOING COUGH FOR THE LAST SEVERAL MONTHS. SHE DID NOT HAVE ANY DISTINCT BOUT OF RESPIRATORY INFECTION BEFORE THE ONSET OF COUGH. SHE IS NOT A SMOKER, AND DOES NOT USE ANY IRRITANTS. SHE DOES HAVE HISTORY OF GERD WHICH IS BEING TREATED WITH PANTOPRAZOLE 40 MG OR FAMOTIDINE 40 MG DAILY, BUT SHE DOES ADMIT THAT SHE FORGETS TO TAKE THIS MEDICINE ON FREQUENT DAYS. SHE DOES HAVE MILD NASAL CONGESTION AND INTERMITTENT BOUTS OF SNEEZING., HAS USED ALLERGY PILL LIKE CLARITIN ONCE IN A WHILE. SHE IS NOT ON ANY HENRY INHIBITOR. FOR HYPOTENSION SHE USES LOSARTAN-HYDROCHLOROTHIAZIDE 1 PILL A DAY. SHE DOES HAVE MILD DEPRESSION AND TAKES LEXAPRO 10 MG DAILY SHE DENIES ANY HISTORY OF BRONCHIAL ASTHMA OR CHRONIC BRONCHITIS IN THE PAST. THE COUGH IS MOSTLY DRY, WORSE AT NIGHT, AND SOMETIME SHE GETS A PERSISTENT BOUT OF COUGH AT NIGHT. SHE IS NOT AWARE OF ANY PRECIPITATING FACTORS. SHE HAS NOT USED ANY COUGH MEDICINE ON AN ONGOING BASIS, AND HAS NOT USED ANY BRONCHODILATOR INHALERS. FOR[facility]LY [facility], [facility] Medical History Microcytic anemia Normal colonoscopy Low hematocrit Dyspepsia Anxiety, generalized Hypertension, essential Surgical History Hx of colonoscopy (~10/2014) Family History Father Heart attack Mother Hepatitis C HTN (hypertension) Social History Household Members Other:: . 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 Cognitive needs: No Hearing needs: No Vision needs: Yes Review of Systems Const All systems reviewed & are unremarkable except as noted in HPI and below Eyes Reports no additional complaints ENT Reports nasal congestion, Reports nasal discharge (MILD OFF AND ON) and Reports other (COMPLAINS OF DRY MOUTH AND LOWER LIP) Card Denies chest pain at rest, Denies diaphoresis, Denies irregular heart rhythm and Denies leg edema Resp Reports as per HPI GI Reports dyspepsia and Reports heartburn Reports no additional complaints Musc Reports no additional complaints Skin/Breast Reports system reviewed and no additional complaints, except as documented Neuro Reports no additional complaints Psych Reports depression (BEING TREATED WITH MED) Endo Reports no additional complaints Dell/Lymph Reports other (HISTORY OF MICROCYTIC ANEMIA) Aller/Immun Reports no additional complaints Physical Exam Vital Signs: Last Vital Signs Pulse 73 10/09/24 15:33 BP 142/80 H 10/09/24 15:33 Pulse Ox 94 10/09/24 15:33 Oxygen Delivery Method Room Air 10/09/24 15:33 BMI result Body Mass Index 30.6 Const General: healthy appearing, comfortable, no acute distress, alert and awake Orientation/consciousness: patient oriented x3 HEENT Head: Yes normal to inspection General nose exam: No nasal polyps present and No nasal discharge present Face and sinus: Yes sinuses nontender Mouth: oropharynx normal Throat: Yes posterior oropharynx normal Eyes General: appearance normal, both eyes and all related structures Neck Neck: Yes normal visual inspection, Yes no lymphadenopathy, Yes trachea midline and Yes no JVD Thyroid: Thyroid normal Chest Chest palpation & inspection: normal inspection of the chest, normal palpation of entire chest wall and no tenderness Resp Effort & Inspection: normal respiratory effort Auscultation: clear to auscultation bilaterally, no crackles and no wheezes Cardio Palpation: normal PMI Rate: regular rate Rhythm: regular rhythm Heart sounds: no gallops and no murmurs GI Palpation (GI): Soft to palpation, nontender, No hepatosplenomegaly present and no masses Auscultation: normal bowel sounds Back/Spine/Pelvis Thoracic/Lumbar Spine: thoracic and lumbar spine normal to inspection Skin General skin exam: no rashes or lesions noted Neuro General: patient oriented x3 and no focal motor deficits Cranial nerves: Yes CN's II-XII intact bilaterally Extrem General: Yes normal to inspection, Yes no clubbing, cyanosis or edema and Yes no calf tenderness Psych Appearance: grossly normal and well kempt Speech and movement: Normal speech and movement present Results Reviewed Results Reviewed: CHEST XRAY , NORMAL Assessment & Plan Assessment & Plan (1) Persistent cough: Comment: CHRONIC, PERSISTANT COUGH , MOST LIKELY SEC TO UPPER AIRWAYS HYPERSENSITIVITY/ COUGH VARIENT ASTHMA Code(s): R05.3 - Chronic cough Category: Medical Plan: DISCUSSED WITH THE PATIENT AND HER SON IN DETAIL. NEXT STEP IS PULMONARY FUNCTION TEST, ADVISED TO USE ALBUTEROL HFA 2 PUFFS Q 6 HOURS P.R.N. IF THERE IS ANY PERSISTENT BOUT OF COUGH. WILL ORDER A SPACER DEVICE FOR THE USE OF INHALER. AFTER PULMONARY FUNCTION TEST RESULTS WITH DECIDE TO MODIFIED THE INHALERS . IF PFT IS NEGATIVE, THEN SHE MAY NEED CT SCAN OF THE CHEST AND ALSO BRONCHOSCOPY., TO COMPLETE THE WORKUP FOR CHRONIC COUGH. Orders: Orders PFT pulmonary function test Today R05.3 - Chronic cough Medications: New albuterol sulfate 90 mcg/actuation 2 puffs inhalation Q4-6H PRN 8.5 grams 2RF shortness of breath or wheezing 30 days inhalational spacing device (Aerochamber MV spacer) As directed 1 ea 0RF Coding Level of Care Code New Pt Level 4 (05121) Diagnoses Persistent cough R05.3
[2024-10-09 15:33] VITALS: BP 142/80; PULSE 73; O2SAT 94; BMI 30.6
== END 2024-10-09 16:13 | disposition home or self-care (01) ==
LOC: HO.HPS 15:30
PROVIDERS: PCP Internal Medicine; Visit Provider Internal Medicine
DX: R05.3 Chronic cough (principal)
CPT/HCPCS: 99204

== ENCOUNTER → 2024-10-09 15:30 | Outpatient (BNVA) | payer OTHER, SELFPAY | PROVIDERS: PCP Internal Medicine; Visit Provider Internal Medicine | DX: R05.3 Chronic cough (principal) | CPT/HCPCS: 99202 ==

== ENCOUNTER 2024-10-12 09:03 | Outpatient (REF) | payer OTHER, SELFPAY ==
--- NOTE | ~2024-10-12 | US_ITS ---
CLINICAL HISTORY: B17.10 - Acute hepatitis C without hepatic coma --- Additional Notes or Special Ins tructions: recently diagnosed with Hep C - rule out cirrhosis and ascites US abdomen complete Comparison: None Findings: The visualized pancreas is normal. The aorta and inferior vena cava are normal caliber. The appearance of the liver suggests fatty infiltration without focal lesion. There is no intrahepatic bile duct dilatation. The common duct is 2.3 mm in diameter. The gallbladder is normal. There is no sonographic Latham sign. The main portal vein is antegrade. The right kidney is 10.6 cm in length. The left kidney is 10.1 cm in length. The spleen is normal. No ascites. IMPRESSION: 1. Hepatic steatosis. This document has been electronically signed by: Edward Norman MD on 10/13/2024 09:00:37
== END 2024-10-12 09:04 | disposition home or self-care (01) ==
LOC: HO.HMGCX 09:03
PROVIDERS: PCP Internal Medicine; Visit Provider Internal Medicine Gastroenterology
DX: B17.10 Acute hepatitis C without hepatic coma (principal)
CPT/HCPCS: 76700

== ENCOUNTER → 2024-10-12 09:06 | Outpatient (BNV) | payer OTHER, SELFPAY | PROVIDERS: PCP Internal Medicine; Visit Provider Specialist | DX: K76.0 Fatty (change of) liver, not elsewhere classified (principal); B17.10 Acute hepatitis C without hepatic coma | CPT/HCPCS: 76700 ==

== ENCOUNTER 2024-10-18 08:06 | Outpatient (AMB) | payer OTHER, SELFPAY ==
--- NOTE | 2024-10-18 08:09 | MHC.OFFVIS ---
Vital Signs 10/18/24 08:12 Height 5 ft 4 in Weight 175 lb BMI 30.0 BP 141/67 H Blood Pressure Location Lt brachial Position Sitting Pulse 65 Pulse Oximetry (%) 97 Oxygen Delivery Method Room Air Intake Visit Reasons: HCV Intake Note: Patient follow up for chronic constipation, lab and US results. Patient cc: body aches, abdominal pain on and off. 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 Accompanied by: Son Allergies No Known Allergies [No Known Allergies*] Allergy (Verified 10/18/24 08:15) Medication List - Last Reconciled 10/18/24 by Lobo Herrera MD albuterol sulfate 90 mcg/actuation 2 puffs inhalation Q4-6H PRN 30 days atenolol 100 mg PO DAILY 90 days escitalopram oxalate (Lexapro) 10 mg PO DAILY famotidine 40 mg PO .q am 90 days inhalational spacing device (Aerochamber MV spacer) As directed losartan-hydrochlorothiazide 100-25 mg 1 tab PO DAILY multivitamin 1 cap PO DAILY ofloxacin 0.3% drps ophthalmic (eye) pantoprazole 40 mg PO BEDTIME HPI HPI HCV: Details: GI Clinic visit for this 59-year-old female seen for FU of Hep C. TODAY'S VISIT: Patient is accompanied by her son. Patient follow up for chronic constipation, lab and US results. Patient cc: body aches, abdominal pain on and off. Elevated LFTs for the past several years and positive Hep C ab (Hep C viral load of 8930 K on 09/14/24) Intermittent spontaneous bleeding and swelling of face and feet off and on for the past several months Also complains of dry month Complains of dry cough for the past several months Complains of intermittent heartburn and takes Pantoprazole 40 mg at bedtime for GERD. Complains of abdominal pain before a BM and improves after a BM Taking Figs every day with improvement in constipation Admits to wt gain Had a blood transfusion 4-5 years ago for severe iron def anemia Pt states her Mom had Hepatitis 15 to 16 yrs ago and she was checked and was negative at that time. PAST VISITS: Scheduled for EGD and Colon on 05/30/20 and cancelled the appt since she was feeling better - discussed importance of proceeding with GI evaluation. Complains of worsening fatigue for the past 2 yrs. Initially legs felt weak followed by arm weakness. Noted postprandial heaviness and heartburn. Intermittent dizziness and palpitations. Notes bleeding from gums. Complains of pain in the shoulders and legs. Complains of intermittent constipation and abdominal bloating. Worsening constipation since she started taking oral iron (takes 1-2 tab twice a day) Blood transfusion 2 months ago. Thinks she has lost 4-5 lbs. Complains of decreased appetite. Patient denies major cardiac or pulmonary problems, loud snoring or sleep apnea Denies problems with anesthesia in the past. Denies being on chronic anticoagulation. Patient denies known family history of colon polyps, colon cancer or other GI malignancies. PAST VISITS: Jyoti Beaver is a pleasant 55 year old lady, Tells me that she felt rather fatigued over a month ago. While doing her housework, she noted her legs were getting weak. even walking a few steps made her feel exhausted. She had to stop. Subsequently she noted a same thing happening to her arms. one-day she passed out. She went to her primary. labs revealed a hemoglobin of 6.2. she was advised to go to the emergency room right away. The patient was actually on her way to visit her sister in [place], so she elected to go to the ER there. There, the hemoglobin was repeated and was confirmed to be 6.2. She was there overnight. she was given a couple of units of blood and then discharged the next day. Subsequently she was placed on oral iron. She has noted her stool color to be black. She does not know if it was black previous to that since she did not pay much attention. She denies any past history of a similar episode. Denies any known family history of anemia or GI issues. She went through menopause about a year ago . IMAGING STUDIES: 10/13/24 ABD US showed Hepatic steatosis. ENDOSCOPIC STUDIES: 10/2014 colonoscopy was performed by Dr. Marcial - 2 diminutive polyps were removed found to be lymphoid follicles on biopsy [facility] Medical History (Updated 10/18/24 @ 08:13 by Lobo Herrera MD) Microcytic anemia Normal colonoscopy Low hematocrit Dyspepsia Anxiety, generalized Hypertension, essential Surgical History Hx of colonoscopy (~10/2014) Family History Father Heart attack Mother Hepatitis C HTN (hypertension) Social History Household Members Other:: . 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 Cognitive needs: No Hearing needs: No Vision needs: Yes Review of Systems Const All systems reviewed & are unremarkable except as noted in HPI and below Physical Exam Vital Signs: Last Vital Signs Pulse 65 10/18/24 08:12 BP 141/67 H 10/18/24 08:12 Pulse Ox 97 10/18/24 08:12 Oxygen Delivery Method Room Air 10/18/24 08:12 BMI result Body Mass Index 30.0 Const General: healthy appearing and no acute distress Nutritional Appearance: average body habitus Orientation/consciousness: patient oriented x3 Limitations: no limitations HEENT Head: Yes normal to inspection Ears: hearing grossly normal bilaterally Mouth: Normal oral and palatal mucosa present Eyes Sclerae: sclerae normal Pupils: Equal, round and reactive pupils present Neck Neck: Yes normal visual inspection Chest Chest palpation & inspection: normal inspection of the chest Resp Effort & Inspection: normal respiratory effort Auscultation: clear to auscultation bilaterally Cardio Palpation: normal PMI Rate: regular rate Rhythm: regular rhythm Heart sounds: S1 normal heart sound present, S2 normal heart sound present and no murmurs GI Palpation (GI): Soft to palpation, nontender and No hepatosplenomegaly present Auscultation: normal bowel sounds Rectal Exam - Female: deferred Skin General skin exam: no rashes or lesions noted Neuro General: patient oriented x3, gait normal and moves all extremities Cranial nerves: Yes Equal, round and reactive pupils present Psych Appearance: grossly normal Mental Status: mental status grossly normal Assessment & Plan Assessment & Plan (1) GERD (gastroesophageal reflux disease): Code(s): K21.9 - Gastro-esophageal reflux disease without esophagitis Category: Medical Qualifiers: Esophagitis presence: without esophagitis Qualified Code(s): K21.9 - Gastro-esophageal reflux disease without esophagitis (2) Chronic hepatitis C virus genotype 3 infection: Code(s): B18.2 - Chronic viral hepatitis C Category: Medical (3) Edema, lower extremity: Code(s): R60.0 - Localized edema Category: Medical Plan 59 year-old Citizen Of [place] female with hypertension. Patient was seen at [facility] (in [place]) in 03/2020 for severe iron deficiency anemia and received blood transfusion. She has been taking oral iron since then with resolution of anemia. She is post menopausal for the past 5.5 years. Patient complains of postprandial fullness, heartburn and intermittent constipation. Patient was scheduled for an upper endoscopy and colonoscopy on 05/30/2020. She canceled her appointment since she was feeling better. Iron deficiency anemia can be due to upper GI source - erosive esophagitis, hiatal hernia with ulcers, gastritis or peptic ulcer disease, NSAID related small bowel ulcers. Also need to rule out a lower GI source for her anemia - large polyp, colonic AVM. Patient is willing to reschedule her appointment for EGD and colonoscopy for further evaluation of iron deficiency anemia. Patient was advised to continue oral iron and vitamin C once a day and stop 1 week before her EGD and Colon appt. 09/25/24 Pt seen for elevated LFTS and positive Hep C antibody with viral load of 89.3 million IU/ml I will check hep C genotype Patient has been counseled on vaccinations against Hepatitis A and B, Consents to vaccination if not immune patient to review literature about Hep C, medication/treatment, Follow up in 3 weeks to discuss results of labwork, and to decide with MD if treatment will be started Notes: Pt is immune to Hep A and B 10/18/24 Labs showed Hep C Genotype 3. Pt was advised treatment with Mavyret 100-40 mg (glecaprevir-pibrentasvir) for 8 weeks Risks and side effects of the medication were reviewed with the patient and her son. Compliance with treatment was emphasized. Repeat labs in 4 weeks FU in 6 weeks Orders: Orders Hepatitis C Viral Load 11/08/24 B18.2 - Chronic viral hepatitis C Complete Blood Count no Diff 11/08/24 B18.2 - Chronic viral hepatitis C Liver Panel 11/08/24 B18.2 - Chronic viral hepatitis C Prothrombin Time INR 11/08/24 B18.2 - Chronic viral hepatitis C Referrals Cologuard Test Z12.11 - Encounter for screening for malignant neoplasm of colon, Z12.12 - Encounter for screening for malignant neoplasm of rectum Medications: New Mavyret 100-40 mg (glecaprevir-pibrentasvir) must administer with a meal/food 3 tabs PO DAILY 90.0 tabs 1RF 8 weeks NS furosemide (Lasix) Take 1 tab on Tue, Tue and Tuesday 20 mg PO QAM 20 tabs 3RF 30 days R60.0 - Localized edema dicyclomine 10 mg PO TID PRN 30 caps 1RF abdominal pain 30 days R10.13 - Epigastric pain Coding Level of Care Code Est Pt Level 4 (43024) Diagnoses Gastroesophageal reflux disease without esophagitis K21.9 Esophagitis presence: without esophagitis Chronic hepatitis C virus genotype 3 infection B18.2 Edema, lower extremity R60.0 Time Spent (min) 22
[2024-10-18 08:12] VITALS: BP 141/67; PULSE 65; O2SAT 97
== END 2024-10-18 10:56 | disposition home or self-care (01) ==
LOC: HO.HGI 08:07
PROVIDERS: PCP Internal Medicine; Visit Provider Internal Medicine Gastroenterology
DX: K21.9 Gastro-esophageal reflux disease without esophagitis (principal); B18.2 Chronic viral hepatitis C; R60.0 Localized edema
CPT/HCPCS: 99214

== ENCOUNTER → 2024-10-18 08:06 | Outpatient (BNVA) | payer OTHER, SELFPAY | PROVIDERS: PCP Internal Medicine; Visit Provider Internal Medicine Gastroenterology | DX: K21.9 Gastro-esophageal reflux disease without esophagitis (principal); R60.0 Localized edema; B18.2 Chronic viral hepatitis C | CPT/HCPCS: 99212 ==

== ENCOUNTER 2024-11-06 15:17 | Outpatient (AMB) | payer OTHER, SELFPAY ==
[2024-11-06 15:21] VITALS: BP 118/76; PULSE 71; O2SAT 97; BMI 30.2
--- NOTE | 2024-11-06 15:21 | A.OFFPC_ITS ---
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 Allergies No Known Allergies [No Known Allergies*] Allergy (Verified 11/06/24 15:21) Medication List - Last Reconciled 11/06/24 by Jose Manuel Saleh MD albuterol sulfate 90 mcg/actuation 2 puffs inhalation Q4-6H PRN 30 days atenolol 100 mg PO DAILY 90 days dicyclomine 10 mg PO TID PRN 30 days escitalopram oxalate (Lexapro) 10 mg PO DAILY famotidine 40 mg PO .q am 90 days furosemide (Lasix) 20 mg PO QAM 30 days inhalational spacing device (Aerochamber MV spacer) As directed losartan-hydrochlorothiazide 100-25 mg 1 tab PO DAILY Mavyret 100-40 mg (glecaprevir-pibrentasvir) 3 tabs PO DAILY 8 weeks NS multivitamin 1 cap PO DAILY ofloxacin 0.3% drps ophthalmic (eye) pantoprazole 40 mg PO BEDTIME Tobacco use date assessed: 11/06/24 Dental Screening Dental Screen Date: 11/06/24 Did you have a dental visit in the last 12 months?: No Did you have a dental problem in the last 6 months where you did not have access to dental care?: No Was dental information given to patient?: Patient declined HPI 2 month follow up HPI Details History - The patient is a 59-year-old female pr esenting for the assessment of ongoing treatment and management of chronic conditions. Patient was recently diagnosed with hepatitis-C active infection, she is being treated for that through [facility] - The patient reports feeling better cur rently Continued to have cough, she has appointment coming up with web specialist this month - Blood pressure readings have improved with the latest at 118, considered very good by the patient - The patient's treatment regimen includ es instructions to monitor blood pressure and dietary suggestions like including garlic, without restrictions based on past conditions. Discussed anxiety and depression, with a history of escitalopram use, currently not on medication for these conditions. - GERD is stable with H2 blockers PPI Medications - Atenolol for hypertension - Losartan/Hydrochlorothiazide for hyper tension - Pantoprazole for gastroesophageal refl ux disease (GERD) - Famotidine for GERD - Vitamin D, 1000 IU weekly (previously checked normal levels) Problem List - Chronic Cough - Gastroesophageal Reflux Disease (GERD) - Hypertension - Anxiety/Depression - obesity - active hepatitis-C infection Patient Instructions - Continue to monitor and maintain curre nt blood pressure management. - Include garlic in your diet if preferr ed, as there are no restrictions. - Stay cool in hot weather - No immediate concerns regarding Vitami n D; await lab results. - Return for follow-up in four months fo r continued evaluation. . Review of Systems - General: No fever no chills - Neurological: No headaches no dizziness - Ear nose throat: No sore throat no hearing difficulty no ear pain - Cardiovascular: No syncope, no chest pain, no palpitations - Gastrointestinal: No nausea vomiting or diarrhea - Endocrine: No polyuria polydipsia no heat intolerance - Genitourinary: No dysuria , no blood in urine Physical Exam - General: No acute distress - HEENT: No acute findings - Neck: Supple - Respiratory system: Able to talk in f ull sentences, no audible wheeze - Cardiovascular: S1-S2 regular in rate and rhythm - Gastrointestinal: No pain - Extremities: No new findings - 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 1. Little interest or pleasure in doing things: not at all 2. Feeling down, depressed, or hopeless: not at all 3. Trouble falling or staying asleep, or sleeping too much: not at all 4. Feeling tired or having little energy: not at all 5. Poor appetite or overeating: not at all 6. Feeling bad about yourself - or that you are a failure or have let yourself or your family down: not at all 7. Trouble concentrating on things, such as reading the newspaper or watching television: not at all 8. Moving or speaking so slowly that other people could have noticed. Or the opposite - being so fidgety or restless that you have been moving around a lot more than usual: not at all 9. Thoughts that you would be better off or of hurting yourself in some way: not at all Total score: 0 Depression Screening Interpretation: Negative Depression Screening Done: Yes 17717 - PHQ-9 Billing: Yes Source: Developed by Drs. Lio Ogden, Mildred Paez, Gen Butler and colleagues, with an educational radha from [employer]. Thrive Questionnaire Date Thrive assessed: 11/06/24 I am a: Patient What is your living situation today?: I choose not to answer this question Within the past 12 months, did the food you bought not last and you didn't have the money to get more?: I choose not to answer this question Within the past 12 months, did you worry whether your food would run out before you got money to buy more?: I choose not to answer this question Do you have trouble paying for medicines?: I choose not to answer this question Do you have trouble getting transportation to medical appointments?: I choose not to answer this question Do you have trouble paying your heating and electricity bill?: I choose not to answer this question Do you have trouble taking care of your child, family member or friend?: I choose not to answer this question Do you have trouble with day-to-day activities such as bathing, preparing meals, shopping, managing finances, etc.?: I choose not to answer this question Are you currently unemployed and looking for a job?: I choose not to answer this question Are you interested in more education?: I choose not to answer this question Please select the resources that you would like help with: None Currently or been in a relationship where the following occur: I choose not to answer THRIVE Score: 0 AUDIT C Alcohol Use Questionnaire (AUDIT-C) 1. How often do you have a drink containing alcohol?: Never 3. How often do you have six or more drinks on one occasion?: Never Total Score: 0 Score Reviewed/Action Taken: Yes SACHIN-7 AMB Questionnaire SACHIN-7 Date SACHIN - 7 assessed: 09/14/24 Source: Developed by Drs. Lio Ogden, Mildred Paez, Gen Butler and colleagues, with an educational radha from [employer]. Physical exam (Primary Care) Vital Signs: Last Vital Signs Pulse 71 11/06/24 15:21 BP 118/76 11/06/24 15:21 Pulse Ox 97 11/06/24 15:21 Oxygen Delivery Method Room Air 11/06/24 15:21 BMI result Body Mass Index 30.2 Tobacco/Smoking Status: Tobacco use Status Tobacco use date assessed 11/06/24 11/06/24 15:23 Patient Tobacco Use Status Never used Tobacco 11/06/24 15:23 e-Cigarette/Vaping Use Never Used 11/06/24 15:23 PHQ-9: PHQ-9 Score PHQ-9: Total score 0 11/06/24 15:43 Depression Screening Interpretation: Negative Thrive Assessment: Date of Thrive Assessment Date Thrive assessed 11/06/24 11/06/24 15:23 Currently or been in a relationship where the following occur: I choose not to answer Coding Level of Care Code Est Pt Level 4 (75765) Complex EM visit Add On G2211 Diagnoses Gastroesophageal reflux disease without esophagitis K21.9 Esophagitis presence: without esophagitis Chronic hepatitis C virus genotype 3 infection B18.2 Hypertension, essential I10 Anxiety, generalized F41.1 Dyspepsia R10.13 Additional Codes PHQ-9 - 85020 - PHQ-9 Billing: Yes ([id number]) Assessment & Plan Assessment & Plan (1) GERD (gastroesophageal reflux disease): Code(s): K21.9 - Gastro-esophageal reflux disease without esophagitis Category: Medical Qualifiers: Esophagitis presence: without esophagitis Qualified Code(s): K21.9 - Gastro-esophageal reflux disease without esophagitis (2) Chronic hepatitis C virus genotype 3 infection: Code(s): B18.2 - Chronic viral hepatitis C Category: Medical (3) Hypertension, essential: Comment: continue medications Code(s): I10 - Essential (primary) hypertension Category: Medical (4) Anxiety, generalized: Comment: continue medications Code(s): F41.1 - Generalized anxiety disorder Category: Medical (5) Dyspepsia: Comment: continue medications Code(s): R10.13 - Epigastric pain Category: Medical Plan History - The patient is a 59-year-old female presenting for the assessment of ongoing treatment and management of chronic conditions. Patient was recently diagnosed with hepatitis-C active infection, she is being treated for that through [facility] - The patient reports feeling better currently Continued to have cough, she has appointment coming up with web specialist this month - Blood pressure readings have improved with the latest at 118, considered very good by the patient - The patient's treatment regimen includes instructions to monitor blood pressure and dietary suggestions like including garlic, without restrictions based on past conditions. Discussed anxiety and depression, with a history of escitalopram use, currently not on medication for these conditions. - GERD is stable with H2 blockers PPI Medications - Atenolol for hypertension - Losartan/Hydrochlorothiazide for hypertension - Pantoprazole for gastroesophageal reflux disease (GERD) - Famotidine for GERD - Vitamin D, 1000 IU weekly (previously checked normal levels) Problem List - Chronic Cough - Gastroesophageal Reflux Disease (GERD) - Hypertension - Anxiety/Depression - obesity - active hepatitis-C infection Patient Instructions - Continue to monitor and maintain current blood pressure management. - Include garlic in your diet if preferred, as there are no restrictions. - Stay cool in hot weather - No immediate concerns regarding Vitamin D; await lab results. - Return for follow-up in four months for continued evaluation. .
== END 2024-11-06 15:48 | disposition home or self-care (01) ==
LOC: HO.HMCC 15:18
PROVIDERS: PCP Internal Medicine; Visit Provider Internal Medicine
DX: K21.9 Gastro-esophageal reflux disease without esophagitis (principal); B18.2 Chronic viral hepatitis C; I10 Essential (primary) hypertension; F41.1 Generalized anxiety disorder; R10.13 Epigastric pain

== ENCOUNTER → 2024-11-06 15:17 | Outpatient (BNVA) | payer OTHER, SELFPAY | PROVIDERS: PCP Internal Medicine; Visit Provider Internal Medicine | DX: K21.9 Gastro-esophageal reflux disease without esophagitis (principal); B18.2 Chronic viral hepatitis C; I10 Essential (primary) hypertension; F41.1 Generalized anxiety disorder; R10.13 Epigastric pain; Z79.899 Other long term (current) drug therapy | CPT/HCPCS: 96127; 99212 ==

== ENCOUNTER 2024-11-20 15:09 | Outpatient (REF) | payer OTHER, SELFPAY ==
--- NOTE | 2024-11-20 15:12 | PFT_ITS ---
Indication: Cough Spirometry [FEV1 to FVC 88%; FEV1 2.12 L; FVC 2.4 L. No significant response to bronchodilators noted.] Lung Volumes [Total lung capacity 71% predicted; residual volume 63% predicted; expiratory reserve volume 29% predicted] Diffusion Capacity [DLCO 101% predicted] Comparisons [none] Interpretation [No obstructive ventilatory defects identified. No significant response to bronchodilators noted. There is a restrictive ventilatory defect consistent mild restrictive lung disease. Also has a decreasing the expiratory reserve volume which could be secondary to an elevated BMI. Diffusing capacity is within normal limits. Clinical correlation warranted.] MTDD
[2024-11-20 15:50] VITALS: PULSE 74; O2SAT 95
== END 2024-11-20 15:10 | disposition home or self-care (01) ==
LOC: HO.RESP 15:09
PROVIDERS: PCP Internal Medicine; Visit Provider Internal Medicine
DX: R05.3 Chronic cough (principal)
CPT/HCPCS: 94010; 94640; 94727; 94729; 99212

== ENCOUNTER 2024-11-20 15:39 | Outpatient (AMB) | payer OTHER, SELFPAY ==
[2024-11-20 15:44] VITALS: BP 140/70; PULSE 78; O2SAT 94; BMI 30.2
--- NOTE | 2024-11-20 15:44 | A.OFFVIS_ITS ---
Vital Signs 11/20/24 15:44 Height 5 ft 4 in Weight 176 lb BMI 30.2 BP 140/70 H Blood Pressure Location Lt brachial Position Sitting Pulse 78 Pulse Source Pulse Oximeter Pulse Oximetry (%) 94 Oxygen Delivery Method Room Air Intake Visit Reasons: Cough/Same Day PFT Intake Note: pt is here for pft follow up and is feeling good today Allergies No Known Allergies [No Known Allergies*] Allergy (Verified 11/20/24 16:04) Medication List - Last Reconciled 11/20/24 by Jessica Deleon MD albuterol sulfate 90 mcg/actuation 2 puffs inhalation Q4-6H PRN 30 days atenolol 100 mg PO DAILY 90 days dicyclomine 10 mg PO TID PRN 30 days escitalopram oxalate (Lexapro) 10 mg PO DAILY famotidine 40 mg PO .q am 90 days furosemide (Lasix) 20 mg PO QAM 30 days inhalational spacing device (Aerochamber MV spacer) As directed losartan-hydrochlorothiazide 100-25 mg 1 tab PO DAILY Mavyret 100-40 mg (glecaprevir-pibrentasvir) 3 tabs PO DAILY 8 weeks NS multivitamin 1 cap PO DAILY ofloxacin 0.3% drps ophthalmic (eye) pantoprazole 40 mg PO BEDTIME Do you need a note to return to daycare/school/sports/work: No HPI HPI Cough/Same Day PFT: Details: THIS 59 YEARS OLD FEMALE OF [place] BACKGROUND, WHO LIVES HERE WITH HER CHILDREN, HER COUGH IS BETTER THAN BEFORE BUT NOT COMPLETELY GONE. SHE CONTINUES TO HAVE INTERMITTENT FLARE UPS, SHE IS NONSMOKER. DOES NOT HAVE HISTORY OF BRONCHIAL ASTHMA OR COPD. IT SEEMS THAT COUGH IS RELATED TO UPPER AIRWAY ALLERGIES. SHE STATES THAT WHEN SHE GOES TO [place] , SHE GETS COMPLETE RID OF COUGH, WHEN SHE COMES BACK OVER HERE SHE STARTS HAVING THE COUGH. WHEN SHE USES THE ALBUTEROL INHALER, IT HELPS TO RELIEVE COUGH BUT THEN IT COMES BACK . SHE ALSO USES OTC ALLERGY PILLS. OF AND ON AND IT HELPS DELSYN SYRUP RELIEVES HER COUGH FOR A FEW HOURS AT A TIME. [facility] Medical History Microcytic anemia Normal colonoscopy Low hematocrit Dyspepsia Anxiety, generalized Hypertension, essential Surgical History Hx of colonoscopy (~10/2014) Family History Father Heart attack Mother Hepatitis C HTN (hypertension) Social History Household Members Other:: . 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 Cognitive needs: No Hearing needs: No Vision needs: Yes Review of Systems Const All systems reviewed & are unremarkable except as noted in HPI and below Eyes Reports no additional complaints ENT Reports nasal congestion, Reports nasal discharge (MILD OFF AND ON) and Reports other (COMPLAINS OF DRY MOUTH AND LOWER LIP) Card Denies chest pain at rest, Denies diaphoresis, Denies irregular heart rhythm and Denies leg edema Resp Reports as per HPI GI Reports dyspepsia and Reports heartburn Reports no additional complaints Musc Reports no additional complaints Skin/Breast Reports system reviewed and no additional complaints, except as documented Neuro Reports no additional complaints Psych Reports depression (BEING TREATED WITH MED) Endo Reports no additional complaints Dell/Lymph Reports other (HISTORY OF MICROCYTIC ANEMIA) Aller/Immun Reports no additional complaints Physical Exam Vital Signs: Last Vital Signs Pulse 78 11/20/24 15:44 BP 140/70 H 11/20/24 15:44 Pulse Ox 94 11/20/24 15:44 Oxygen Delivery Method Room Air 11/20/24 15:44 BMI result Body Mass Index 30.2 Const General: healthy appearing, comfortable, no acute distress, alert and awake Orientation/consciousness: patient oriented x3 HEENT Head: Yes normal to inspection General nose exam: No nasal polyps present and No nasal discharge present Face and sinus: Yes sinuses nontender Mouth: oropharynx normal Throat: Yes posterior oropharynx normal Eyes General: appearance normal, both eyes and all related structures Neck Neck: Yes normal visual inspection, Yes no lymphadenopathy, Yes trachea midline and Yes no JVD Thyroid: Thyroid normal Chest Chest palpation & inspection: normal inspection of the chest, normal palpation of entire chest wall and no tenderness Resp Effort & Inspection: normal respiratory effort Auscultation: clear to auscultation bilaterally, no crackles and no wheezes Cardio Palpation: normal PMI Rate: regular rate Rhythm: regular rhythm Heart sounds: no gallops and no murmurs GI Palpation (GI): Soft to palpation, nontender, No hepatosplenomegaly present and no masses Auscultation: normal bowel sounds Back/Spine/Pelvis Thoracic/Lumbar Spine: thoracic and lumbar spine normal to inspection Skin General skin exam: no rashes or lesions noted Neuro General: patient oriented x3 and no focal motor deficits Cranial nerves: Yes CN's II-XII intact bilaterally Extrem General: Yes normal to inspection, Yes no clubbing, cyanosis or edema and Yes no calf tenderness Psych Appearance: grossly normal and well kempt Speech and movement: Normal speech and movement present Results Reviewed Results Reviewed: CHEST XRAY PERFORMED ON LAST VISIT WAS NORMAL. COMPLETE PULMONARY FUNCTION TEST PERFORMED TODAY IS NORMAL. THERE IS NO EVIDENCE OF ANY OBSTRUCTIVE OR RESTRICTIVE PULMONARY DISORDER. ALSO THERE IS NO SIGNIFICANT RESPONSE TO BRONCHODILATOR THERAPY Assessment & Plan Assessment & Plan (1) Persistent cough: Comment: CHRONIC, PERSISTANT COUGH , MOST LIKELY SEC TO UPPER AIRWAYS HYPERSENSITIVITY SYNDROME . Code(s): R05.3 - Chronic cough Category: Medical Plan: PATIENT AND HER SON WERE BOTH EDUCATED ABOUT THE MOST LIKELY CAUSE OF HER COUGH. THE SEVERITY OF THE SYMPTOMS IS NOT REALLY TOO BAD, GENERAL PRINCIPLES OF MINIMIZING THE EXPOSURE TO ALLERGIES IS EXPLAINED. MAY USE ZYRTEC 10 MG HALF OR 1 TABLET ONCE A DAY P.R.N.. OK TO USE OTC COUGH SYRUP SUCH DELSYN 1 OR 2 TSP T.I.D. P.R.N. FEEL FREE TO CALL OR COME BACK FOR EVALUATION IF SYMPTOMS GET ANY WORSE Coding Level of Care Code Est Pt Level 3 (95687) Diagnoses Persistent cough R05.3
== END 2024-11-20 16:02 | disposition home or self-care (01) ==
LOC: HO.HPS 15:40
PROVIDERS: PCP Internal Medicine; Visit Provider Internal Medicine
DX: R05.3 Chronic cough (principal)
CPT/HCPCS: 99213

== ENCOUNTER 2024-11-28 14:04 | Outpatient (REF) | payer OTHER, SELFPAY ==
[2024-11-28 16:15] LABS: Hematocrit 41.2 % (37.0-47.0); Hemoglobin 13.2 g/dl (12.0-16.0); Mean Corpuscular Hemoglobin 23.9 pg (27.0-33.0); Mean Corpuscular Volume 74.5 fL (80.0-98.0); Mean Platelet Volume 11.1 fL (9.4-12.3); Platelet Count 277 X10*3/uL (160-400); Red Blood Count 5.53 X10*6/uL (4.20-5.50); Red Cell Distribution Width 14.6 % (11.0-16.0)
[2024-11-28 16:22] LABS: INTERNATIONAL NORM RATIO 1.1 (0.9-1.1); Prothrombin Time 12.7 SEC (10.9-12.4)
[2024-11-28 16:43] LABS: Alanine Aminotransferase 13 U/L (0-31); Albumin Level 3.9 g/dL (3.5-5.0); Alkaline Phosphatase 119 U/L (39-117); Anion Gap 12 (12-20); Aspartate Amino Transferase 28 U/L (5-31); Bilirubin Direct 0.2 mg/dL (0.0-0.5); Bilirubin Total 0.7 mg/dL (0.0-1.0); Blood Urea Nitrogen 9 mg/dL (9-16); Calcium 9.5 mg/dL (8.4-10.2); Carbon Dioxide 25 mmol/L (22-29); Chloride 109 mmol/L (96-108); Estimated Glomerular Filt Rate > 60; Glucose Random 117 mg/dL (60-115); Sodium 142 mmol/L (135-145); Total Protein 7.7 g/dL (6.5-8.0)
[2024-11-29 05:10] LABS: HBc Num1 3.64 S/CO (0.00-0.79); HBsAGNum1 0.28 S/CO (0.00-0.99); Hepatitis A Antibody IgM 0.17 Index (0-0.79); Hepatitis B Surface Antigen Negative (Negative); ~HepC Num1 11.24 S/CO (0.00-0.79); ~Hepatitis A Antibody IgM Nonreactive (Nonreactive); ~Hepatitis B Surface Antibody REACTIVE (Nonreactive); ~Hepatitis C Antibody Reactive (Nonreactive)
[2024-11-29 05:49] LABS: Hepatitis B Core Antibody Reactive (Nonreactive)
[2024-11-30 15:13] LABS: HCV Log PCR <1.18 NOT DETECTED Log IU/mL (NOT DETECTED); HepC Viral Load <15 NOT DETECTED IU/mL (NOT DETECTED)
== END 2024-11-28 14:05 | disposition home or self-care (01) ==
LOC: HO.HMGCLDS 14:04
PROVIDERS: Internal Medicine Gastroenterology; PCP Internal Medicine; Visit Provider Internal Medicine
DX: I10 Essential (primary) hypertension (principal); R79.89 Other specified abnormal findings of blood chemistry; B18.2 Chronic viral hepatitis C
CPT/HCPCS: 36415; 80053; 82248; 85027; 85610; 86704; 86706; 86709; 86803; 87340; 87522

== ENCOUNTER 2024-12-04 10:32 | Outpatient (AMB) | payer OTHER, SELFPAY ==
--- NOTE | 2024-12-04 10:38 | A.OFFVIS_ITS ---
Vital Signs 12/04/24 11:13 12/04/24 11:42 Height 5 ft 4 in Weight 176 lb BMI 30.2 BP 174/80 H 124/60 Blood Pressure Location Lt brachial Lt brachial Position Sitting Sitting Pulse 58 59 Pulse Oximetry (%) 96 Oxygen Delivery Method Room Air Intake Visit Reasons: HCV Intake Note: Patient follow up for HCV and lab results. Patient cc: nauseas, itchy body, abdominal pain, dizziness when she is walking with fatigue, side of throat pain with touch, denies any other GI issues. Postmaster Relief Required: No Accompanied by: Son Allergies No Known Allergies (No Known Allergies*) Allergy (Verified 03/27/25 12:15) Medication List - Last Reconciled 12/04/24 by Lobo Herrera MD albuterol sulfate 90 mcg/actuation 2 puffs inhalation Q4-6H PRN 30 days atenolol 100 mg PO DAILY 90 days dicyclomine 10 mg PO TID PRN 30 days escitalopram oxalate (Lexapro) 10 mg PO DAILY famotidine 40 mg PO .q am 90 days furosemide (Lasix) 20 mg PO QAM 30 days inhalational spacing device (Aerochamber MV spacer) As directed losartan-hydrochlorothiazide 100-25 mg 1 tab PO DAILY Mavyret 100-40 mg (glecaprevir-pibrentasvir) 3 tabs PO DAILY 4 weeks NS multivitamin 1 cap PO DAILY ofloxacin 0.3% drps ophthalmic (eye) pantoprazole 40 mg PO BEDTIME HPI HPI HCV: Details: GI Clinic visit for this 59-year-old female seen for FU of Hep C. TODAY'S VISIT: Patient is accompanied by her son. Patient complains of nauseas, itchy body, abdominal pain, dizziness when she is walking with fatigue, side of throat pain with touch Complains of itching of hands, joint pains, feeling dizzy Intermittent generalized abdominal pain. Notes abd pain after walking. Pain resolves after she sits for a little while and after a bowel movement Pt was prescribed Mavyret for Hep C on 10/18/24 PAST VISITS: Elevated LFTs for the past several years and positive Hep C ab (Hep C viral load of 8930 K on 09/14/24) Intermittent spontaneous bleeding and swelling of face and feet off and on for the past several months Also complains of dry month Complains of dry cough for the past several months Complains of intermittent heartburn and takes Pantoprazole 40 mg at bedtime for GERD. Complains of abdominal pain before a BM and improves after a BM Taking Figs every day with improvement in constipation Admits to wt gain Had a blood transfusion 4-5 years ago for severe iron def anemia Pt states her Mom had Hepatitis 15 to 16 yrs ago and she was checked and was negative at that time. Scheduled for EGD and Colon on 05/30/20 and cancelled the appt since she was feeling better - discussed importance of proceeding with GI evaluation. Complains of worsening fatigue for the past 2 yrs. Initially legs felt weak followed by arm weakness. Noted postprandial heaviness and heartburn. Intermittent dizziness and palpitations. Notes bleeding from gums. Complains of pain in the shoulders and legs. Complains of intermittent constipation and abdominal bloating. Worsening constipation since she started taking oral iron (takes 1-2 tab twice a day) Blood transfusion 2 months ago. Thinks she has lost 4-5 lbs. Complains of decreased appetite. Patient denies major cardiac or pulmonary problems, loud snoring or sleep apnea Denies problems with anesthesia in the past. Denies being on chronic anticoagulation. Patient denies known family history of colon polyps, colon cancer or other GI malignancies. PAST VISITS: Jyoti Beaver is a pleasant 55 year old lady, Tells me that she felt rather fatigued over a month ago. While doing her housework, she noted her legs were getting weak. even walking a few steps made her feel exhausted. She had to stop. Subsequently she noted a same thing happening to her arms. one-day she passed out. She went to her primary. labs revealed a hemoglobin of 6.2. she was advised to go to the emergency room right away. The patient was actually on her way to visit her sister in [place], so she elected to go to the ER there. There, the hemoglobin was repeated and was confirmed to be 6.2. She was there overnight. she was given a couple of units of blood and then discharged the next day. Subsequently she was placed on oral iron. She has noted her stool color to be black. She does not know if it was black previous to that since she did not pay much attention. She denies any past history of a similar episode. Denies any known family history of anemia or GI issues. She went through menopause about a year ago . IMAGING STUDIES: 10/13/24 ABD US showed Hepatic steatosis. ENDOSCOPIC STUDIES: 10/2014 colonoscopy was performed by Dr. Marcial - 2 diminutive polyps were removed found to be lymphoid follicles on bx [facility] Medical History Microcytic anemia Normal colonoscopy Low hematocrit Dyspepsia Anxiety, generalized Hypertension, essential Surgical History Hx of colonoscopy (~10/2014) Family History Father Heart attack Mother Hepatitis C HTN (hypertension) Social History Household Members Other:: . 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 Cognitive needs: No Hearing needs: No Vision needs: Yes Review of Systems Const All systems reviewed & are unremarkable except as noted in HPI and below Physical Exam Vital Signs: Last Vital Signs Pulse 59 12/04/24 11:42 BP 124/60 12/04/24 11:42 Pulse Ox 96 12/04/24 11:13 Oxygen Delivery Method Room Air 12/04/24 11:13 BMI result Body Mass Index 30.2 Const General: healthy appearing and no acute distress Nutritional Appearance: obese Orientation/consciousness: patient oriented x3 Limitations: no limitations HEENT Head: Yes normal to inspection Ears: hearing grossly normal bilaterally Eyes Sclerae: sclerae normal Pupils: Equal, round and reactive pupils present Neck Neck: Yes normal visual inspection Chest Chest palpation & inspection: normal inspection of the chest Resp Effort & Inspection: normal respiratory effort Auscultation: clear to auscultation bilaterally Cardio Palpation: normal PMI Rate: regular rate Rhythm: regular rhythm Heart sounds: S1 normal heart sound present, S2 normal heart sound present and no murmurs GI Palpation (GI): Soft to palpation, nontender and No hepatosplenomegaly present Auscultation: normal bowel sounds Rectal Exam - Female: deferred Skin General skin exam: no rashes or lesions noted Neuro General: patient oriented x3, gait normal and moves all extremities Cranial nerves: Yes Equal, round and reactive pupils present Psych Appearance: grossly normal Mental Status: mental status grossly normal Assessment & Plan Assessment & Plan (1) Dyspepsia: Comment: continue medications Code(s): R10.13 - Epigastric pain Category: Medical (2) GERD (gastroesophageal reflux disease): Code(s): K21.9 - Gastro-esophageal reflux disease without esophagitis Category: Medical Qualifiers: Esophagitis presence: without esophagitis Qualified Code(s): K21.9 - Gastro-esophageal reflux disease without esophagitis (3) LFT elevation: Code(s): R79.89 - Other specified abnormal findings of blood chemistry Category: Medical (4) Chronic hepatitis C virus genotype 3 infection: Code(s): B18.2 - Chronic viral hepatitis C Category: Medical Plan 59 year-old [place] female with hypertension. Patient was seen at [facility] (in [place]) in 03/2020 for severe iron deficiency anemia and received blood transfusion. She has been taking oral iron since then with resolution of anemia. She is post menopausal for the past 5.5 years. Patient complains of postprandial fullness, heartburn and intermittent constipation. Patient was scheduled for an upper endoscopy and colonoscopy on 05/30/2020. She canceled her appointment since she was feeling better. Iron deficiency anemia can be due to upper GI source - erosive esophagitis, hiatal hernia with ulcers, gastritis or peptic ulcer disease, NSAID related small bowel ulcers. Also need to rule out a lower GI source for her anemia - large polyp, colonic AVM. Patient is willing to reschedule her appointment for EGD and colonoscopy for fu rther evaluation of iron deficiency anemia. Patient was advised to continue oral iron and vitamin C once a day and stop 1 week before her EGD and Colon appt. 09/25/24 Pt seen for elevated LFTS and positive Hep C antibody with viral load of 89.3 million IU/ml I will check hep C genotype Patient has been counseled on vaccinations against Hepatitis A and B, Consents to vaccination if not immune patient to review literature about Hep C, medication/treatment, Follow up in 3 weeks to discuss results of labwork, and to decide with MD if treatment will be started Notes: Pt is immune to Hep A and B 10/18/24 Labs showed Hep C Genotype 3. Pt was advised treatment with Mavyret 100-40 mg (glecaprevir-pibrentasvir) for 8 weeks Risks and side effects of the medication were reviewed with the patient and her son. Compliance with treatment was emphasized. 12/04/24 Pt will be completing Hep C treatment with Mavyret end of November, Complains of itching of hands, joint pains, feeling dizzy Intermittent generalized abdominal pain. Pt prescribed dicyclomine prn for abdominal pain Repeat labs in 4 weeks FU in 4 months Medications: Refilled dicyclomine 10 mg PO TID PRN 30 caps 1RF abdominal pain 30 days R10.13 - Epigastric pain Coding Level of Care Code Est Pt Level 4 (62022) Diagnoses Dyspepsia R10.13 Gastroesophageal reflux disease without esophagitis K21.9 Esophagitis presence: without esophagitis LFT elevation R79.89 Chronic hepatitis C virus genotype 3 infection B18.2 Time Spent (min) 21
[2024-12-04 11:13] VITALS: BP 174/80; PULSE 58; O2SAT 96; BMI 30.2
[2024-12-04 11:42] VITALS: BP 124/60; PULSE 59
== END 2024-12-04 11:45 | disposition home or self-care (01) ==
LOC: HO.HGI 10:33
PROVIDERS: PCP Internal Medicine; Visit Provider Internal Medicine Gastroenterology
DX: R10.13 Epigastric pain (principal); K21.9 Gastro-esophageal reflux disease without esophagitis; R79.89 Other specified abnormal findings of blood chemistry; B18.2 Chronic viral hepatitis C
CPT/HCPCS: 99214

== ENCOUNTER → 2024-12-04 10:32 | Outpatient (BNVA) | payer OTHER, SELFPAY | PROVIDERS: PCP Internal Medicine; Visit Provider Internal Medicine Gastroenterology | DX: K21.9 Gastro-esophageal reflux disease without esophagitis (principal); R10.13 Epigastric pain; R79.89 Other specified abnormal findings of blood chemistry; B18.2 Chronic viral hepatitis C | CPT/HCPCS: 99212 ==

== ENCOUNTER 2025-02-01 12:39 | Outpatient (AMB) | payer OTHER, SELFPAY ==
--- NOTE | 2025-02-01 12:41 | A.OFFPC_ITS ---
Vital Signs 02/01/25 12:42 Height 5 ft 4 in Weight 178 lb BMI 30.6 BP 134/70 Blood Pressure Location Lt brachial Position Sitting Respiration 18 Pulse 84 Pulse Source Pulse Oximeter Temp 98.7 F Temp Source Oral Pulse Oximetry (%) 97 Oxygen Delivery Method Room Air Intake Visit Reasons: f/up Allergies No Known Allergies (No Known Allergies*) Allergy (Verified 02/01/25 12:43) Medication List - Last Reconciled 02/01/25 by Jose Manuel Saleh MD albuterol sulfate 90 mcg/actuation 2 puffs inhalation Q4-6H PRN 30 days atenolol 100 mg PO DAILY 90 days dicyclomine 10 mg PO TID PRN 30 days escitalopram oxalate (Lexapro) 10 mg PO DAILY famotidine 40 mg PO .q am 90 days furosemide (Lasix) 20 mg PO QAM 30 days inhalational spacing device (Aerochamber MV spacer) As directed losartan-hydrochlorothiazide 100-25 mg 1 tab PO DAILY Mavyret 100-40 mg (glecaprevir-pibrentasvir) 3 tabs PO DAILY 4 weeks NS multivitamin 1 cap PO DAILY ofloxacin 0.3% drps ophthalmic (eye) pantoprazole 40 mg PO BEDTIME Tobacco use date assessed: 02/01/25 Dental Screening Dental Screen Date: 11/06/24 HPI f/up HPI Details Chief Complaint Medication management for hypertension. Ongoing care History The patient is a 60-year-old female Hypertension: - The patient has a past medical history of essential hypertension. - Previously monitored blood pressures i nclude a reading of 124/60 on December 04, and today's reading is 134/70. - The patient reports fluctuation in blo od pressure associated with anxiety episodes. - The patient is currently on atenolol 1 00 mg daily for blood pressure management. Chronic itching Patient was taking hydroxyzine in the past and is requesting a refill Currently she is under care of Gastroenterology for hepatitis-C infection She is done with antibiotic and is now being observed Complained of feeling palpitations, EKG done today shows normal sinus rhythm signs of left ventricular hypertrophy Echocardiogram ordered for that reason Medical History: - Essential hypertension - Irritable Bowel Syndrome (IBS) - Anxiety disorder - Gastroesophageal Reflux Disease (GERD) - Hepatitis C infection Medications: - Atenolol 100 mg for hypertension - Dicyclomine 10 mg for irritable bowel syndrome stopped - Lexapro 10 mg for anxiety - famotidine 40 mg for GERD Social History: - The patient is advised to engage in re gular exercise for weight management. - BMI is elevated at 30.6, indicating ob esity, with a recommendation for weight loss. Problem List - Essential Hypertension - Anxiety Disorder - Gastroesophageal Reflux Disease (GERD) - Hepatitis C infection - Obesity - chronic itching - palpitations Diagnostic results - Labs: Electrolytes within normal limit s, kidney function tests normal, liver enzymes stable, CBC shows normal hemoglobin level and normal white count. EKG : NSR no acute findings, LVH + Patient Instructions - Take atenolol daily as prescribed for blood pressure. - Exercise regularly to help with weight loss. - Monitor blood pressure and note any si gnificant changes. - Report any side effects from medicatio ns. - Maintain a balanced diet to assist wit h weight management. - Echo heart ordered Review of Systems General: No fever no chills neurological: No headaches no dizziness ear nose throat: No sore throat no hearing difficulty no ear pain cardiovascular: No syncope, no chest pain gastrointestinal: No nausea vomiting or diarrhea endocrine: No polyuria polydipsia no heat intolerance genitourinary: No dysuria skin: No new complaints Physical Exam general: No acute distress, BMI is elevated at 30.6, patient is obese HEENT: No acute findings neck: Supple respiratory system: Able to talk in full sentences, no audible wheeze no stridor cardiovascular: S1-S2 RRR, blood pressure today is 134/70 gastrointestinal: No pain extremities: No new findings 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 Cognitive needs: No Hearing needs: No Vision needs: Yes Questionnaire Thrive Questionnaire Date Thrive assessed: 07/24/24 I am a: Patient What is your living situation today?: I choose not to answer this question Within the past 12 months, did the food you bought not last and you didn't have the money to get more?: I choose not to answer this question Within the past 12 months, did you worry whether your food would run out before you got money to buy more?: I choose not to answer this question Do you have trouble paying for medicines?: I choose not to answer this question Do you have trouble getting transportation to medical appointments?: I choose not to answer this question Do you have trouble paying your heating and electricity bill?: I choose not to answer this question Do you have trouble taking care of your child, family member or friend?: I choose not to answer this question Do you have trouble with day-to-day activities such as bathing, preparing meals, shopping, managing finances, etc.?: I choose not to answer this question Are you currently unemployed and looking for a job?: I choose not to answer this question Are you interested in more education?: I choose not to answer this question Please select the resources that you would like help with: None Currently or been in a relationship where the following occur: I choose not to answer THRIVE Score: 0 SACHIN-7 AMB Questionnaire SACHIN-7 Date SACHIN - 7 assessed: 09/14/24 Source: Developed by Drs. Lio Ogden, Mildred Paez, Gen Butler and colleagues, with an educational radha from [employer]. Physical exam (Primary Care) Vital Signs: Last Vital Signs Temp 98.7 F 02/01/25 12:42 Pulse 84 02/01/25 12:42 Resp 18 02/01/25 12:42 BP 134/70 02/01/25 12:42 Pulse Ox 97 02/01/25 12:42 Oxygen Delivery Method Room Air 02/01/25 12:42 BMI result Body Mass Index 30.6 Tobacco/Smoking Status: Tobacco use Status Tobacco use date assessed 02/01/25 02/01/25 12:46 Patient Tobacco Use Status Never used Tobacco 02/01/25 12:46 e-Cigarette/Vaping Use Never Used 02/01/25 12:46 Thrive Assessment: Date of Thrive Assessment Date Thrive assessed 07/24/24 02/01/25 12:46 Currently or been in a relationship where the following occur: I choose not to answer Office Procedures EKG 60061-Xomfbculskalpntdo, Complete Coding Level of Care Code Est Pt Level 5 (85657) Diagnoses Left ventricular hypertrophy I51.7 Hypertension, essential I10 Anxiety, generalized F41.1 Dyspepsia R10.13 Primary osteoarthritis of both knees M17.0 Osteoarthritis type: primary LFT elevation R79.89 Chronic hepatitis C virus genotype 3 infection B18.2 Chronic pruritus L29.9 CPT Codes EKG - CPT: 33961-Bzjdazowwezfuffej, Complete ([id number]) Time Spent (min) 40 Comment Reviewing chart/labs/EKG/cygj-rt-seuo/coordination of care Assessment & Plan Assessment & Plan (1) Left ventricular hypertrophy: Code(s): I51.7 - Cardiomegaly Category: Medical (2) Hypertension, essential: Comment: continue medications Code(s): I10 - Essential (primary) hypertension Category: Medical (3) Anxiety, generalized: Comment: continue medications Code(s): F41.1 - Generalized anxiety disorder Category: Medical (4) Dyspepsia: Comment: continue medications Code(s): R10.13 - Epigastric pain Category: Medical (5) Osteoarthritis of knees, bilateral: Code(s): M17.0 - Bilateral primary osteoarthritis of knee Category: Medical Qualifiers: Osteoarthritis type: primary Qualified Code(s): M17.0 - Bilateral primary osteoarthritis of knee (6) LFT elevation: Code(s): R79.89 - Other specified abnormal findings of blood chemistry Category: Medical (7) Chronic hepatitis C virus genotype 3 infection: Code(s): B18.2 - Chronic viral hepatitis C Category: Medical (8) Chronic pruritus: Code(s): L29.9 - Pruritus, unspecified Category: Medical Plan Chief Complaint Medication management for hypertension. Ongoing care History The patient is a 60-year-old female Hypertension: - The patient has a past medical history of essential hypertension. - Previously monitored blood pressures include a reading of 124/60 on December 04, and today's reading is 134/70. - The patient reports fluctuation in blood pressure associated with anxiety episodes. - The patient is currently on atenolol 100 mg daily for blood pressure management. Chronic itching Patient was taking hydroxyzine in the past and is requesting a refill Currently she is under care of Gastroenterology for hepatitis-C infection She is done with antibiotic and is now being observed Complained of feeling palpitations, EKG done today shows normal sinus rhythm signs of left ventricular hypertrophy Echocardiogram ordered for that reason Medical History: - Essential hypertension - Irritable Bowel Syndrome (IBS) - Anxiety disorder - Gastroesophageal Reflux Disease (GERD) - Hepatitis C infection Medications: - Atenolol 100 mg for hypertension - Dicyclomine 10 mg for irritable bowel syndrome stopped - Lexapro 10 mg for anxiety - famotidine 40 mg for GERD Social History: - The patient is advised to engage in regular exercise for weight management. - BMI is elevated at 30.6, indicating obesity, with a recommendation for weight loss. Problem List - Essential Hypertension - Anxiety Disorder - Gastroesophageal Reflux Disease (GERD) - Hepatitis C infection - Obesity - chronic itching - palpitations Diagnostic results - Labs: Electrolytes within normal limits, kidney function tests normal, liver enzymes stable, CBC shows normal hemoglobin level and normal white count. EKG : NSR no acute findings, LVH + Patient Instructions - Take atenolol daily as prescribed for blood pressure. - Exercise regularly to help with weight loss. - Monitor blood pressure and note any significant changes. - Report any side effects from medications. - Maintain a balanced diet to assist with weight management. - Echo heart ordered Orders: Orders CA echo transthoracic complete Today I10 - Essential (primary) hypertension, I51.7 - Cardiomegaly Medications: New hydroxyzine HCl 10 mg PO BEDTIME 90 tabs 0RF Discontinued losartan-hydrochlorothiazide 100-25 mg Discontinued Reason: Doctor's Order 1 tab PO DAILY 90 tabs 1RF Mavyret 100-40 mg (glecaprevir-pibrentasvir) must administer with a meal/food Discontinued Reason: Doctor's Order 3 tabs PO DAILY 4 weeks 84 tabs 1RF NS dicyclomine Discontinued Reason: Doctor's Order 10 mg PO TID 30 days PRN 30 caps 1RF abdominal pain R10.13 - Epigastric pain pantoprazole Discontinued Reason: Doctor's Order 40 mg PO BEDTIME 90 tabs 1RF Stomach acid furosemide (Lasix) Take 1 tab on Tue, Tue and Tuesday Discontinued Reason: Doctor's Order 20 mg PO QAM 30 days 20 tabs 3RF R60.0 - Localized edema
[2025-02-01 12:42] VITALS: BP 134/70; PULSE 84; RESP 18; TEMP 37.1; O2SAT 97; BMI 30.6
== END 2025-02-01 13:14 | disposition home or self-care (01) ==
LOC: HO.HMCC 12:40
PROVIDERS: PCP Internal Medicine; Visit Provider Internal Medicine
DX: I51.7 Cardiomegaly (principal); B18.2 Chronic viral hepatitis C; I10 Essential (primary) hypertension; F41.1 Generalized anxiety disorder; R10.13 Epigastric pain; M17.0 Bilateral primary osteoarthritis of knee; R79.89 Other specified abnormal findings of blood chemistry; L29.9 Pruritus, unspecified

== ENCOUNTER → 2025-02-01 12:39 | Outpatient (BNVA) | payer OTHER, SELFPAY | PROVIDERS: PCP Internal Medicine; Visit Provider Internal Medicine | DX: I10 Essential (primary) hypertension (principal); L29.9 Pruritus, unspecified; I51.7 Cardiomegaly; F41.1 Generalized anxiety disorder; R10.13 Epigastric pain; M17.0 Bilateral primary osteoarthritis of knee; R79.89 Other specified abnormal findings of blood chemistry; B18.2 Chronic viral hepatitis C; R60.0 Localized edema | CPT/HCPCS: 93005; 99212 ==

== ENCOUNTER 2025-03-13 15:10 | Outpatient (REF) | payer OTHER, SELFPAY ==
--- NOTE | ~2025-03-13 | XR_ITS ---
EXAMINATION: XR CHEST CLINICAL INFORMATION: R09.89 - Other specified symptoms and signs involving the circulatory an... COMPARISON: 09/14/2024 TECHNIQUE: 2 views of the chest were obtained. FINDINGS: The cardiac, hilar, and mediastinal contours are normal. The lungs are clear bilaterally. There is no pneumothorax or pleural effusion. There is no focal osseous or soft tissue abnormality. XR/XR chest 2V IMPRESSION: No active pulmonary disease. Electronically signed by: Theron Edwards MD 03/13/2025 03:49 PM EDT
== END 2025-03-13 15:11 | disposition home or self-care (01) ==
LOC: HO.HMGCX 15:10
PROVIDERS: PCP Internal Medicine; Visit Provider Internal Medicine
DX: R09.89 Other specified symptoms and signs involving the circulatory and respiratory systems (principal); Z79.899 Other long term (current) drug therapy
CPT/HCPCS: 71046; 96127; 99212

== ENCOUNTER 2025-03-13 15:10 | Outpatient (AMB) | payer OTHER, SELFPAY ==
[2025-03-13 15:14] VITALS: BP 138/82; PULSE 74; O2SAT 97; BMI 29.9
--- NOTE | 2025-03-13 15:14 | A.OFFPC_ITS ---
Vital Signs 03/13/25 15:14 Height 5 ft 4 in Weight 174 lb BMI 29.9 BP 138/82 Blood Pressure Location Lt brachial Position Sitting Pulse 74 Pulse Source Pulse Oximeter Pulse Oximetry (%) 97 Intake Visit Reasons: 4 month follow up In Home Caregiver Required: No Accompanied by: Self / Same As Patient Allergies No Known Allergies (No Known Allergies*) Allergy (Verified 03/13/25 15:14) Medication List - Last Reconciled 03/13/25 by Jose Manuel Saleh MD albuterol sulfate 90 mcg/actuation 2 puffs inhalation Q4-6H PRN 30 days atenolol 100 mg PO DAILY 90 days escitalopram oxalate (Lexapro) 10 mg PO DAILY famotidine 40 mg PO .q am 90 days hydroxyzine HCl 10 mg PO BEDTIME inhalational spacing device (Aerochamber MV spacer) As directed multivitamin 1 cap PO DAILY Tobacco use date assessed: 02/01/25 Dental Screening Dental Screen Date: 11/06/24 HPI 4 month follow up HPI Details History of Present Illness The patient is a 60 year old female presenting with persistent dry cough. She has returned from [place] after having a alevism ceremony Where she was exposed to a lot of people Dry cough: - Started a few weeks ago, with initial association with increased fever and throat pain. - Cough persists as a dry cough, at nigh t sometimes hear herself wheeze - there is no associated chest pain or n ausea vomiting. Family History: - Family members reportedly experiencing same symptoms Problem List - Persistent dry cough - not feeling well - wheezing at night Patient Instructions - Present for follow-up or consult in 10 days - Complete prescribed course of medicati ons, azithromycin, prednisone 5 mg once a day for 7 days, Delsym cough syrup - Undergo an X-ray immediately Review of Systems - General: No fever no chills - Neurological: No headaches - Ear nose throat: No sore throat no hearing difficulty no ear pain - Cardiovascular: No syncope, no chest pain, no palpitations - Gastrointestinal: No nausea vomiting or diarrhea Physical Exam General: No acute distress HEENT: Speaking in nasal voice, throat within normal limit Neck: Supple Respiratory system: Dry cough, able to talk in full sentences, no audible wheeze Cardiovascular: S1-S2 regular in rate and rhythm Gastrointestinal: No pain Extremities: No new findings 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 1. Little interest or pleasure in doing things: not at all 2. Feeling down, depressed, or hopeless: not at all 3. Trouble falling or staying asleep, or sleeping too much: not at all 4. Feeling tired or having little energy: not at all 5. Poor appetite or overeating: not at all 6. Feeling bad about yourself - or that you are a failure or have let yourself or your family down: not at all 7. Trouble concentrating on things, such as reading the newspaper or watching television: not at all 8. Moving or speaking so slowly that other people could have noticed. Or the opposite - being so fidgety or restless that you have been moving around a lot more than usual: not at all 9. Thoughts that you would be better off or of hurting yourself in some way: not at all Total score: 0 Depression Screening Interpretation: Negative Depression Screening Done: Yes 29295 - PHQ-9 Billing: Yes Source: Developed by Drs. Lio Ogden, Mildred Paez, Gen Butler and colleagues, with an educational radha from [employer]. Thrive Questionnaire Date Thrive assessed: 07/24/24 I am a: Patient What is your living situation today?: I choose not to answer this question Within the past 12 months, did the food you bought not last and you didn't have the money to get more?: I choose not to answer this question Within the past 12 months, did you worry whether your food would run out before you got money to buy more?: I choose not to answer this question Do you have trouble paying for medicines?: I choose not to answer this question Do you have trouble getting transportation to medical appointments?: I choose not to answer this question Do you have trouble paying your heating and electricity bill?: I choose not to answer this question Do you have trouble taking care of your child, family member or friend?: I choose not to answer this question Do you have trouble with day-to-day activities such as bathing, preparing meals, shopping, managing finances, etc.?: I choose not to answer this question Are you currently unemployed and looking for a job?: I choose not to answer this question Are you interested in more education?: I choose not to answer this question Please select the resources that you would like help with: None Currently or been in a relationship where the following occur: I choose not to answer THRIVE Score: 0 AUDIT C Alcohol Use Questionnaire (AUDIT-C) 1. How often do you have a drink containing alcohol?: Never 3. How often do you have six or more drinks on one occasion?: Never Total Score: 0 SACHIN-7 AMB Questionnaire SACHIN-7 Date SACHIN - 7 assessed: 09/14/24 Feeling nervous, anxious, or on edge: 0 = Not at all Not being able to stop or control worryin = Not at all Worrying too much about different things: 0 = Not at all Trouble relaxin = Not at all Being so restless that it is hard to sit still: 0 = Not at all Becoming easily annoyed or irritable: 0 = Not at all Feeling afraid as if something awful might happen: 0 = Not at all Total SACHIN-7 score (0-4 normal; 5-9 mild; 10-14 moderate; 15-21 severe): 0 Source: Developed by Drs. Lio Ogden, Mildred Paez, Gen Butler and colleagues, with an educational radha from [employer]. Physical exam (Primary Care) Vital Signs: Last Vital Signs Pulse 74 03/13/25 15:14 BP 138/82 03/13/25 15:14 Pulse Ox 97 03/13/25 15:14 BMI result Body Mass Index 29.9 Tobacco/Smoking Status: Tobacco use Status Tobacco use date assessed 02/01/25 03/13/25 15:16 Patient Tobacco Use Status Never used Tobacco 03/13/25 15:16 e-Cigarette/Vaping Use Never Used 03/13/25 15:16 PHQ-9: PHQ-9 Score PHQ-9: Total score 0 03/13/25 15:16 Depression Screening Interpretation: Negative Thrive Assessment: Date of Thrive Assessment Date Thrive assessed 07/24/24 03/13/25 15:16 Currently or been in a relationship where the following occur: I choose not to answer Coding Level of Care Code Est Pt Level 3 (57625) Diagnoses Chest congestion R09.89 Additional Codes PHQ-9 - 04730 - PHQ-9 Billing: Yes ([id number]) Assessment & Plan Assessment & Plan (1) Chest congestion: Code(s): R09.89 - Other specified symptoms and signs involving the circulatory and respiratory systems Category: Medical Plan History of Present Illness The patient is a 60 year old female presenting with persistent dry cough. She has returned from [place] after having a alevism ceremony Where she was exposed to a lot of people Dry cough: - Started a few weeks ago, with initial association with increased fever and throat pain. - Cough persists as a dry cough, at night sometimes hear herself wheeze - there is no associated chest pain or nausea vomiting. Family History: - Family members reportedly experiencing same symptoms Problem List - Persistent dry cough - not feeling well - wheezing at night Patient Instructions - Present for follow-up or consult in 10 days - Complete prescribed course of medications, azithromycin, prednisone 5 mg once a day for 7 days, Delsym cough syrup - Undergo an X-ray immediately Orders: Orders XR chest 2V Today R09.89 - Other specified symptoms and signs involving the circulatory and respiratory systems Medications: New azithromycin Take 2 tablets today then 1 daily 250 mg PO ONCE 6 tabs 0RF 5 days J06.9 - Acute upper respiratory infection, unspecified prednisone 5 mg PO DAILY 7 tabs 0RF 7 days dextromethorphan polistirex ER (Delsym 12 hour) 10 mL PO Q12H PRN 89 mL 0RF cough 10 days
== END 2025-03-13 15:32 | disposition home or self-care (01) ==
LOC: HO.HMCC 15:10
PROVIDERS: PCP Internal Medicine; Visit Provider Internal Medicine
DX: R09.89 Other specified symptoms and signs involving the circulatory and respiratory systems (principal)

== ENCOUNTER → 2025-03-13 15:35 | Outpatient (BNV) | payer OTHER, SELFPAY | PROVIDERS: PCP Internal Medicine; Visit Provider Radiology Diagnostic Radiology | DX: R09.89 Other specified symptoms and signs involving the circulatory and respiratory systems (principal) | CPT/HCPCS: 71046 ==

== ENCOUNTER → 2025-03-15 10:54 | Outpatient (REF) | payer OTHER, SELFPAY ==
--- NOTE | 2025-03-15 10:57 | CA_ITS ---
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 The visually estimated ejection fraction is >70%. - No obvious valvular pathology seen on this study. Findings Procedure Information Contrast agent, definity, is being given per protocol without apparent complications. Left Ventricle Normal left ventricular cavity size. There is mildly increased left ventricular wall thickness. The left ventricular systolic function is hyperdynamic. The visually estimated ejection fraction is >70%. There is no evidence of regional wall motion abnormalities. There is no dynamic left ventricular outflow tract obstruction. Diastolic function is normal for age. Right Ventricle Normal right ventricular cavity size. There is low normal right ventricular systolic function. Atria Both atria are normal in size. Aortic Valve There is a normal trileaflet aortic valve. There is no aortic valve stenosis. There is no aortic valve regurgitation. Mitral Valve There is mild mitral annular calcification. There is no mitral valve regurgitation. There is no mitral valve stenosis. Pulmonic Valve The pulmonic valve is likely normal. Tricuspid Valve There is mild tricuspid valve regurgitation. There is no evidence of pulmonary hypertension. Great Vessels The asc aorta is normal in size. Venous The inferior vena cava is mildly dilated and collapses greater than 50% with inspiration. Pericardium/Pleural There is no evidence of pericardial effusion. Prior Study Comparison No prior study available for comparison. Recommendations, Care & Conclusions No obvious valvular pathology seen on this study. Measurements 2D Linear Measurements IVSd: 1.25 0.6-0.9/0.6-1.0 cm LVIDd: 4.26 3.9-5.3/4.2-5.9 cm LVIDd Index: 2.32 2.4-3.2/2.2-3.1 cm/m2 LVIDs: 2.76 2.0-3.6 cm LVPWd: 0.84 0.7-1.1 cm LA Diam: 3.40 2.7-3.8/3.0-4.0 cm LAIDs Index: 1.85 1.5-2.3 cm/m2 LV Mass: 185.76 67-162/88-224 g LV Mass Index: 100.96 43-95/49-115 g/m2 LVOT Diam: 2.00 3.0+(-)1.3 cm 2D Systolic Function EF 4C: 67.10 >55% EF 2C: 65.60 >55% EF BiP: 66.20 >55% Mitral Valve MV Pk E: 0.74 MV PK A: 0.67 MV Decel Time: 244.00 E/A: 1.10 E'Lateral: 7.94 E'Medial: 5.87 E/E' Med: 12.60 E/E' Lat: 9.30 PHT: 71.00 MVA PHT: 3.10 Decel [place]: 3.02 Aortic Valve AoV Pk Robel: 1.46 AoV Mn Robel: 0.93 AoV VTI: 0.27 AoV Pk Grad: 9.00 Aov Mn Grad: 4.00 ERICKA Cont.VTI: 2.54 LVOT LVOT Pk Robel: 1.08 LVOT Mn Robel: 0.72 LVOT VTI: 0.22 LVOT Pk Grad: 5.00 LVOT Mn Grad: 2.00 LVOT Diam: 2.00 LVOT Area: 3.14 Diastolic Function MV Pk E: 0.74 MV Pk A: 0.67 E/A: 1.10 E'Medial: 5.87 E/E' Med: 12.60 E' Laterial: 7.94 E/E' Lat: 9.30 Right Ventricle TAPSE (mm): 16.50 TVS' Robel: 10.90 Tricuspid Valve TR Pk Robel: 2.33 TR Pk Grad: 22.00 RA Press: 8.00 RVSP: 30.00 Great Vessels Aorta Sinus of Valsalva: 2.87 2.0-3.[address] [place]: 2.57 1.7-3.4 cm Ao Asc: 3.40 2.1-3.4 cm Updated in Other Vendor System with Status of Final Sim Bean MD electronically signed on 03/16/2025 12:42:04 PM with status of Final
== END ==
LOC: HO.CARD 10:54
PROVIDERS: PCP Internal Medicine; Visit Provider Internal Medicine
DX: I51.7 Cardiomegaly (principal)
CPT/HCPCS: 93306; Q9957

== ENCOUNTER → 2025-03-15 10:57 | Outpatient (BNV) | payer OTHER, SELFPAY | PROVIDERS: PCP Internal Medicine; Visit Provider Internal Medicine | DX: I51.89 Other ill-defined heart diseases (principal); I51.7 Cardiomegaly | CPT/HCPCS: 93306 ==

== ENCOUNTER 2025-03-27 12:12 | Outpatient (AMB) | payer OTHER, SELFPAY ==
--- NOTE | 2025-03-27 12:15 | A.OFFPC_ITS ---
Vital Signs 03/27/25 12:18 03/27/25 12:33 Height 5 ft 4 in Weight 174 lb BMI 29.9 BP 150/84 H 139/89 Blood Pressure Location Lt brachial Position Sitting Respiration 16 Pulse 75 Pulse Source Pulse Oximeter Temp 98.5 F Temp Source Oral Pulse Oximetry (%) 98 Oxygen Delivery Method Room Air Intake Visit Reasons: 10 day follow up Allergies No Known Allergies (No Known Allergies*) Allergy (Verified 03/27/25 12:15) Medication List - Last Reconciled 03/27/25 by Jose Manuel Saleh MD atenolol 100 mg PO DAILY 90 days escitalopram oxalate (Lexapro) 10 mg PO DAILY famotidine 40 mg PO .q am 90 days inhalational spacing device (Aerochamber MV spacer) As directed multivitamin 1 cap PO DAILY Tobacco use date assessed: 02/01/25 Dental Screening Dental Screen Date: 11/06/24 HPI 10 day follow up HPI Details History The patient is a 60 year old female presenting for follow up Respiratory infection has improved now have residual cough remaining Elevated Blood Pressure: - Noted high blood pressure reading of 1 50 during the visit. Repeated blood pressure reading came down, she is taking atenolol 100 mg daily Oral Dryness and Nasal Issues: - Patient reports a very dry mouth and o ccasional dryness of the nose. Start Flonase nasal spray at night Anxiety: - Patient is on Lexapro (Escitalopram) f or managing anxiety. - tolerating medication no side effects Problem List - Essential Hypertension - Anxiety Disorder - Gastroesophageal Reflux Disease (GERD) - Respiratory Congestion - nasal congestion Patient Instructions Continue medications, monitor blood pressure at home Before next visit need labs order placed to be done before visit Patient is going to pocket done and will not be back until 4 months Review of Systems General: No fever no chills neurological: No headaches no dizziness ear nose throat: No sore throat no hearing difficulty no ear pain cardiovascular: No syncope, no chest pain, no palpitations gastrointestinal: No nausea vomiting or diarrhea endocrine: No polyuria polydipsia no heat intolerance genitourinary: No dysuria skin: No new complaints Physical Exam general: No acute distress HEENT: No acute findings neck: Supple respiratory system: Able to talk in full sentences, no audible wheeze no stridor cardiovascular: S1-S2 RRR, blood pressure high at 150 gastrointestinal: No pain extremities: No swelling 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 Cognitive needs: No Hearing needs: No Vision needs: Yes Questionnaire Thrive Questionnaire Date Thrive assessed: 07/24/24 I am a: Patient What is your living situation today?: I choose not to answer this question Within the past 12 months, did the food you bought not last and you didn't have the money to get more?: I choose not to answer this question Within the past 12 months, did you worry whether your food would run out before you got money to buy more?: I choose not to answer this question Do you have trouble paying for medicines?: I choose not to answer this question Do you have trouble getting transportation to medical appointments?: I choose not to answer this question Do you have trouble paying your heating and electricity bill?: I choose not to answer this question Do you have trouble taking care of your child, family member or friend?: I choose not to answer this question Do you have trouble with day-to-day activities such as bathing, preparing meals, shopping, managing finances, etc.?: I choose not to answer this question Are you currently unemployed and looking for a job?: I choose not to answer this question Are you interested in more education?: I choose not to answer this question Please select the resources that you would like help with: None Currently or been in a relationship where the following occur: I choose not to answer THRIVE Score: 0 SACHIN-7 AMB Questionnaire SACHIN-7 Date SACHIN - 7 assessed: 09/14/24 Source: Developed by DrsRoxane Ogden, Mildred Paez, Gen Butler and colleagues, with an educational radha from [email or web address]. Physical exam (Primary Care) Vital Signs: Last Vital Signs Temp 98.5 F 03/27/25 12:18 Pulse 75 03/27/25 12:18 Resp 16 03/27/25 12:18 BP 150/84 H 03/27/25 12:18 Pulse Ox 98 03/27/25 12:18 Oxygen Delivery Method Room Air 03/27/25 12:18 BMI result Body Mass Index 29.9 Tobacco/Smoking Status: Tobacco use Status Tobacco use date assessed 02/01/25 03/27/25 12:21 Patient Tobacco Use Status Never used Tobacco 03/27/25 12:21 e-Cigarette/Vaping Use Never Used 03/27/25 12:21 Thrive Assessment: Date of Thrive Assessment Date Thrive assessed 07/24/24 03/27/25 12:21 Currently or been in a relationship where the following occur: I choose not to answer Coding Level of Care Code Est Pt Level 4 (61847) Complex EM visit Add On G2211 Diagnoses Hypertension, essential I10 Anxiety, generalized F41.1 Dyspepsia R10.13 Dry mouth R68.2 Nasal congestion R09.81 Assessment & Plan Assessment & Plan (1) Hypertension, essential: Comment: continue medications Code(s): I10 - Essential (primary) hypertension Category: Medical (2) Anxiety, generalized: Comment: continue medications Code(s): F41.1 - Generalized anxiety disorder Category: Medical (3) Dyspepsia: Comment: continue medications Code(s): R10.13 - Epigastric pain Category: Medical (4) Dry mouth: Code(s): R68.2 - Dry mouth, unspecified Category: Medical (5) Nasal congestion: Code(s): R09.81 - Nasal congestion Category: Medical Plan History The patient is a 60 year old female presenting for follow up Respiratory infection has improved now have residual cough remaining Elevated Blood Pressure: - Noted high blood pressure reading of 150 during the visit. Repeated blood pressure reading came down, she is taking atenolol 100 mg daily Oral Dryness and Nasal Issues: - Patient reports a very dry mouth and occasional dryness of the nose. Start Flonase nasal spray at night Anxiety: - Patient is on Lexapro (Escitalopram) for managing anxiety. - tolerating medication no side effects Problem List - Essential Hypertension - Anxiety Disorder - Gastroesophageal Reflux Disease (GERD) - Respiratory Congestion - nasal congestion Patient Instructions Continue medications, monitor blood pressure at home Before next visit need labs order placed to be done before visit Patient is going to pocket done and will not be back until 4 months Medications: New fluticasone propionate 50 mcg/actuation (Flonase Allergy Relief) administer into each nostril 1 spray intranasal DAILY 16 grams 0RF 30 days
[2025-03-27 12:18] VITALS: BP 150/84; PULSE 75; RESP 16; TEMP 36.9; O2SAT 98; BMI 29.9
[2025-03-27 12:33] VITALS: BP 139/89
== END 2025-03-27 12:35 | disposition home or self-care (01) ==
LOC: HO.HMCC 12:13
PROVIDERS: PCP Internal Medicine; Visit Provider Internal Medicine
DX: I10 Essential (primary) hypertension (principal); F41.1 Generalized anxiety disorder; R10.13 Epigastric pain; R68.2 Dry mouth, unspecified; R09.81 Nasal congestion

== ENCOUNTER → 2025-03-27 12:12 | Outpatient (BNVA) | payer OTHER, SELFPAY | PROVIDERS: PCP Internal Medicine; Visit Provider Internal Medicine | DX: I10 Essential (primary) hypertension (principal); R05.9 Cough, unspecified; R68.2 Dry mouth, unspecified; F41.9 Anxiety disorder, unspecified; F41.1 Generalized anxiety disorder; R10.13 Epigastric pain; R09.81 Nasal congestion | CPT/HCPCS: 99212 ==

== ENCOUNTER 2025-04-04 12:32 | Outpatient (REF) | payer OTHER, SELFPAY ==
[2025-04-04 13:43] LABS: MANUAL DIFF FLAG NO
[2025-04-04 14:23] LABS: Hematocrit 41.6 % (37.0-47.0); Hemoglobin 13.1 g/dl (12.0-16.0); Imm Gran Abs Auto 0.01 X10*3/uL (0.00-0.03); Imm Gran Pct Auto 0.1 % (0.0-0.4); Lymphocytes Absolute Auto 2.8 X10*3/uL (1.2-4.9); Mean Corpuscular HGB Conc 31.5 g/dl (31.0-35.0); Mean Corpuscular Hemoglobin 23.9 pg (27.0-33.0); Mean Corpuscular Volume 75.9 fL (80.0-98.0); NRBC Abs Auto 0.000 X10*3/uL (0.0-0.012); NRBC Pct Auto 0.0 /100WBC (0.0-0.2); Platelet Count 288 X10*3/uL (160-400); Red Blood Count 5.48 X10*6/uL (4.20-5.50); White Blood Count 7.0 X10*3/uL (4.8-10.8)
[2025-04-04 14:52] LABS: Alanine Aminotransferase 15 U/L (0-31); Albumin Level 4.1 g/dL (3.5-5.0); Alkaline Phosphatase 138 U/L (39-117); Anion Gap 9 (12-20); Aspartate Amino Transferase 28 U/L (5-31); Blood Urea Nitrogen 11 mg/dL (9-16); Calcium 9.7 mg/dL (8.4-10.2); Carbon Dioxide 27 mmol/L (22-29); Chloride 112 mmol/L (96-108); Estimated Glomerular Filt Rate > 60; Potassium 4.4 mmol/L (3.3-5.1); Sodium 144 mmol/L (135-145); Total Protein 7.9 g/dL (6.5-8.0)
[2025-04-05 15:59] LABS: HCV Log PCR <1.18 NOT DETECTED Log IU/mL (NOT DETECTED); HepC Viral Load <15 NOT DETECTED IU/mL (NOT DETECTED)
== END 2025-04-04 12:33 | disposition home or self-care (01) ==
LOC: HO.LAB 12:32
PROVIDERS: PCP Internal Medicine; Visit Provider Internal Medicine Gastroenterology
DX: K21.9 Gastro-esophageal reflux disease without esophagitis (principal); B18.2 Chronic viral hepatitis C; K59.09 Other constipation; D50.9 Iron deficiency anemia, unspecified; Z79.899 Other long term (current) drug therapy
CPT/HCPCS: 36415; 80053; 85025; 86140; 87522; 99212

== ENCOUNTER 2025-04-04 12:32 | Outpatient (AMB) | payer OTHER, SELFPAY ==
--- NOTE | 2025-04-04 12:40 | A.OFFVIS_ITS ---
Vital Signs 04/04/25 12:44 Height 5 ft 4 in Weight 172 lb BMI 29.5 BP 135/63 Blood Pressure Location Lt brachial Position Sitting Pulse 60 Pulse Oximetry (%) 98 Oxygen Delivery Method Room Air Intake Visit Reasons: FU of hepatitis C Intake Note: Patient follow up for Chronic hepatitis C virus genotype 3 infection Patient cc: diarrhea and denies any other GI issues. Patient went to lab and was no order for it. 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 TODAY'S VISIT: Patient is accompanied by her son. Completed Hep C treatment end of November, Patient is here for follow up for Chronic hepatitis C virus genotype 3 infection Patient complains of diarrhea. Patient complains of nauseas, itchy body, abdominal pain, dizziness when she is walking with fatigue, side of throat pain with touch Complains of itching of hands, joint pains, feeling dizzy Treated with Hydoxyzine HCl 10 mg prn for itching Intermittent generalized abdominal pain associated with diarrhea x 1 month. Has two BMs a day Travelled to for [facility] and developed diarrhea ? symptoms of COVID infection after her return and did not get tested Notes abd pain after walking. Pain resolves after she sits for a little while and after a bowel movement Pt was prescribed Mavyret for Hep C on 10/18/24 PAST VISITS: Elevated LFTs for the past several years and positive Hep C ab (Hep C viral load of 8930 K on 09/14/24) Intermittent spontaneous bleeding and swelling of face and feet off and on for the past several months Also complains of dry month Complains of dry cough for the past several months Complains of intermittent heartburn and takes Pantoprazole 40 mg at bedtime for GERD. Complains of abdominal pain before a BM and improves after a BM Taking Figs every day with improvement in constipation Admits to sepideh gain Had a blood transfusion 4-5 years ago for severe iron def anemia Pt states her Mom had Hepatitis 15 to 16 yrs ago and she was checked and was negative at that time. Scheduled for EGD and Colon on 05/30/20 and cancelled the appt since she was feeling better - discussed importance of proceeding with GI evaluation. Complains of worsening fatigue for the past 2 yrs. Initially legs felt weak followed by arm weakness. Noted postprandial heaviness and heartburn. Intermittent dizziness and palpitations. Notes bleeding from gums. Complains of pain in the shoulders and legs. Complains of intermittent constipation and abdominal bloating. Worsening constipation since she started taking oral iron (takes 1-2 tab twice a day) Blood transfusion 2 months ago. Thinks she has lost 4-5 lbs. Complains of decreased appetite. Patient denies major cardiac or pulmonary problems, loud snoring or sleep apnea Denies problems with anesthesia in the past. Denies being on chronic anticoagulation. Patient denies known family history of colon polyps, colon cancer or other GI malignancies. PAST VISITS: Jyoti Beaver is a pleasant 55 year old lady, Tells me that she felt rather fatigued over a month ago. While doing her housework, she noted her legs were getting weak. even walking a few steps made her feel exhausted. She had to stop. Subsequently she noted a same thing happening to her arms. one-day she passed out. She went to her primary. labs revealed a hemoglobin of 6.2. she was advised to go to the emergency room right away. The patient was actually on her way to visit her sister in [place], so she elected to go to the ER there. There, the hemoglobin was repeated and was confirmed to be 6.2. She was there overnight. she was given a couple of units of blood and then discharged the next day. Subsequently she was placed on oral iron. She has noted her stool color to be black. She does not know if it was black previous to that since she did not pay much attention. She denies any past history of a similar episode. Denies any known family history of anemia or GI issues. She went through menopause about a year ago . IMAGING STUDIES: 10/13/24 ABD US showed Hepatic steatosis. ENDOSCOPIC STUDIES: 10/2014 colonoscopy was performed by Dr. Marcial - 2 diminutive polyps were removed found to be lymphoid follicles on biopsy. [facility] Medical History (Updated 04/15/25 @ 17:42 by Lobo Herrera MD) Microcytic anemia Normal colonoscopy Low hematocrit Dyspepsia Anxiety, generalized Hypertension, essential Surgical History Hx of colonoscopy (~10/2014) Family History Father Heart attack Mother Hepatitis C HTN (hypertension) Social History Household Members Other:: . 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 Cognitive needs: No Hearing needs: No Vision needs: Yes Review of Systems Const All systems reviewed & are unremarkable except as noted in HPI and below Physical Exam Vital Signs: Last Vital Signs Pulse 60 04/04/25 12:44 BP 135/63 04/04/25 12:44 Pulse Ox 98 04/04/25 12:44 Oxygen Delivery Method Room Air 04/04/25 12:44 BMI result Body Mass Index 29.5 Const General: healthy appearing and no acute distress Nutritional Appearance: obese Orientation/consciousness: patient oriented x3 Limitations: no limitations HEENT Head: Yes normal to inspection Ears: hearing grossly normal bilaterally Eyes Sclerae: sclerae normal Pupils: Equal, round and reactive pupils present Neck Neck: Yes normal visual inspection Chest Chest palpation & inspection: normal inspection of the chest Resp Effort & Inspection: normal respiratory effort Auscultation: clear to auscultation bilaterally Cardio Palpation: normal PMI Rate: regular rate Rhythm: regular rhythm Heart sounds: S1 normal heart sound present, S2 normal heart sound present and no murmurs GI Palpation (GI): Soft to palpation, nontender and No hepatosplenomegaly present Auscultation: normal bowel sounds Rectal Exam - Female: deferred Skin General skin exam: no rashes or lesions noted Neuro General: patient oriented x3, gait normal and moves all extremities Cranial nerves: Yes Equal, round and reactive pupils present Psych Appearance: grossly normal Mental Status: mental status grossly normal Assessment & Plan Assessment & Plan (1) Dyspepsia: Comment: continue medications Code(s): R10.13 - Epigastric pain Category: Medical (2) GERD (gastroesophageal reflux disease): Code(s): K21.9 - Gastro-esophageal reflux disease without esophagitis Category: Medical Qualifiers: Esophagitis presence: without esophagitis Qualified Code(s): K21.9 - Gastro-esophageal reflux disease without esophagitis (3) Chronic hepatitis C virus genotype 3 infection: Code(s): B18.2 - Chronic viral hepatitis C Category: Medical (4) Chronic constipation: Code(s): K59.09 - Other constipation Category: Medical (5) Intermittent diarrhea: Code(s): R19.7 - Diarrhea, unspecified Category: Medical Plan 60 year-old Serbian F[place]ian female with hypertension. Patient was seen at [facility] (in [place]) in 03/2020 for severe iron deficiency anemia and received blood transfusion. She has been taking oral iron since then with resolution of anemia. She is post menopausal for the past 5.5 years. Patient complains of postprandial fullness, heartburn and intermittent constipation. Patient was scheduled for an upper endoscopy and colonoscopy on 05/30/2020. She canceled her appointment since she was feeling better. Iron deficiency anemia can be due to upper GI source - erosive esophagitis, hiatal hernia with ulcers, gastritis or peptic ulcer disease, NSAID related small bowel ulcers. Also need to rule out a lower GI source for her anemia - large polyp, colonic AVM. Patient is willing to reschedule her appointment for EGD and colonoscopy for further evaluation of iron deficiency anemia. Patient was advised to continue oral iron and vitamin C once a day and stop 1 week before her EGD and Colon appt. 09/25/24 Pt seen for elevated LFTS and positive Hep C antibody with viral load of 89.3 million IU/ml I will check hep C genotype Patient has been counseled on vaccinations against Hepatitis A and B, Consents to vaccination if not immune patient to review literature about Hep C, medication/treatment, Follow up in 3 weeks to discuss results of labwork, and to decide with MD if treatment will be started Notes: Pt is immune to Hep A and B 10/18/24 Labs showed Hep C Genotype 3. Pt was advised treatment with Mavyret 100-40 mg (glecaprevir-pibrentasvir) for 8 weeks Risks and side effects of the medication were reviewed with the patient and her son. Compliance with treatment was emphasized. 12/04/24 Pt will be completing Hep C treatment with Mavyret end of November, Complains of itching of hands, joint pains, feeling dizzy Intermittent generalized abdominal pain. Pt prescribed dicyclomine prn for abdominal pain 04/04/25 Pt traveled to [facility] and noted Intermittent generalized abdominal pain associated with diarrhea x 1 month. Pt advised to check GI panel. 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 Prescription sent for paromomycin 750 mg TID for 7 days - to take after completion of metronidazole therapy. Orders: Orders GI Panel 04/05/25 R19.7 - Diarrhea, unspecified Calprotectin, Fecal 04/05/25 R19.7 - Diarrhea, unspecified CDiff Gene PCR 04/05/25 R19.7 - Diarrhea, unspecified Complete Blood Count Auto Diff 04/04/25 R19.7 - Diarrhea, unspecified Comprehensive Met. Panel 04/04/25 B18.2 - Chronic viral hepatitis C Hepatitis C Viral Load 04/04/25 B18.2 - Chronic viral hepatitis C C Reactive Protein 04/04/25 R19.7 - Diarrhea, unspecified Medications: New famotidine 20 mg PO BID 120 tabs 2RF 60 days K21.9 - Gastro-esophageal reflux disease without esophagitis Coding Level of Care Code Est Pt Level 4 (70307) Diagnoses Dyspepsia R10.13 Gastroesophageal reflux disease without esophagitis K21.9 Esophagitis presence: without esophagitis Chronic hepatitis C virus genotype 3 infection B18.2 Chronic constipation K59.09 Intermittent diarrhea R19.7 Time Spent (min) 21
[2025-04-04 12:44] VITALS: BP 135/63; PULSE 60; O2SAT 98; BMI 29.5
== END 2025-04-04 13:17 | disposition home or self-care (01) ==
LOC: HO.HGI 12:33
PROVIDERS: PCP Internal Medicine; Visit Provider Internal Medicine Gastroenterology
DX: R10.13 Epigastric pain (principal); K21.9 Gastro-esophageal reflux disease without esophagitis; B18.2 Chronic viral hepatitis C; K59.09 Other constipation; R19.7 Diarrhea, unspecified
CPT/HCPCS: 99214

== ENCOUNTER 2025-04-05 12:30 | Outpatient (REF) | payer OTHER, SELFPAY ==
[2025-04-05 17:50] LABS: CDiff Gene PCR NEGATIVE (Negative)
[2025-04-06 10:41] LABS: E. coli EAEC Not Detected (Not Detect.); E. coli EPEC Not Detected (Not Detect.); E. coli ETEC Not Detected (Not Detect.); E. coli STEC Not Detected (Not Detect.); Shigella sp./EIEC Not Detected (Not Detect.)
[2025-04-12 17:24] LABS: Calprotectin, Fecal 109 mcg/g
== END 2025-04-05 12:31 | disposition home or self-care (01) ==
LOC: HO.HMGCLNP 12:30
PROVIDERS: PCP Internal Medicine; Visit Provider Internal Medicine Gastroenterology
DX: R19.7 Diarrhea, unspecified (principal)
CPT/HCPCS: 83993; 87493; 87507